=== PATIENT | female | born 1960 | race Caucasian/White ===

== ENCOUNTER → 2017-06-09 15:34 | Outpatient (CLI) | payer OTHER, SELFPAY ==
--- NOTE | 2017-06-09 15:51 | CT_ITS ---
STUDY: CTA CHEST REASON FOR EXAM: Female, 57 years old. Chest pain. RADIATION DOSAGE (If Supplied By Facility): CTDIvol = ( 13.81 ) mGy, DLP = ( 613.20 ) mGycm TECHNIQUE: The examination was performed with the intravenous administration of 75ml ml of Isovue 370 contrast material. Post-processing of the angiographic images was performed, with multiplanar reformation and 3D reconstruction. Individualized dose optimization techniques were used for this CT. COMPARISON: None. FINDINGS: Within the lower pole of the left lobe of the thyroid gland there is a 2.2 x 2.3 x 2.0 cm well-circumscribed low-attenuation rounded focus. There are additional too small to characterize low-attenuation foci within the thyroid gland. Within the left breast there is a 6.5 mm well-circumscribed nodular density present. There is enhancement of the main pulmonary artery and right and left pulmonary arteries. Normal enhancement of the bilateral peripheral pulmonary arteries. There is no demonstrated pulmonary embolism. Normal thoracic aorta and visualized great vessels. There is no demonstrated aortic dissection. Normal heart and pericardium. Normal mediastinum. Normal hilar regions. Normal visualized trachea and bronchi. The lungs are well expanded. Normal pulmonary parenchyma. Normal pleura. Normal chest wall structures. There are degenerative changes of thoracic spine. Normal visualized upper abdomen. CT/CTA Chest W/WO Contrast IMPRESSION: No demonstrated pulmonary embolism or arterial dissection. Indeterminate cystic focus within the left lobe of the thyroid gland associated with additional too small to characterize low-attenuation foci, recommend a thyroid ultrasound for further characterization. Indeterminate nodular density within the left breast that may reflect underlying lymph node, consider mammogram and/or ultrasound for further evaluation. Electronically Signed: Josefa Goel MD at 17:06 EDT Tel , Service support ,
[2017-06-09 16:11] LABS: CREATININE FINGERSTICK < 0.6 mg/dL (0.55-1.02); EGFR FINGERSTICK > 60.0000 mL/min (>60)
[2017-06-09 19:17] LABS: Anion Gap 6 (5-15); BUN 13 mg/dL (7-18); BUN/Creat Ratio 22.8 RATIO (10-20); Calcium,Total 10.2 mg/dL (8.5-10.1); Chloride 105 mmol/L (98-107); Creatinine, Serum 0.57 mg/dL (0.55-1.02); EST Glomerular Filtration Rate 115 mL/min (>60); Est Glom Filt Rate - Afr Amer 139 mL/min (>60); Glucose 127 mg/dL (74-106); Potassium 3.9 mmol/L (3.5-5.1); Sodium Level 139 mmol/L (136-145)
[2017-06-09 19:50] LABS: Vitamin D,25 Hydroxy 10.7 ng/mL (29.95-100.01)
== END ==
PROVIDERS: Family Provider Family Medicine; PCP Family Medicine; Visit Provider Family Medicine
DX: Z00.00 Encounter for general adult medical examination without abnormal findings (principal); R07.9 Chest pain, unspecified
CPT/HCPCS: 71275; 80048; 82306; Q9967; A4216

== ENCOUNTER → 2017-06-09 17:23 | Outpatient (CLI) | payer OTHER, SELFPAY | PROVIDERS: Family Provider Family Medicine; PCP Family Medicine; Visit Provider Family Medicine | DX: Z00.00 Encounter for general adult medical examination without abnormal findings (principal) ==

== ENCOUNTER → 2017-06-16 09:31 | Outpatient (CLI) | payer OTHER, SELFPAY ==
--- NOTE | 2017-06-16 09:34 | BI_ITS ---
MAMMOGRAPHY - BILATERAL DIAGNOSTIC REASON FOR EXAM: Female, 57 years old. History of a 6.3 mm nodule in the left breast seen on prior CT scan of the thorax. PERTINENT HISTORY: Mother with breast cancer. TECHNIQUE: Digital bilateral breast marii (3D mammographic acquisition) in the CC and MLO projections. 2-D mediolateral oblique (MLO) and craniocaudad (CC) views of both breasts were obtained. CAD: Full Field Digital Mammography with Computer Added Detection was performed. COMPARISON: Comparison is made with prior outside examination dated December 14, 2015. FINDINGS: Breast Composition: The breasts are heterogeneously dense, which may obscure small masses. Stable 1.5 cm x 1 cm well-defined nodule in the inferior medial portion of the left breast. Correlation with ultrasound is recommended. Stable calcification in the retroareolar region of the left breast. A tissue clip marker is seen at the biopsy site. No other significant abnormalities are identified. BI/DIAG MAMM W/CAD, BILAT IMPRESSION: Stable nodular density in the inferior medial aspect of the left breast as described. Correlation with ultrasound is recommended. ASSESSMENT CATEGORY: BIRADS Category 0: Incomplete. Need additional imaging evaluation. A letter regarding these results will be sent to the patient by the facility within 30 days. Approximately 10% of breast cancers are not detected by mammography. A normal mammogram should not delay biopsy of a clinically suspicious abnormality. Electronically Signed: Dennis Ram MD at 12:35 EDT Tel [phone], Service support ,
--- NOTE | 2017-06-16 10:44 | US_ITS ---
STUDY: ULTRASOUND BREAST - LEFT REASON FOR EXAM: Female, 57 years old. Left breast mass. TECHNIQUE: Axial and longitudinal images of the LEFT breast were performed with a high resolution ultrasound transducer. COMPARISON: Comparison is made with prior mammogram done earlier today and prior CT scan of thorax dated June 09, 2017. FINDINGS: LEFT Breast: There is a 1 cm x 1 cm x 0.6 cm hypoechoic slightly lobulated nodule at the 8:00 position in the breast at 3 cm from the nipple. This corresponds to the mammographic abnormality. A biopsy is recommended for further evaluation. US/Breast Limited Unilateral IMPRESSION: 1 cm x 1 cm x 0.6 cm slightly lobulated hypoechoic solid nodule at the 8:00 position in the breast at 3 cm from nipple. This corresponds to the mammographic findings. A biopsy is recommended. ASSESSMENT CATEGORY: BIRADS Category 4: Suspicious - Biopsy Should Be Considered. A letter regarding these results will be sent to the patient by the facility within 30 days. Electronically Signed: Dennis Ram MD at 13:24 EDT Tel [phone], Service support ,
--- NOTE | 2017-06-16 11:02 | US_ITS ---
STUDY: THYROID ULTRASOUND REASON FOR EXAM: Female, 57 years old. Nodule TECHNIQUE: Ultrasound evaluation of the thyroid was performed with real-time and static jennings-scale imaging. COMPARISON: None. FINDINGS: RIGHT LOBE: The right lobe of the thyroid gland measures 8.8 x 1.8 x 1.7 cm. There is a heterogeneous echotexture. There are multiple small cystic structures within the right thyroid measuring 1.0 x 0.8 x 0.5 cm. LEFT LOBE: The left lobe of the thyroid gland measures 5.7 x 1.9 x 1.4 cm. There is a heterogeneous echotexture. There are multiple nodules in the left thyroid some isodense and/or solid. There are multiple cystic structures with central calcification. The largest of which measures 2.1 x 1.0 cm which is partially solid and partially cystic with vascularity. The largest cyst on the left side measures 2.3 x 1.6 cm. ISTHMUS: The isthmus measures 4 mm . The regional lymph nodes are normal. US/Thyroid IMPRESSION: Endings are most consistent with a multinodular goiter. There are most likely benign-appearing colloid cysts on the right side. On the left side there are larger cysts and a focal more solid-appearing mass that measures 2.1 x 1.0 cm partially cystic and partially solid. Lesser remote study can prove long-term stability, Recommend follow-up in 6 months to ensure stability. Electronically Signed: Zulema Cárdenas MD at 15:33 EDT Tel , Service support ,
== END ==
LOC: OPBI 09:32
PROVIDERS: Family Provider Family Medicine; PCP Family Medicine; Visit Provider Family Medicine
DX: Z12.31 Encounter for screening mammogram for malignant neoplasm of breast (principal); N63.42 Unspecified lump in left breast, subareolar; E04.1 Nontoxic single thyroid nodule
CPT/HCPCS: 76536; 76642; 77062; 77066; G0279

== ENCOUNTER → 2017-06-17 12:48 | Outpatient (CLI) | payer OTHER, SELFPAY ==
--- NOTE | 2017-06-17 12:56 | BD_ITS ---
STUDY: DUAL ENERGY X-RAY ABSORPTIOMETRY / DXA REASON FOR EXAM: Female, 57 years old. The patient is postmenopausal. Loss of height. TECHNIQUE: Bone Mineral Density (BMD) measurements of lumbar spine and bilateral hips were obtained. COMPARISON: None. FINDINGS: Lumbar Spine (L1-L4): g/cm2 (1.042) / T-score (-1.3) / Z-score (-0.2) Findings are suggestive of osteopenia with a moderate fracture risk. Left Femur Total: g/cm2 (1.031) / T-score (0.2) / Z-score (1.1) Left Femoral Neck: g/cm2 (0.957) / T-score (-0.6) / Z-score (0.6) Right Femur Total: g/cm2 (1.007) / T-score (0.0) / Z-score (0.9) Right Femoral Neck: g/cm2 (0.960) / T-score (-0.6) / Z-score (0.6) BD/Dexa Bone Density Study IMPRESSION: The patient is considered osteopenic at the level of the lumbar spine as outlined below according to World Juan David Organization (WHO) criteria with a moderate fracture risk. Reference Information: The T-score is the number of standard deviations above or below the standard which is normal for young adults at their peak bone mineral density. The World Health Organization (WHO) interprets the T-scores as follows: Above -1 Normal bone density Between -1 and -2.5 Osteopenia Equal to / or below -2.5 Osteoporosis As a practical clinical guideline, osteopenia may be graded as follows: Mild -1 through -1.5 Moderate -1.6 through -2.0 Severe -2.1 through -2.4 The Z-score is the number of standard deviations above or below age-matched controls. A Z-score of less than -1.5 would be considered abnormal. References: 1. NIH Osteoporosis and Related Bone Diseases http://www.osteo.org 2. International Society for Clinical Densitometry http://www.iscd.org 3. National Osteoporosis Foundation http://www.nof.org Electronically Signed: Dennis Ram MD at 15:00 EDT Tel [phone], Service support ,
== END ==
PROVIDERS: Family Provider Family Medicine; PCP Family Medicine; Visit Provider Family Medicine
DX: Z78.0 Asymptomatic menopausal state (principal)
CPT/HCPCS: 77080

== ENCOUNTER → 2017-07-01 08:47 | Outpatient (CLI) | payer OTHER, SELFPAY ==
--- NOTE | 2017-06-30 14:00 | BRBX_PTH ---
PATIENT: FRANKO SARMIENTO LOC: [facility] U#:[id number] AGE/SX: 65/F ROOM: RE07/01/[address]: Dr. Cheo Serna MD : 1960 BED: DIS: SPEC #: [id number] RECD: 07/01/17 08:44 STATUS: DAVID CHAPIS #: [id number] LUCHO: 06/30/17 14:[address]: Cheo Serna DEPT: SURGICAL PATHOLOGY RECD BY: Dereck Schwartz Tissues: Left breast, NOS Procedures: Surgery Specimen Level IV HEADER OPERATION: Needle core biopsy left breast PRE-OP DIAGNOSIS: Abnormal mammogram R92.8 TISSUE SUBMITTED: Left breast tissue ISCHEMIC TIME: <30 seconds FIXATION TIME: 29 hours MICROSCOPIC DIAGNOSIS Left breast, core biopsy: Fibroadenoma. AM:ayla 07/02/17 COMMENT Reference is made to the patient?s left breast, core biopsy from 2014 ([id number]) in which a fibroadenoma was identified. MICROSCOPIC DESCRIPTION Slides are reviewed. GROSS DESCRIPTION Received in fixative is one container labeled with the patient's name and designated left breast tissue. The specimen consists of multiple elongated fragments of castanon-yellow fibroadipose tissue that in aggregate measure 1 x 0.3 x 0.1 cm. The entire specimen is submitted in one cassette. / SJ:rg 07/01/17 TC:5 [facility]: [id number]
--- NOTE | 2017-06-30 14:00 | FLU_PTH ---
PATIENT: FRANKO SARMIENTO LOC: [facility] U#:[id number] AGE/SX: 65/F ROOM: RE07/01/[address]: Dr. Cheo Serna MD : 1960 BED: DIS: SPEC #: [id number] RECD: 07/01/17 08:44 STATUS: DAVID CHAPIS #: [id number] LUCHO: 06/30/17 14:[address]: Cheo Serna DEPT: CYTOLOGY RECD BY: Dereck Schwartz Tissues: A - Thyroid gland, NOS B - Thyroid gland, NOS Procedures: Pap Stain (control) Special Stain Group II Surgery Specimen Level IV Cell Block Cytospin Fluid Cytology Other HEADER OPERATION: Ultrasound-guided fine needle aspiration left thyroid x2 PRE-OP DIAGNOSIS: Multinodular goiter E04.2 TISSUE SUBMITTED: A ? Left thyroid nodule fluid for cytology, B - Left thyroid nodule 12 slides DIAGNOSIS CYTOLOGY A. Fine needle aspiration, left thyroid nodule (cytospin and cell block): Negative for malignant cells. See comment. B. Fine needle aspiration, left thyroid nodule (smears): Adequate for evaluation. Negative, consistent with colloid nodule. AM:ayla 07/02/17 COMMENT A. The specimen is virtually acellular. CYTOLOGY STUDY Slides are reviewed. CYTOLOGY GROSS A - Received is 4 ml of red cloudy fluid labeled with the patient's name and and designated per the requisition as left thyroid. Submitted for cytology preparation including cell block. B - Received are 12 smears labeled with the patient's name and designated per the requisition as left thyroid nodule. Submitted for staining. / 07/01/17 TC:5 CPT: 93778, 15516, 25550
== END ==
PROVIDERS: Visit Provider Surgery
DX: E04.2 Nontoxic multinodular goiter (principal); R92.8 Other abnormal and inconclusive findings on diagnostic imaging of breast
CPT/HCPCS: 88108; 88161; 88305; 88313

== ENCOUNTER → 2017-09-24 11:45 | Outpatient (CLI) | payer OTHER, SELFPAY ==
[2017-09-24 14:51] LABS: Anion Gap 10 (5-15); BUN 14 mg/dL (7-18); BUN/Creat Ratio 21.7 RATIO (10-20); Calcium,Total 9.9 mg/dL (8.5-10.1); Chloride 108 mmol/L (98-107); Creatinine, Serum 0.64 mg/dL (0.55-1.02); EST Glomerular Filtration Rate 100 mL/min (>60); Est Glom Filt Rate - Afr Amer 121 mL/min (>60); Glucose 122 mg/dL (74-106); Potassium 4.5 mmol/L (3.5-5.1); Sodium Level 144 mmol/L (136-145); Thyroid Stim Hormone (TSH) 1.44 uIU/mL (0.358-3.74)
== END ==
PROVIDERS: Family Provider Family Medicine; PCP Family Medicine; Visit Provider Family Medicine
DX: E11.9 Type 2 diabetes mellitus without complications (principal); M54.6 Pain in thoracic spine
CPT/HCPCS: 36415; 71110; 80048; 83036; 84443

== ENCOUNTER → 2017-10-02 12:44 | Outpatient (CLI) | payer OTHER, SELFPAY | PROVIDERS: Family Provider Family Medicine; PCP Family Medicine; Visit Provider Family Medicine | DX: R07.9 Chest pain, unspecified (principal) | CPT/HCPCS: 71260; Q9967 ==

== ENCOUNTER → 2018-12-15 | Outpatient (CLI) | payer SELFPAY ==
[2018-12-18 17:01] LABS: HPV Reflexed? NOT INDICATED
== END | disposition home or self-care (01) ==
LOC: MFPLAB 15:57 → LABSPEC 16:00
PROVIDERS: Family Provider Family Medicine; PCP Family Medicine; Referring Provider Family Medicine; Visit Provider Nurse Practitioner Family
DX: Z01.419 Encounter for gynecological examination (general) (routine) without abnormal findings (principal)
CPT/HCPCS: 88175; G0145

== ENCOUNTER → 2018-12-24 | Outpatient (CLI) | payer OTHER, SELFPAY ==
--- NOTE | 2018-12-24 09:33 | BI_ITS ---
MAMMOGRAPHY - BILATERAL SCREENING REASON FOR EXAM: Female, 58 years old. Routine annual screening examination. PERTINENT HISTORY: Mother with breast cancer. Prior left breast biopsy. TECHNIQUE: Digital bilateral breast godfrey (3D mammographic acquisition) in the CC and MLO projections. 2-D mediolateral oblique (MLO) and craniocaudad (CC) views of both breasts were obtained. CAD: Full Field Digital Mammography with Computer Added Detection was performed. COMPARISON: Comparison is made with prior study dated June 16, 2017. FINDINGS: Breast Composition: The breasts are heterogeneously dense, which may obscure small masses. A tissue clip marker is seen within a 1 cm well-defined nodule in the inferior medial portion of the left breast. A tissue clip marker is seen within it. Stable appearance of the bilateral axillary lymph nodes. No other significant abnormalities are identified. Status post biopsy of the nodular density in the inferior medial aspect of the left breast. There has been no significant change since the prior study. BI/SCREEN MAMM (CAD) W/GODFREY BILAT IMPRESSION: Stable bilateral screening mammogram. Yearly follow-up mammogram recommended. (A) ASSESSMENT CATEGORY: BIRADS Category 2: Benign. A letter regarding these results will be sent to the patient by the facility within 30 days. Approximately 10% of breast cancers are not detected by mammography. A normal mammogram should not delay biopsy of a clinically suspicious abnormality. [id number] Electronically Signed: Dennis Ram, at 10:26 EST , Service support ,
== END | disposition home or self-care (01) ==
PROVIDERS: Family Provider Family Medicine; PCP Family Medicine; Referring Provider Family Medicine; Visit Provider Family Medicine
DX: Z12.31 Encounter for screening mammogram for malignant neoplasm of breast (principal)
CPT/HCPCS: 77063; 77067

== ENCOUNTER 2020-04-25 13:30 | Outpatient (RCR) | payer OTHER, SELFPAY ==
[2020-04-25] MEDS: COVID-19 VACC, MRNA(PFIZER)/PF 30 MCG/0.3 ML SYRINGE IM (18:16)
[2020-05-16] MEDS: COVID-19 VACC, MRNA(PFIZER)/PF 30 MCG/0.3 ML SYRINGE IM (18:10)
== END 2020-04-25 23:59 ==
LOC: IMMUN 13:30
PROVIDERS: PCP Family Medicine; Referring Provider Family Medicine; Visit Provider Family Medicine
DX: Z23 Encounter for immunization (principal)
CPT/HCPCS: 0001A; 0002A; 91300

== ENCOUNTER → 2021-01-17 | Outpatient (CLI) | payer OTHER, SELFPAY ==
[2021-01-17 16:23] LABS: Bacteria 0 SEEN /hpf (None Seen); Mucous, Urine 0 SEEN /hpf (<or=2+); Red Blood Cells-Urine 0 SEEN /hpf (0-5); Squamous Epithelial Cells - UA 0 SEEN /hpf (5-10); White Blood Cells 0 SEEN /hpf (0-5)
[2021-01-17 16:41] LABS: Color, Urine Yellow (Yellow); Glucose, Dipstick 250 mg/dl (Normal); Ketone-Dipstick Negative (Negative); Leukocyte Esterase-Dipstick 25 /ul (Negative); Nitrite-Dipstick Negative (Negative); Occult Blood-Urine Negative /ul (Negative); Protein-Dipstick Negative (Negative); Specific Gravity, Urine 1.015 (1.002-1.030); Urine Bilirubin Dipstick Negative (Negative); Urine Clarity Clear (Clear); Urine Urobilinogen Normal (Normal)
== END | disposition home or self-care (01) ==
LOC: LABSPEC 15:40
PROVIDERS: PCP Family Medicine; Visit Provider Physician Assistant
DX: R35.0 Frequency of micturition (principal)
CPT/HCPCS: 81001; 87086

== ENCOUNTER → 2021-01-18 08:14 | Outpatient (CLI) | payer OTHER, SELFPAY ==
[2021-01-18 11:02] LABS: Absolute Lymphocyte Count 1.51 X10^3/uL (0.83-4.51); Absolute Neutrophil Count 5.9 X10^3/uL (2.0-7.7); Basophil# 0.02 X10^3/uL; Basophil% 0.2 % (0-1); Eosinophil# 0.25 X10^3/uL; Hematocrit 46.8 % (37-47); Hemoglobin 15.1 g/dL (12.0-15.0); Lymphocyte # 1.51 X10^3/ul (0.83-4.51); Mean Corp Hgb Conc 32.3 g/dL (32-36); Mean Corpuscular Hgb 29.2 pg (27.0-32.0); Mean Corpuscular Volume 90.5 fL (81-99); Mean Platelet Vol. 9.1 fl (6.2-12.0); Monocyte% 8.3 % (0-10); NRBC Flagged by Analyzer 0 % (0-5); Neutrophil % 70.1 % (47-70); Platelet Count 253 K/mm3 (150-450); RBC Distribution Width CV 12.6 % (11.6-14.6); RBC Distribution Width SD 41.9 fl (35.1-43.9); Red Blood Count 5.17 M/mm3 (4.2-5.4); White Blood Count 8.4 K/mm3 (4.4-11.0)
[2021-01-18 11:20] LABS: Hemoglobin A1c 9.4 % (3.8-5.6)
[2021-01-18 11:24] LABS: Anion Gap 7 (5-15); BUN 13 mg/dL (7-18); BUN/Creat Ratio 20.8 RATIO (10-20); Calcium,Total 10.1 mg/dL (8.5-10.1); Chloride 105 mmol/L (98-107); Cholesterol 225 mg/dL (200); Creatinine, Serum 0.63 mg/dL (0.55-1.02); EST Glomerular Filtration Rate 102 mL/min (>60); Est Glom Filt Rate - Afr Amer 124 mL/min (>60); Glucose 269 mg/dL (74-106); High Density Lipoprotein 56 mg/dL; Potassium 4.1 mmol/L (3.5-5.1); Sodium Level 139 mmol/L (136-145); Triglycerides 225 mg/dL; Very Low Density Lipoprotein 45 mg/dL (5-40)
[2021-01-18 15:36] LABS: Microalbumin,Random Urine 39.9 mg/L (NO RANGE EST.); Microalbumin:Creatinine Ratio 26.2 mg/g CRE (<30 mg/g CRE)
== END ==
PROVIDERS: PCP Family Medicine; Referring Provider Family Medicine; Visit Provider Family Medicine
DX: E11.65 Type 2 diabetes mellitus with hyperglycemia (principal); R53.83 Other fatigue
CPT/HCPCS: 36415; 80048; 80061; 82043; 82570; 83036; 85025

== ENCOUNTER 2021-04-20 13:34 | Outpatient (CLI) | payer MEDICAID, SELFPAY ==
--- NOTE | 2021-04-20 13:38 | BI_ITS ---
MAMMOGRAPHY - BILATERAL SCREENING REASON FOR EXAM: Female, 61 years old. Routine annual screening examination. PERTINENT HISTORY: Mother with breast cancer. Prior left breast biopsy. TECHNIQUE: Digital bilateral breast godfrey (3D mammographic acquisition) in the CC and MLO projections. 2-D mediolateral oblique (MLO) and craniocaudad (CC) views of both breasts were obtained. CAD: Full Field Digital Mammography with Computer Added Detection was performed. COMPARISON: Comparison is made with prior study dated 12/24/2018 and 06/16/2017. FINDINGS: Breast Composition: The breasts are heterogeneously dense, which may obscure small masses. New focal cluster microcalcification is seen in the mid medial portion of the left breast. Biopsy recommended. A tissue clip marker is once again seen within a 1 cm well-defined nodule in the inferior medial portion of the left breast. Stable calcifying nodule in the retroareolar region of the left breast. No other significant abnormalities are identified. BI/SCRN MAMM (CAD)W/GODFREY BILAT IMPRESSION: New focal cluster microcalcification seen in the mid medial portion of the left breast. Biopsy is recommended. ASSESSMENT CATEGORY: BIRADS Category 4: Suspicious - Biopsy Should Be Considered. A letter regarding these results will be sent to the patient by the facility within 30 days. Approximately 10% of breast cancers are not detected by mammography. A normal mammogram should not delay biopsy of a clinically suspicious abnormality. [id number] Electronically Signed: Dennis Ram MD at 14:28 EST ,
== END 2021-04-20 23:59 | disposition home or self-care (01) ==
PROVIDERS: PCP Family Medicine; Referring Provider Internal Medicine; Visit Provider Internal Medicine
DX: Z12.31 Encounter for screening mammogram for malignant neoplasm of breast (principal); Z80.3 Family history of malignant neoplasm of breast
CPT/HCPCS: 77063; 77067

== ENCOUNTER 2021-05-04 08:31 | Outpatient (CLI) | payer MEDICAID, SELFPAY ==
--- NOTE | 2021-05-04 09:15 | BRBX_PTH ---
PATIENT: FRANKO SARMIENTO LOC: [facility] U#:[id number] AGE/SX: 61/F ROOM: RE05/04/[address]: Dr. Ashley Rodriguez MD : 1960 BED: DIS: 05/04/2021 SPEC #: [id number] RECD: 05/04/21 09:54 STATUS: DAVID REAntonio #: [id number] LUCHO: 05/04/21 09:[address]: Ashley Rodriguez DEPT: SURGICAL PATHOLOGY RECD BY: Eleanor Rodriguez ENTERED: 05/04/21 11:01 SP TYPE: BREAST BX OT DR: Dr. Belle Miguel MD Tissues: Left breast, NOS Procedures: Surgery Specimen Level IV HEADER OPERATION: Left stereotactic breast biopsy PRE-OP DIAGNOSIS: Left medial portion breast macrocalcifications TISSUE SUBMITTED: Left breast core tissue ISCHEMIC TIME: 2 minutes FIXATION TIME: 58 hours MICROSCOPIC DIAGNOSIS Left breast, medial portion breast microcalcifications, stereotactic core biopsy: Hyalinized fibroadenoma with calcifications. Focal minimal fibrocystic changes and mild intraductal hyperplasia without atypia. Negative for malignancy. See comment. LIA:ayla 05/07/2021 COMMENT Correlation with clinical, radiologic findings and appropriate follow up are necessary. MICROSCOPIC DESCRIPTION Slides are reviewed. GROSS DESCRIPTION Received in fixative is one container labeled with the patient's name and designated left breast. The specimen consists of multiple elongated fragments of castanon-yellow fibroadipose tissue that in aggregate measure 5 x 3 x 0.3 cm. The entire specimen is submitted in two cassettes. / LIA:ayla 05/04/2021 TC:1 CPT: 08759
--- NOTE | 2021-05-04 09:34 | OP.PCM_ITS ---
Report of Operation Date of Procedure: 05/04/21 Pre-Operative Diagnosis: Left breast microcalcifications Post-Operative Diagnosis: Same Surgery/Procedure Performed:: Stereotactic guided left breast biopsy Surgeon: Ashley Rodriguez Type of Anesthesia: General/Supplemental Specimen's removed: Left breast microcalcifications?medial breast Estimated Blood Loss (mL): Minimal Description of Procedure: Procedure: Left stereotactic core biopsy Indications: 61 year-old female with microcalcifications in the medial aspect of the left breast. Risk benefits were discussed the patient and she elected to proceed with stereotactic core biopsy with clip placement Description of procedure: Patient was brought into the mammography suite and palacio d prone on the stereotactic table. A timeout was completed verifying correct patient, procedure, site, specially, prior to beginning procedure. The left breast was prepped and draped in usual sterile fashion and using local anesthesia was obtained with 1% lidocaine. Patient's left breast was positioned and placed into compression. Initial film showed calcifications are in the center of the compression paddle. 15? views were then taken. The calcifications were localized. The left breast was prepped draped in usual sterile fashion. An 8-gauge mammotome was set up according to the digital coordinates. The tract of the mammotome was anesthetized with local anesthesia and an incision was made with the 11 blade scalpel at the entry site. The mammotome was advanced to the prefire state. Pre-prior films were checked and verified. The mammotome was fired. Post fire films were also checked and verified. Biopsies were taken from 7:00 to 12:00. The specimen was x-rayed and all the calcifications were within the specimen. Mammotome clip was placed at the 12 o'clock position. The mammotome was removed from the breast. An additional films were taken which showed all calcifications were removed and a clip was in place. Pressure was held for hemostasis. Once hemostasis was assured the wound was dressed with Steri-Strips and OpSite. The patient tolerated the procedure well and was discharged from the mammography suite good condition. Complications none
== END 2021-05-04 23:59 | disposition home or self-care (01) ==
PROVIDERS: PCP Internal Medicine; Referring Provider Surgery; Visit Provider Surgery
DX: R92.0 Mammographic microcalcification found on diagnostic imaging of breast (principal)
CPT/HCPCS: 19081; 88305; J7050; A4648

== ENCOUNTER → 2021-10-01 | Outpatient (CLI) | payer MEDICAID, SELFPAY ==
[2021-10-01 12:33] LABS: Absolute Lymphocyte Count 1.86 X10^3/uL (0.83-4.51); Absolute Neutrophil Count 2.8 X10^3/uL (2.0-7.7); Basophil# 0.01 X10^3/uL; Basophil% 0.2 % (0-1); Eosinophil# 0.26 X10^3/uL; Eosinophils% 4.8 % (0-5); Hematocrit 42.2 % (37-47); Lymphocyte # 1.86 X10^3/ul (0.83-4.51); Lymphocyte % 34.2 % (19-41); Mean Corp Hgb Conc 33.2 g/dL (32-36); Mean Corpuscular Hgb 30.3 pg (27.0-32.0); Mean Corpuscular Volume 91.3 fL (81-99); Mean Platelet Vol. 9.2 fl (6.2-12.0); Monocyte% 9.2 % (0-10); NRBC Flagged by Analyzer 0 % (0-5); Neutrophil % 51.4 % (47-70); Platelet Count 229 K/mm3 (150-450); RBC Distribution Width CV 13.2 % (11.6-14.6); RBC Distribution Width SD 44.1 fl (35.1-43.9); Red Blood Count 4.62 M/mm3 (4.2-5.4); White Blood Count 5.4 K/mm3 (4.4-11.0)
[2021-10-01 13:08] LABS: ALB/GLOB Ratio 1.2 RATIO (0.9-2.4); AST(SGOT) 13 U/L (15-37); Alanine Aminotransfer ALT/SGPT 24 U/L (13-56); Albumin, Serum 3.8 g/dL (3.2-5.0); Alkaline Phosphatase 91 U/L (45-117); Anion Gap 7 (5-15); BUN 13 mg/dL (7-18); BUN/Creat Ratio 21.3 RATIO (10-20); Calcium,Total 9.4 mg/dL (8.5-10.1); Chloride 108 mmol/L (98-107); Cholesterol 205 mg/dL (200); Creatinine, Serum 0.61 mg/dL (0.55-1.02); EST Glomerular Filtration Rate 105 mL/min (>60); Est Glom Filt Rate - Afr Amer 127 mL/min (>60); Globulin 3.2 g/dL (2.2-4.2); Glucose 113 mg/dL (74-106); High Density Lipoprotein 56 mg/dL; Potassium 4.2 mmol/L (3.5-5.1); Sodium Level 140 mmol/L (136-145); Thyroid Stim Hormone (TSH) 1.24 uIU/mL (0.358-3.74); Triglycerides 124 mg/dL; Very Low Density Lipoprotein 25 mg/dL (5-40)
[2021-10-01 13:42] LABS: Vitamin D,25 Hydroxy 19.4 ng/mL
== END | disposition home or self-care (01) ==
LOC: BIMLAB 08:24
PROVIDERS: PCP Internal Medicine; Referring Provider Internal Medicine; Visit Provider Internal Medicine
DX: E11.9 Type 2 diabetes mellitus without complications (principal); E55.9 Vitamin D deficiency, unspecified; Z13.220 Encounter for screening for lipoid disorders
CPT/HCPCS: 36415; 80053; 80061; 82306; 83036; 84443; 85025

== ENCOUNTER → 2021-10-03 | Outpatient (CLI) | payer MEDICAID, SELFPAY ==
[2021-10-03 10:31] LABS: Bacteria 0 SEEN /hpf (None Seen); Mucous, Urine 0 SEEN /hpf (<or=2+); Red Blood Cells-Urine 0 SEEN /hpf (0-5); Squamous Epithelial Cells - UA 0 SEEN /hpf (5-10); White Blood Cells 0 SEEN /hpf (0-5)
[2021-10-03 12:09] LABS: Color, Urine Yellow (Yellow); Glucose, Dipstick Normal (Normal); Ketone-Dipstick Negative (Negative); Leukocyte Esterase-Dipstick 100 /ul (Negative); Nitrite-Dipstick Negative (Negative); Occult Blood-Urine Negative /ul (Negative); Protein-Dipstick Negative (Negative); Urine Bilirubin Dipstick Negative (Negative); Urine Clarity Clear (Clear); Urine Urobilinogen Normal (Normal)
== END | disposition home or self-care (01) ==
LOC: BIMLAB 10:29
PROVIDERS: PCP Internal Medicine; Referring Provider Physician Assistant; Visit Provider Physician Assistant
DX: R30.0 Dysuria (principal)
CPT/HCPCS: 81001; 87086

== ENCOUNTER → 2021-10-05 | Outpatient (CLI) | payer MEDICAID, SELFPAY ==
--- NOTE | 2021-10-05 10:25 | RAD_ITS ---
STUDY: X-RAY - THORACIC SPINE REASON FOR EXAM: Female, 61 years old. Mid back pain TECHNIQUE: 5 view(s) of the thoracic spine were obtained. COMPARISON: None. FINDINGS: Normal kyphosis of the thoracic spine. There is no substantial scoliosis. Normal thoracic vertebrae and endplates. Normal disc space heights. The soft tissue structures are unremarkable. RAD/Thoracic Spine Min 4 Views IMPRESSION: Normal x-ray examination of the thoracic spine. Electronically Signed: Silvino An MD at 12:58 EDT ,
== END | disposition home or self-care (01) ==
LOC: RAD 10:24
PROVIDERS: PCP Internal Medicine; Referring Provider Physician Assistant; Visit Provider Physician Assistant
DX: M54.6 Pain in thoracic spine (principal); R30.0 Dysuria; G89.29 Other chronic pain
CPT/HCPCS: 72074

== ENCOUNTER 2021-11-14 11:00 | Outpatient (RCR) | payer MEDICAID, SELFPAY ==
--- NOTE | 2022-01-10 07:15 | HP.PTDCSUM ---
It has been my pleasure to treat FRANKO SARMIENTO referred by ELIZABETH Mata, with the diagnosis of for a total of 7 visit(s). Discharge Date: Please see the following information for a summary of their discharge status. Subjective: Patient reports that there are days that she feels better and then she has other times that she has the pain. She has less pain and decreased symptoms with some ADL's. She is busy so she always has soreness. She would like to take a break and see if they are really helping- if they are she will come Thoracic Pain Intensity (Out of 10): 4 % Improvement: 50 Objective/Function: Posture: fair throughout. Gait: no devaition noted. ROM: WFL in all planes. Strength: Scap: fair, Shoulder: 4/5 Elbow: 5/5, wrist: 5/5 Goal 1:: Patient will be I with HEP and progression Goal Progress: Goal Met Plan: Hold 4 weeks- will either continue with POC or return to MD for further evaluation If there are questions or concerns regarding this patient's physical therapy, please feel free to call me at [phone]. Thank you for the referral of this patient. Sincerely, Lisa Dougherty, PETR Balance/Gait/Functional tests - Balance/Special Test Scores Oswestry Low Back Score: 20 Quick DASH Score: 22.7250
== END 2021-11-14 19:00 | disposition home or self-care (01) ==
LOC: PT 11:00
PROVIDERS: PCP Internal Medicine; Referring Provider Physician Assistant; Visit Provider Physician Assistant
DX: M54.6 Pain in thoracic spine (principal)
CPT/HCPCS: 97014; 97110; 97113; 97162; 97164; G0283

== ENCOUNTER → 2022-02-20 | Outpatient (CLI) | payer MEDICAID, SELFPAY ==
--- NOTE | 2022-02-20 17:30 | MRI_ITS ---
MRI of thoracic spine INDICATION: Pain in the mid left side of the back. TECHNIQUE: MRI of the thoracic spine was performed in the sagittal and axial projections utilizing T1, T2 and STIR imaging sequences. FINDINGS: Bony structures demonstrate homogeneous signal intensity except for hemangiomata within the T5, T6 and L1 vertebral bodies. No evidence for acute fracture or subluxation. Intervertebral disc space heights are well-maintained although there is multilevel disc degeneration without significant disc protrusion spinal stenosis or cord compression. Spinal cord is normal in size and homogeneous signal intensity terminating at approximately L1 MRI/Spine Thoracic (Routine) IMPRESSION: No evidence for acute fracture or other significant bony pathology. Multilevel disc degeneration without disc protrusion spinal stenosis or cord compression Electronically Signed: Palmer Cortez MD at 18:46 EST ,
== END | disposition home or self-care (01) ==
LOC: MRI 17:03
PROVIDERS: PCP Internal Medicine; Referring Provider Internal Medicine; Visit Provider Internal Medicine
DX: M54.6 Pain in thoracic spine (principal)
CPT/HCPCS: 72146

== ENCOUNTER → 2022-07-03 | Outpatient (CLI) | payer MEDICAID, SELFPAY ==
--- NOTE | 2022-07-03 12:22 | US_ITS ---
INDICATION: left adnexal pain EXAMINATION: US Pelvis Non OB w/ Transvag and Vascular Doppler Limited TECHNIQUE: Transabdominal and transvaginal (for optimal evaluation of the adnexa) pelvic ultrasound was performed. Grayscale, spectral waveform, and color flow Doppler evaluation of the adnexa. COMPARISON: None. FINDINGS: Retroverted and retroflexed uterus measures 5.7 x 2 x 4.2 cm, transvaginally. Endometrial stripe measures 4.2 mm diameter. No discrete uterine lesion demonstrated. Unremarkable cervix. No adnexal mass or significant free pelvic fluid detected. Bilateral ovaries demonstrate normal color Doppler flow and spectral Doppler waveforms. Transvaginally, right ovary measures 2.5 x 1.3 x 1.8 cm and left ovary 2.6 x 1 x 2 cm. Anechoic left ovarian cyst measures 1.1 cm diameter. Unremarkable urinary bladder with volume of 654 mL. US/Pelvic (Non ) IMPRESSION: 1. Pelvic ultrasound with no acute findings. 2. Small simple appearing 1.1 cm left ovarian cyst versus dominant follicle. No evidence of ovarian torsion. Electronically Signed: Dwight Hernandez MD at 23:53 EDT ,
--- NOTE | 2022-07-03 12:22 | US_ITS ---
INDICATION: left adnexal pain EXAMINATION: US Pelvis Non OB w/ Transvag and Vascular Doppler Limited TECHNIQUE: Transabdominal and transvaginal (for optimal evaluation of the adnexa) pelvic ultrasound was performed. Grayscale, spectral waveform, and color flow Doppler evaluation of the adnexa. COMPARISON: None. FINDINGS: Retroverted and retroflexed uterus measures 5.7 x 2 x 4.2 cm, transvaginally. Endometrial stripe measures 4.2 mm diameter. No discrete uterine lesion demonstrated. Unremarkable cervix. No adnexal mass or significant free pelvic fluid detected. Bilateral ovaries demonstrate normal color Doppler flow and spectral Doppler waveforms. Transvaginally, right ovary measures 2.5 x 1.3 x 1.8 cm and left ovary 2.6 x 1 x 2 cm. Anechoic left ovarian cyst measures 1.1 cm diameter. Unremarkable urinary bladder with volume of 654 mL. US/Transvaginal Non- IMPRESSION: 1. Pelvic ultrasound with no acute findings. 2. Small simple appearing 1.1 cm left ovarian cyst versus dominant follicle. No evidence of ovarian torsion. Electronically Signed: Dwight Hernandez MD at 23:53 EDT ,
== END | disposition home or self-care (01) ==
LOC: US 12:21
PROVIDERS: PCP Internal Medicine; Referring Provider Nurse Practitioner Women's Health; Visit Provider Nurse Practitioner Women's Health
DX: R10.2 Pelvic and perineal pain (principal)
CPT/HCPCS: 76830; 76856; 93976

== ENCOUNTER → 2022-08-14 | Outpatient (CLI) | payer MEDICAID, SELFPAY ==
--- NOTE | 2022-08-14 12:54 | US_ITS ---
INDICATION: pelvic pain EXAMINATION: Ultrasound US Pelvis Non OB Complete With Transvaginal Imaging TECHNIQUE: Transabdominal and transvaginal pelvic ultrasound was performed. Grayscale, spectral waveform, and color flow Doppler evaluation of the adnexa. COMPARISON: Pelvic ultrasound 07/03/2022 LMP: 2000. FINDINGS: UTERUS: 6.1 x 3.8 x 2.5 cm. Retroflexed. Hypoechoic lesion likely a fibroid with a tiny calcification, posterior fundus on the left, measures 1.2 x 1.1 x 1.1 cm adjacent to the endometrium. ENDOMETRIUM: Endometrium is distended with complex fluid. Not significantly thickened. 0.3 cm. OVARIES: Right ovary: 2.0 x 0.7 x 1.1 cm. Left ovary: 2.3 x 1.0 x 1.7 cm. Follicle 1.0 x 0.8 x 0.9 cm. The ovaries appear unremarkable. Vascular flow demonstrated. No findings to suggest ovarian torsion. FREE FLUID: None. US/Pelvic w/ Transvaginal IMPRESSION: Uterine fibroid. Endometrium distended with complex fluid without definite endometrial thickening. Electronically Signed: Brandi Molina MD at 0:17 EDT ,
== END | disposition home or self-care (01) ==
PROVIDERS: PCP Internal Medicine; Referring Provider Nurse Practitioner Women's Health; Visit Provider Nurse Practitioner Women's Health
DX: R10.2 Pelvic and perineal pain (principal)
CPT/HCPCS: 76830; 76856; 93976

== ENCOUNTER → 2022-08-28 | Outpatient (CLI) | payer MEDICAID, SELFPAY ==
--- NOTE | 2022-08-28 | EMB_PTH ---
PATIENT: FRANKO SARMIENTO LOC: [facility] U#:[id number] AGE/SX: 62/F ROOM: RE08/28/[address]: ALLISON Patton : 1960 BED: DIS: 08/28/2022 SPEC #: [id number] RECD: 08/28/22 16:21 STATUS: DAVID NATION #: [id number] LUCHO: 08/28/22 00:[address]: Arlet Peres NP DEPT: SURGICAL PATHOLOGY RECD BY: Eleanor Rodriguez ENTERED: 08/29/22 10:10 SP TYPE: ENDOM BX/C KAMINI DR: Dr. Belle Miguel MD Tissues: Endometrium, NOS Procedures: Surgery Specimen Level IV HEADER OPERATION: Endometrial biopsy PRE-OP DIAGNOSIS: Thickened uterine lining TISSUE SUBMITTED: Endometrial tissue MICROSCOPIC DIAGNOSIS Endometrial biopsy: Superficial fragments of benign endometrial tissue. Scant fragments of benign ecto- and endocervical epithelium. SJ:ayla 08/30/2022 MICROSCOPIC DESCRIPTION Slides are reviewed. GROSS DESCRIPTION Received is one container labeled with the patient's name and not further designated. The specimen consists of a scant amount of soft tissue. The specimen is totally submitted for cell block preparation. / LIA:ayla 08/29/2022 TC:4 CPT: 56407
== END | disposition home or self-care (01) ==
LOC: LABSPEC 16:28
PROVIDERS: PCP Internal Medicine; Referring Provider Nurse Practitioner Women's Health; Visit Provider Nurse Practitioner Women's Health
DX: R93.89 Abnormal findings on diagnostic imaging of other specified body structures (principal)
CPT/HCPCS: 88305

== ENCOUNTER → 2022-10-30 | Outpatient (CLI) | payer MEDICAID, SELFPAY ==
--- NOTE | 2022-10-30 12:44 | US_ITS ---
EXAM: US PELVIS TRANSABDOMINAL AND TRANSVAGINAL, COMPLETE AND US DUPLEX ARTERIAL/VENOUS OF THE PELVIS, COMPLETE CLINICAL INDICATION: pelvic pain -- PREVIOUS FLUID IN ENDO TECHNIQUE: Transabdominal and transvaginal pelvic ultrasound with grayscale imaging. Transvaginal imaging was used for better evaluation of the endometrium and adnexa. Duplex ultrasound scan of the arterial and venous flow of the pelvis with color Doppler flow and spectral waveform analysis. COMPARISON: 08/14/2022 FINDINGS: UTERUS/CERVIX: The uterus is retroverted. Uterus 5.7, 3.4, 2.2, 0.5 there is a 1.1 cm intramural uterine fibroid. Minimal fluid is present within the endometrium. Minimal fluid is present within the endometrium which is nonspecific. RIGHT OVARY: No significant abnormality. There is normal arterial inflow and venous outflow present in the right ovary. The right ovary measures 2.0 x 1.8 x 1.4 cm. LEFT OVARY: Simple cyst/dominant follicle of the left ovary measuring 1 cm for which no follow-up is indicated. There is normal arterial inflow and venous outflow present in the left ovary. The left ovary measures 1.4 x 1.7 x 0.8 cm. FREE FLUID: None. BLADDER: Normal as visualized. Wall is normal thickness for degree of distention. US/Pelvic (Non ) IMPRESSION: 1. Minimal nonspecific fluid within the endometrium which is not thickened. Given persistence, consider PHARMACY BUYER consultation. 2. Fibroid uterus. 3. 1 cm simple cyst/dominant follicle of the left ovary for which no follow-up is indicated. Electronically Signed: Bimal Pascual DO at 21:00 EDT ,
== END | disposition home or self-care (01) ==
LOC: US 12:40
PROVIDERS: PCP Internal Medicine; Referring Provider Nurse Practitioner Women's Health; Visit Provider Nurse Practitioner Women's Health
DX: R10.2 Pelvic and perineal pain (principal); N85.8 Other specified noninflammatory disorders of uterus
CPT/HCPCS: 76830; 76856; 93976

== ENCOUNTER → 2022-11-21 | Outpatient (CLI) | payer MEDICAID, SELFPAY ==
[2022-11-21 13:22] LABS: Absolute Lymphocyte Count 2.43 X10^3/uL (0.83-4.51); Basophil# 0.03 X10^3/uL; Basophil% 0.4 % (0-1); Eosinophil# 0.34 X10^3/uL; Eosinophils% 4.6 % (0-5); Lymphocyte # 2.43 X10^3/ul (0.83-4.51); Lymphocyte % 32.8 % (19-41); Mean Corp Hgb Conc 32.6 g/dL (32-36); Mean Corpuscular Hgb 29.6 pg (27.0-32.0); Mean Corpuscular Volume 90.9 fL (81-99); Mean Platelet Vol. 8.8 fl (6.2-12.0); Monocyte# 0.56 X10^3/uL; Monocyte% 7.6 % (0-10); NRBC Flagged by Analyzer 0 % (0-5); Neutrophil # 4.02 X10^3/uL (2.7-7.7); Neutrophil % 54.3 % (47-70); Platelet Count 247 K/mm3 (150-450); RBC Distribution Width CV 12.7 % (11.6-14.6); Red Blood Count 4.73 M/mm3 (4.2-5.4); White Blood Count 7.4 K/mm3 (4.4-11.0)
[2022-11-21 13:50] LABS: AST(SGOT) 10 U/L (15-37); Alanine Aminotransfer ALT/SGPT 25 U/L (13-56); Albumin, Serum 3.7 g/dL (3.2-5.0); Alkaline Phosphatase 84 U/L (45-117); Anion Gap 3 (5-15); BUN 15 mg/dL (7-18); BUN/Creat Ratio 24.2 RATIO (10-20); Calcium,Total 10.4 mg/dL (8.5-10.1); Chloride 108 mmol/L (98-107); Creatinine, Serum 0.62 mg/dL (0.55-1.02); EST Glomerular Filtration Rate 103 mL/min (>60); Est Glom Filt Rate - Afr Amer 124 mL/min (>60); Globulin 3.6 g/dL (2.2-4.2); Glucose 107 mg/dL (74-106); Hemoglobin A1c 5.7 % (3.8-5.6); Potassium 4.1 mmol/L (3.5-5.1); Protein, Total 7.3 g/dL (6.4-8.2); Sodium Level 140 mmol/L (136-145)
== END | disposition home or self-care (01) ==
PROVIDERS: PCP Internal Medicine; Referring Provider Obstetrics & Gynecology; Visit Provider Obstetrics & Gynecology
DX: R30.0 Dysuria (principal); Z13.0 Encounter for screening for diseases of the blood and blood-forming organs and certain disorders involving the immune mechanism; Z13.1 Encounter for screening for diabetes mellitus
CPT/HCPCS: 36415; 80053; 83036; 85025; 87086

== ENCOUNTER 2023-01-14 12:42 | Day surgery (SDC) | payer MEDICARE, SELFPAY ==
--- NOTE | 2023-01-08 09:02 | EKG12_ITS ---
Test Reason : PREOP Blood Pressure : / mmHG Vent. Rate : 068 BPM Atrial Rate : 068 BPM P-R Int : 158 ms QRS Dur : 088 ms QT Int : 380 ms P-R-T Axes : 043 031 038 degrees QTc Int : 404 ms Normal sinus rhythm Normal ECG Confirmed by JEWELS EARLY MD ([id number]), scientific publications editor GINI HOUGH ([id number]) on 01/09/2023 9:22:46 AM Referred By: Candice Ravi Confirmed By:JEWELS EARLY MD
[2023-01-14] VITALS (10 sets, daily range): BP systolic 103–127; BP diastolic 66–74; PULSE 62–89; RESP 14–18; TEMP 36.2–36.9; O2SAT 92–99; BMI 25.2
--- NOTE | 2023-01-14 10:47 | HP.PCM_ITS ---
History and Physical Date of Admission: 01/14/23 Vital Signs 08/28/2312:06 11/21/2310:14 11/21/2310:17 Height 5 ft 6 in 5 ft 6 in 5 ft 6 in Weight: 155 lb 6 oz BMI 25.0 BP 110/70 Temp 97.5 F L Intake Visit Reasons: Fluid in endometrium Faucets Assembler Required: No Allergies Penicillins Allergy (Verified 11/21/22 11:15) OtherSulfa (Sulfonamide Antibiotics) Allergy (Verified 11/21/22 11:15) Other Medications lancets 21 gauge #100 ea 03/30/21 [Rx Confirmed 11/21/22] alcohol swabs (BD Alcohol Swabs) 1 pad topical .Daily. #100 ea 04/02/21 [Rx Confirmed 11/21/22] blood sugar diagnostic (Blood Glucose Test strips) #100 ea 04/02/21 [Rx Confirmed 11/21/22] blood-glucose meter #1 ea 04/02/21 [Rx Confirmed 11/21/22] cholecalciferol (vitamin D3) 50 mcg (2,000 unit) capsule 50 mcg PO DAILY 09/11 06/01 [History Confirmed 11/21/22] metformin 500 mg 24 hr tablet,extended release 500 mg PO DAILY #90 tabs 01/02/22 [Rx Confirmed 11/21/22] paroxetine HCl 10 mg tablet 10 mg PO DAILY #90 tabs 01/02/22 [Rx Confirmed 11/21/22] glimepiride 2 mg tablet 2 mg PO QAM #90 tabs 09/23/22 [Rx Confirmed 11/21/22] Is last menstrual period known: No Patient : No : No PFSH Medical History Abnormal ultrasound of breast Acid reflux Asthma Bee sting Carpal tunnel syndrome of right wrist Depression Diabetes Thyroid nodule Surgical History History of laparoscopic cholecystectomy Family History Mother Breast cancer ArthritisFather Cancer Brain Social History Smoking Status: Never smoker alcohol intake: never substance use type: does not use caffeine: Yes what type of physical activity do you participate in: none seatbelt use: always do you feel safe at home: Yes additional social history: - Jose HPI Fluid in endometrium Details: FRANKO SARMIENTO is a 62 year old who presents for perisstent thickened endometrium, she denies any discharge or bleeding, she feels some lower pelvic pain and discomfort. she has had multiple pelvic ultrasounds that show persistent thickened endometrium and she had a normal EMB but lining is still thick. Female Reproductive History Menopausal Symptoms: No night sweats History 5 Elective abortions Hx Para 2 Spontaneous abortions 3 Hx # Term Pregnancies Ectopic pregnancies Hx # Pregnancies Multiple births # of living children Past Pregnancies Del. Date Name GA/Weeks Outcome Route Bth Weight Infant Gen Labor Lgth Anesthesia Del Locatn Provider FOB Unknown Madi Unknown Bautista HANKINS Const Constitutional: Denies fatigue, night sweats, weight gain or weight loss ENT ENT: Reports system reviewed and no additional complaints, except as documented Cardio Card: Denies chest pain Resp Resp: Denies cough or dyspnea GI GI: Reports as per HPI; Denies abdominal pain, constipation, nausea or vomiting : Denies nipple discharge, urinary frequency, urinary incontinence, urinary hesitancy, urinary urgency, vaginal discharge, vaginal dryness, vaginal odor or vaginal pruritus Musc Musc: Denies arthralgias, back pain or muscle weakness Skin Skin/Breast: Denies alopecia, change in hair, dry skin, breast mass, breast pain, breast skin changes or nipple discharge Neuro Neuro: Reports system reviewed and no additional complaints, except as documented Psych Psych: Reports system reviewed and no additional complaints, except as documented Endo Endo: Denies cold intolerance, excessive sweating, heat intolerance or polydipsia Obie/Lymph Hematologic/Lymphatic: Denies easy bleeding, Denies easy bruising and Denies lymphadenopathy Exam Const General: cooperative, healthy appearing, comfortable and no acute distress Orientation: alert HENMT Head: normal to inspection and normocephalic Ears: hearing grossly normal bilaterally and external ears normal Nose: external nose normal and nares normal Face and sinus: normal facial exam Neck Neck: normal visual inspection and no lymphadenopathy Thyroid: thyroid normal Chest Chest palpation & inspection: normal inspection of the chest Resp Effort & Inspection: normal respiratory effort Auscultation: clear to auscultation bilaterally Cardio Rate: regular rate Rhythm: regular rhythm Heart Sounds: S1 normal and S2 normal GI Inspection: normal to inspection and non-distended Palpation: soft and no hepatosplenomegaly Musc Other: gross motor intact no deficits, full bilateral strength Skin General: no rashes or lesions noted Neuro General: patient alert, patient awake, moves all extremities and no focal motor deficits Motor: muscle tone normal throughout Extrem General: normal to inspection and no pedal edema Psych Appearance: grossly normal Mental Status: mental status grossly normal Affect: normal affect Speech and Movement: speech and movement normal Results POC Urinalysis Dip (Clinic) Office Urine Color YELLOW Last Edit by Cadence Retana on 11/21/22 11:26 Office Urine Clarity Clear Last Edit by Cadence Retana on 11/21/22 11:26 Office Urine Glucose Negative Last Edit by Cadence Retana on 11/21/22 11:26 Office Urine Ketones Trace (5) Last Edit by Cadence Retana on 11/21/22 11:26 Off Ur Spec [place] 1.010 Last Edit by Cadence Retana on 11/21/22 11:26 Office Urine pH 5 Last Edit by Cadence Retana on 11/21/22 11:26 Office Urine Bilirubin Negative Last Edit by Cadence Retana on 11/21/22 11:26 Office Urine Urobilinogen Negative Last Edit by Cadence Retana on 11/21/22 11:2 6 Office Urine Blood Negative Last Edit by Cadnece Retana on 11/21/22 11:26 Office Urine Blood Hemolyzed Negative Last Edit by Cadence Retana on 11/21/22 11:26 Office Urine Protein Negative Last Edit by Cadence Retana on 11/21/22 11:26 Office Urine Nitrate Negative Last Edit by Cadence Retana on 11/21/22 11:26 Off Ur Leukocytes Negatve Last Edit by Cadence Retana on 11/21/22 11:26 Coding Level of Care Code Off vis,est,level 4 Diagnoses Abnormal collection of fluid in uterine cavity N85.8 Pelvic pain R10.2 Assessment and Plan Assessment and Plan (1) Abnormal collection of fluid in uterine cavity: Status: Acute Comment: persistent, recommend d and c hysteroscopy possible symphion (2) Pelvic pain: Status: Acute Comment: recommend d and c hysteroscopy possible symphion Orders: Orders Culture, Urine Today R30.0 - Dysuria POC Urinalysis Dip (Clinic) Today R30.0 - Dysuria Plan After discussing the patient's diagnosis and treatment plan options, patient wishes to proceed with surgical management. I have discussed with the patient the risks, benefits, and alternatives of the procedure which include but are not limited to risks of anesthesia, bleeding, infection, possible damage to bowel, bladder, or surrounding vasculature which could lead to additional surgery to evaluate any complications. Patient agrees to procedure and wishes to proceed. ACOG/uptodate references given for additional information regarding procedure. UPDATE- I have seen the patient and performed any clinically relevant updates to the history and physical exam. Candice Ravi MD
[2023-01-14] MEDS: Lactated Ringers 1,000 ML 15 ML IV ×2 (13:20→15:09)
[2023-01-14 13:47] LABS: Bedside Glucose 64 mg/dL (74-106)
[2023-01-14] MEDS: Dextrose 5%-Lactated Ringers 1,000 ML 15 ML IV (13:47)
--- NOTE | 2023-01-14 14:35 | EMB_PTH ---
PATIENT: FRANKO SARMIENTO LOC: [facility] [place] U#:[id number] AGE/SX: 63/F ROOM: RE01/14/[address]: Dr. Candice Ravi MD : 1960 BED: DIS: 01/14/2023 SPEC #: [id number] RECD: 01/15/23 08:00 STATUS: DAVID NATION #: [id number] LUCHO: 01/14/23 14:[address]: Candice Ravi DEPT: SURGICAL PATHOLOGY RECD BY: Janet Arauz ENTERED: 01/15/23 08:01 SP TYPE: ENDOM BX/C KAMINI DR: Dr. Belle Miguel MD Tissues: Endometrium, NOS Procedures: Surgery Specimen Level IV HEADER OPERATION: Hysteroscopy, D & C Symphion PRE-OP DIAGNOSIS: Thickened endometrium TISSUE SUBMITTED: Endometrial polyps and curettings MICROSCOPIC DIAGNOSIS Endometrial polyps and curettings: Rare polypoid fragments of simple hyperplasia without atypia. Fragments of benign myometrium. Focal changes suggestive of microscopic leiomyoma. Calcifications of vessel liang. AM:ayla 01/16/2023 COMMENT Case has been reviewed in consultation with Dr. Gonzalez who concurs with the above diagnosis. IDC:SJ MICROSCOPIC DESCRIPTION Slides are reviewed. GROSS DESCRIPTION Received in fixative is one container labeled with the patient's name and designated Endometrial polyps and curettings. The specimen consists of multiple irregular fragments of light castanon soft tissue that in aggregate measure 5.0 x 3.0 x 2.2 cm. The specimen is totally submitted in two cassettes. / AM:ayla 01/15/2023 TC:5 CPT: 25945
[2023-01-14] MEDS: Lidocaine 1% (20 ml mdv) 20 ML Vial (15:37)
[2023-01-14] MEDS: Silver Nitrate (BKC) 1 EACH (15:58)
[2023-01-14] MEDS: FERRIC SUBSULFATE 8 GM SOLN (16:00)
--- NOTE | 2023-01-14 17:10 | PCM.OPRPT ---
Problems Associated Problem List Diagnoses (1) Pelvic pain: (2) Abnormal collection of fluid in uterine cavity: Report of Operation Date of Procedure: 01/14/23 Pre-Operative Diagnosis: see problem list Post-Operative Diagnosis: same Surgery/Procedure Performed:: D&C hysteroscopy polypectomy using symphion Description of Surgical Findings:: endometrial polyp Surgeon: Candice Ravi reaming machine operator for plastic: None Type of Anesthesia: Local MAC Special Medications: none Specimen's removed: EMC, polyp Drains: none Estimated Blood Loss (mL): 50 Fluids Replaced: crystalloid Description of Procedure: Patient was prepped and draped in a normal sterile fashion under MAC anesthesia. A weighted speculum was placed in the vagina and the anterior lip of the cervix was grasped with a single-tooth tenaculum. A paracervical block was placed with 1% lidocaine. Cervix was progressively dilated to allow passage of a 5 mm hysteroscope. The lining was fully visualized and noted to havetwo endometrial polyps . Uterine sounded to 8 cm. Using the symphion device, the polyps were progressively removed without complications. Direct visual curettage was performed using the device , and all specimens were sent to pathology. All instruments were removed from the vagina and excellent hemostasis was noted. Patient was awoken and taken to recovery in stable condition. Grafts/Implants Used: none Complications none Admit VTE Documentation VTE Present on Admission: No VTE Mechan Device Prophylaxis: SCD's Multi Select Codes Urinary/Genital Urinary/Genital CPT Codes: 70142 Hysteroscopy,EMC, Polypectomy
--- NOTE | 2023-01-14 17:11 | DCINST_ITS ---
Discharge Instructions Diet Discharge Diet: No restrictions Activity Discharge Activity: Return to Normal Activity, May Shower and May Take a Tub Bath (after 1 week) May resume sexual activity in: 1-2 weeks Weight Bearing Status: Weight bearing as tolerated Lifting Restrictions: none Dressing / Incision Call your doctor if you observe: Fever of 101 or Higher, Using more than 1 pad per hour, Shortness of breath and Uncontrolled pain Follow Up Care Please Follow Up With: Candice Ravi MD When: Call [phone] to schedule appointment. Test Results: Test results from this visit will be discussed in further detail at your follow- up appointment, if applicable. Discharge Plan Admission Attending Provider: Candice Ravi Primary Care Provider: Belle Miguel Discharge Orders/Prescriptions Prescriptions: No Action cholecalciferol (vitamin D3) 50 mcg (2,000 unit) capsule 50 mcg PO DAILY vitamin B complex Capsule 1 cap PO DAILY (DME) lancets 21 gauge misc See Rx Instructions .ROUTE .MEDSUPPLY Qty: 100 1RF Rx Instructions: Test daily as directed (DME) Blood Glucose Test Strip See Rx Instructions .ROUTE .MEDSUPPLY Qty: 100 1RF Rx Instructions: Test daily as directed (DME) blood-glucose meter Misc See Rx Instructions .ROUTE .MEDSUPPLY Qty: 1 0RF Rx Instructions: As directed metformin 500 mg tablet,ER rickey.retention 24 hr 500 mg PO DAILY Qty: 90 3RF glimepiride 2 mg tablet 2 mg PO QAM Qty: 90 3RF paroxetine HCl 10 mg tablet 10 mg PO DAILY Qty: 90 3RF Referrals / Follow Up: Belle Miguel MD [Primary Care Provider] - Disposition Disposition (needs filled in before D/C Order can be placed): Home, Self Care
== END 2023-01-14 18:06 | disposition home or self-care (01) ==
LOC: SDC 12:46 → AC 12:47
PROVIDERS: PCP Internal Medicine; Referring Provider Obstetrics & Gynecology; Visit Provider Obstetrics & Gynecology
PROC: 0UB98ZZ Excision of Uterus, Via Natural or Artificial Opening Endoscopic (ICD-10-PCS; CPT 58558; principal; 2023-01-14 14:20)
DX: N85.01 Benign endometrial hyperplasia (principal); E11.9 Type 2 diabetes mellitus without complications; Z79.84 Long term (current) use of oral hypoglycemic drugs; J45.909 Unspecified asthma, uncomplicated; D25.9 Leiomyoma of uterus, unspecified; K21.9 Gastro-esophageal reflux disease without esophagitis
CPT/HCPCS: 58558; 82962; 88305; 93005; J7120; J2405

== ENCOUNTER → 2023-04-25 | Outpatient (CLI) | payer MEDICARE, SELFPAY ==
[2023-04-25 10:44] LABS: Microalbumin,Random Urine 17.5 mg/L (NO RANGE EST.); Microalbumin:Creatinine Ratio 15.5 mg/g CRE (<30 mg/g CRE)
[2023-04-25 10:55] LABS: Absolute Lymphocyte Count 2.39 X10^3/uL (0.83-4.51); Absolute Neutrophil Count 3.4 X10^3/uL (2.0-7.7); Basophil# 0.01 X10^3/uL; Basophil% 0.2 % (0-1); Hematocrit 42.1 % (37-47); Lymphocyte # 2.39 X10^3/ul (0.83-4.51); Lymphocyte % 36.3 % (19-41); Mean Corp Hgb Conc 33.3 g/dL (32-36); Mean Corpuscular Hgb 29.4 pg (27.0-32.0); Mean Corpuscular Volume 88.4 fL (81-99); Mean Platelet Vol. 9.1 fl (6.2-12.0); Monocyte# 0.53 X10^3/uL; Monocyte% 8.1 % (0-10); NRBC Flagged by Analyzer 0 % (0-5); Neutrophil # 3.43 X10^3/uL (2.7-7.7); Neutrophil % 52.1 % (47-70); Platelet Count 253 K/mm3 (150-450); RBC Distribution Width CV 13.2 % (11.6-14.6); RBC Distribution Width SD 42.8 fl (35.1-43.9); Red Blood Count 4.76 M/mm3 (4.2-5.4); White Blood Count 6.6 K/mm3 (4.4-11.0)
[2023-04-25 11:24] LABS: Hemoglobin A1c 6.4 % (3.8-5.6)
[2023-04-25 11:26] LABS: Vitamin B12 409 pg/mL (211-911)
[2023-04-25 11:40] LABS: ALB/GLOB Ratio 1.3 RATIO (0.9-2.4); AST(SGOT) 11 U/L (15-37); Alanine Aminotransfer ALT/SGPT 31 U/L (13-56); Albumin, Serum 3.9 g/dL (3.2-5.0); Alkaline Phosphatase 81 U/L (45-117); Anion Gap 5 (5-15); BUN 11 mg/dL (7-18); BUN/Creat Ratio 15.8 RATIO (10-20); Calcium,Total 10.1 mg/dL (8.5-10.1); Chloride 112 mmol/L (98-107); Cholesterol 184 mg/dL (200); EST Glomerular Filtration Rate 90 mL/min (>60); Est Glom Filt Rate - Afr Amer 109 mL/min (>60); Globulin 3.1 g/dL (2.2-4.2); Glucose 155 mg/dL (74-106); High Density Lipoprotein 45 mg/dL; Potassium 3.8 mmol/L (3.5-5.1); Sodium Level 141 mmol/L (136-145); Triglycerides 100 mg/dL; Very Low Density Lipoprotein 20 mg/dL (5-40)
== END | disposition home or self-care (01) ==
LOC: MTLAB 08:03
PROVIDERS: PCP Family Medicine; Referring Provider Family Medicine; Visit Provider Family Medicine
DX: M85.80 Other specified disorders of bone density and structure, unspecified site (principal); E11.9 Type 2 diabetes mellitus without complications; Z78.0 Asymptomatic menopausal state
CPT/HCPCS: 36415; 80053; 80061; 82043; 82306; 82570; 82607; 82746; 83036; 85025

== ENCOUNTER → 2023-06-23 | Outpatient (CLI) | payer MEDICARE, SELFPAY ==
[2023-06-26 11:09] LABS: HPV APTIMA, High Risk Negative (Negative)
== END | disposition home or self-care (01) ==
PROVIDERS: PCP Family Medicine; Referring Provider Nurse Practitioner Women's Health; Visit Provider Nurse Practitioner Women's Health
DX: Z12.4 Encounter for screening for malignant neoplasm of cervix (principal); R30.0 Dysuria
CPT/HCPCS: 87086; 87624; 88175; G0145

== ENCOUNTER → 2023-07-02 | Outpatient (CLI) | payer MEDICARE, SELFPAY ==
--- NOTE | 2023-07-02 13:17 | US_ITS ---
STUDY: ULTRASOUND OF THE FEMALE PELVIS - COMPLETE REASON FOR EXAM: Female, 63 years old. Abnormal bleeding LMP: Unknown. TECHNIQUE: Transabdominal and Transvaginal TECHNICAL QUALITY: Adequate. COMPARISON: None. FINDINGS: The uterus is retroverted and is in a midline position. The uterus measures 4.5 x 4.1 x 2.3 cm. Normal uterine cervix. The endometrium measures 3 mm in thickness, and is hyperechoic. There is no demonstrated endometrial mass. There is no demonstrated myometrial mass. I.U.D. - The patient does not have an I.U.D. Neither ovary visualized.. There is no fluid in the cul-de-sac. The pre void volume of the bladder was 188 ml. Polycystic ovary disease: No. US/Pelvic w/ Transvaginal IMPRESSION: Sonographically normal uterus, no abnormal endometrial thickening, polyp or fibroid. Neither ovary visualized, no suspicious cystic mass or free fluid in the pelvis Electronically Signed: Silvino An MD at 14:49 EDT ,
== END | disposition home or self-care (01) ==
PROVIDERS: PCP Family Medicine; Referring Provider Obstetrics & Gynecology; Visit Provider Obstetrics & Gynecology
DX: N93.9 Abnormal uterine and vaginal bleeding, unspecified (principal); N88.9 Noninflammatory disorder of cervix uteri, unspecified
CPT/HCPCS: 76830; 76856

== ENCOUNTER → 2023-07-09 | Outpatient (CLI) | payer MEDICARE, SELFPAY ==
--- NOTE | 2023-07-09 11:36 | BI_ITS ---
MAMMOGRAPHY - BILATERAL SCREENING REASON FOR EXAM: Female, 63 years old. Routine annual screening examination. PERTINENT HISTORY: Mother with breast cancer. Remote left breast biopsies. TECHNIQUE: Digital bilateral breast godfrey (3D mammographic acquisition) in the CC and MLO projections. 2-D mediolateral oblique (MLO) and craniocaudad (CC) views of both breasts were obtained. CAD: Full Field Digital Mammography with Computer Added Detection was performed. COMPARISON: Comparison is made with prior study dated April 20, 2021 and December 24, 2018. FINDINGS: Breast Composition: There are scattered areas of fibroglandular density. A tissue clip marker is seen within a 9 mm nodule in the inferior medial aspect of the left breast. A tissue clip marker is also seen in the slightly upper central portion of the left breast at the site of prior microcalcifications. Stable macrocalcifications in the left retroareolar region. No other significant abnormalities are identified. There has been no significant change since the prior study. BI/SCRN MAMM (CAD)W/GODFREY BILAT IMPRESSION: Stable bilateral screening mammogram. Yearly follow-up mammogram recommended. (A) ASSESSMENT CATEGORY: BIRADS Category 2: Benign. A letter regarding these results will be sent to the patient by the facility within 30 days. Approximately 10% of breast cancers are not detected by mammography. A normal mammogram should not delay biopsy of a clinically suspicious abnormality. [id number] Electronically Signed: Dennis Ram MD at 13:24 EDT ,
== END | disposition home or self-care (01) ==
PROVIDERS: PCP Family Medicine; Referring Provider Obstetrics & Gynecology; Visit Provider Obstetrics & Gynecology
DX: Z12.31 Encounter for screening mammogram for malignant neoplasm of breast (principal); Z80.3 Family history of malignant neoplasm of breast
CPT/HCPCS: 77063; 77067

== ENCOUNTER → 2023-09-03 | Outpatient (CLI) | payer MEDICARE, SELFPAY | END | disposition home or self-care (01) | PROVIDERS: PCP Family Medicine; Referring Provider Obstetrics & Gynecology; Visit Provider Obstetrics & Gynecology | DX: R10.2 Pelvic and perineal pain (principal) | CPT/HCPCS: 87086 ==

== ENCOUNTER → 2023-10-06 | Outpatient (CLI) | payer MEDICARE, OTHER, SELFPAY ==
--- NOTE | 2023-10-06 13:27 | RAD_ITS ---
STUDY: X-RAY CHEST REASON FOR EXAM: Female, 63 years old. Cough. TECHNIQUE: Frontal and lateral views of the chest. COMPARISON: Chest CT dated October 02, 2017. FINDINGS: Mild hyperinflation. There is no demonstrated pleural abnormality. Normal size heart. Normal mediastinum and yuliana. Normal visualized pulmonary arteries. Aortic tortuosity. Thoracic osteopenia with mild thoracic spondylosis. Normal visualized ribs, clavicles, and shoulders. No abnormality of the visualized soft tissue structures of the upper abdomen. RAD/Chest PA and Lateral IMPRESSION: Mild hyperinflation with no acute or active cardiopulmonary disease. Electronically Signed: Sherwin Armendariz MD at 13:45 EDT ,
== END | disposition home or self-care (01) ==
LOC: MTRAD 13:27
PROVIDERS: PCP Family Medicine; Referring Provider Family Medicine; Visit Provider Family Medicine
DX: R05.9 Cough, unspecified (principal)
CPT/HCPCS: 71046

== ENCOUNTER → 2023-10-08 | Outpatient (CLI) | payer MEDICARE, OTHER, SELFPAY ==
--- NOTE | 2023-10-08 10:43 | BD_ITS ---
STUDY: DUAL ENERGY X-RAY ABSORPTIOMETRY / DXA REASON FOR EXAM: Female, 63 years old. Z71.89 TECHNIQUE: Bone Mineral Density (BMD) measurements of lumbar spine and bilateral hips were obtained. COMPARISON: Comparison is made with prior study June 17, 2017. FINDINGS: Lumbar Spine (L1-L4): g/cm2 (0.825) / T-score (-2.0) / Z-score (-0.2) Findings are suggestive of osteopenia with a moderate fracture risk. Left Femur Total: g/cm2 (0.841) / T-score (-0.8) / Z-score (0.4) Left Femoral Neck: g/cm2 (0.717) / T-score (-1.2) / Z-score (0.4) Right Femur Total: g/cm2 (0.855) / T-score (-0.7) / Z-score (0.6) Right Femoral Neck: g/cm2 (0.735) / T-score (-1.0) / Z-score (0.5) The T-Scores on the most recent prior examination were: Lumbar Spine (L1-L4): There has been worsening of bone density since the previous examination. Left Femur Total: which represents a worsening of 12.8%. Right Femur Total: which represents a worsening of 9.1%. BD/Dexa Bone Density Study IMPRESSION: The patient is considered osteopenic as outlined below according to World Juan David Organization (WHO) criteria with a moderate fracture risk. There has been worsening of bone density since the previous examination. Reference Information: The T-score is the number of standard deviations above or below the standard which is normal for young adults at their peak bone mineral density. The World Health Organization (WHO) interprets the T-scores as follows: Above -1 Normal bone density Between -1 and -2.5 Osteopenia Equal to / or below -2.5 Osteoporosis As a practical clinical guideline, osteopenia may be graded as follows: Mild -1 through -1.5 Moderate -1.6 through -2.0 Severe -2.1 through -2.4 The Z-score is the number of standard deviations above or below age-matched controls. A Z-score of less than -1.5 would be considered abnormal. References: 1. NIH Osteoporosis and Related Bone Diseases www osteo.org 2. International Society for Clinical Densitometry www iscd.org 3. National Osteoporosis Foundation www nof.org Electronically Signed: Dennis Ram MD at 10:57 EDT ,
== END | disposition home or self-care (01) ==
PROVIDERS: PCP Family Medicine; Referring Provider Family Medicine; Visit Provider Family Medicine
DX: Z71.89 Other specified counseling (principal); M85.88 Other specified disorders of bone density and structure, other site
CPT/HCPCS: 77080

== ENCOUNTER → 2023-12-17 | Outpatient (CLI) | payer MEDICARE, OTHER, SELFPAY | END | disposition home or self-care (01) | LOC: BWCLAB 13:56 → LABSPEC 13:56 | PROVIDERS: PCP Family Medicine; Referring Provider Obstetrics & Gynecology; Visit Provider Obstetrics & Gynecology | DX: N85.01 Benign endometrial hyperplasia (principal) | CPT/HCPCS: 88305 ==

== ENCOUNTER → 2024-01-02 | Outpatient (CLI) | payer MEDICARE, OTHER, SELFPAY ==
--- NOTE | 2024-01-02 14:00 | EMB_PTH ---
PATIENT: FRANKO SARMIENTO LOC: [facility] U#:[id number] AGE/SX: 63/F ROOM: RE01/02/[address]: Dr. Brit Blount DO : 1960 BED: DIS: 01/02/2024 SPEC #: [id number] RECD: 01/02/24 15:55 STATUS: DAVID NATION #: [id number] LUCHO: 01/02/24 14:[address]: Brit Blount DEPT: SURGICAL PATHOLOGY RECD BY: Eleanor Rodriguez ENTERED: 01/05/24 11:02 SP TYPE: ENDOM BX/C KAMINI DR: Joel Gaston MD Tissues: Endometrium, NOS Procedures: Surgery Specimen Level IV HEADER OPERATION: Endometrial biopsy PRE-OP DIAGNOSIS: Simple endometrial hyperplasia without atypia TISSUE SUBMITTED: Endometrial lining MICROSCOPIC DIAGNOSIS Endometrium, biopsy: Rare strips of benign glandular and squamous mucosa. See comment. AM.mr 01/06/2024 COMMENT The specimen primarily consists of mucoid material. Clinical correlation is suggested. MICROSCOPIC DESCRIPTION Slides are reviewed. GROSS DESCRIPTION Received is one container labeled with the patient's name and not further designated. The specimen consists of multiple irregular fragments of mucoid material that in aggregate measure 2.0 x 1.5 x 0.1 cm. The specimen is totally submitted in one cassette. AM. 01/05/2024 TC:5 CPT:91551
== END | disposition home or self-care (01) ==
LOC: LABSPEC 15:16
PROVIDERS: PCP Family Medicine; Referring Provider Obstetrics & Gynecology; Visit Provider Obstetrics & Gynecology
DX: N85.01 Benign endometrial hyperplasia (principal)
CPT/HCPCS: 88305

== ENCOUNTER → 2024-02-06 | Outpatient (CLI) | payer MEDICARE, OTHER, SELFPAY ==
--- NOTE | 2024-02-06 12:16 | US_ITS ---
STUDY: ULTRASOUND OF THE FEMALE PELVIS - COMPLETE REASON FOR EXAM: Female, 64 years old. endometrial hyperplasia TECHNIQUE: Transvaginal and transabdominal imaging. COMPARISON: 07/02/2023 FINDINGS: The uterus is retroflexed and is in a midline position. The uterus measures 6.3 x 4 cm. Normal uterine cervix. The endometrium measures 3.6 mm in thickness, and is hyperechoic. There is no demonstrated endometrial mass. There is fundal calcifications which can represent fibroids. I.U.D. - The patient does not have an I.U.D. There is nonvisualization of the right ovary due to overlying bowel gas. There is nonvisualization of the left ovary due to overlying bowel gas. There is no fluid in the cul-de-sac. Urinary bladder volume is (in cc) 387. US/Pelvic w/ Transvaginal IMPRESSION: No significant endometrial thickening. Uterine fundal calcifications suggesting fibroids. Electronically Signed: Teddy Lopes MD at 21:24 EST Reading Location ID and State: [facility] / [place] , Service support ,
== END | disposition home or self-care (01) ==
LOC: OPUS 12:16
PROVIDERS: PCP Family Medicine; Referring Provider Obstetrics & Gynecology; Visit Provider Obstetrics & Gynecology
DX: N85.01 Benign endometrial hyperplasia (principal)
CPT/HCPCS: 76830; 76856

== ENCOUNTER → 2024-02-27 | Outpatient (CLI) | payer MEDICARE, SELFPAY ==
--- NOTE | 2024-02-27 10:45 | RAD_ITS ---
STUDY: X-RAY - THORACIC SPINE REASON FOR EXAM: Female, 64 years old. Chronic back pain TECHNIQUE: 3 view(s) of the thoracic spine were obtained. COMPARISON: None. FINDINGS: Normal kyphosis of the thoracic spine. There is no substantial scoliosis. Normal thoracic vertebrae and endplates. Mild disc space narrowing throughout the thoracic spine The soft tissue structures are unremarkable. RAD/Thoracic Spine 2 Views IMPRESSION: Mild degenerative changes, no acute findings Electronically Signed: Silvino An MD at 15:21 EST ,
== END | disposition home or self-care (01) ==
LOC: MTRAD 10:45
PROVIDERS: PCP Family Medicine; Referring Provider Family Medicine; Visit Provider Family Medicine
DX: M54.50 Low back pain, unspecified (principal); G89.29 Other chronic pain
CPT/HCPCS: 72070

== ENCOUNTER 2024-04-12 07:50 | Day surgery (SDC) | payer MEDICARE, SELFPAY ==
[2024-04-12] VITALS (7 sets, daily range): BP systolic 100–137; BP diastolic 66–80; PULSE 61–82; RESP 14–16; TEMP 36.1–37.2; O2SAT 97–99; BMI 24.9
--- NOTE | 2024-04-12 08:09 | PRE.ANES_ITS ---
ASA Classification* ASA Classification ASA Classification: 2 Assessment & Plan Anesthesia* Anesthesia Assessment Anesthesia Assessment: Discussed sedation and/or anesthesia options, risks, benefits, and alternatives with patient/parents/legal guardian/POA. Questions invited. The patient/parents/legal guardian/POA seems to understand and agrees to proceed with anesthesia plan. Reviewed the physical assessment, medical history, allergy history and patient home medications list prior to surgery/procedure/anesthetic and documented any changes. Performed airway and anesthesia risk assessments. Anesthesia Type Anesthesia Type: MAC Anesthesia Focused Assessment* Airway Assessment Mouth opens: >3 cm Mallampati Score: II Focused Labs Anesthesia Preop lab: CBC WBC 6.6 K/mm3 (4.4-11.0) 04/25/23 08:06 04/25/23 RBC 4.76 M/mm3 (4.2-5.4) 04/25/23 08:06 04/25/23 Hgb 14.0 g/dL (12.0-15.0) 04/25/23 08:06 04/25/23 Hct 42.1 % (37-47) 04/25/23 08:06 04/25/23 Plt Count 253 K/mm3 (150-450) 04/25/23 08:06 04/25/23 CHEMISTRY Potassium 3.8 mmol/L (3.5-5.1) 04/25/23 08:06 04/25/23 Sodium 141 mmol/L (136-145) 04/25/23 08:06 04/25/23 BUN 11 mg/dL (7-18) 04/25/23 08:06 04/25/23 Creatinine 0.70 mg/dL (0.55-1.02) 04/25/23 08:06 04/25/23 Glucose 155 mg/dL (74-106) H 04/25/23 08:06 04/25/23 POC Glucose 64 mg/dL (74-106) L 01/14/23 13:08 01/14/23 TSH 1.24 uIU/mL (0.358-3.74) 10/01/21 08:24 COAG Pre-Assessment Diagnosis/Proposed Procedure Planned Operative Procedure(s): CSCOPE Anesthesia History 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 When Was Last Pacemaker Check QUESTION #4 FULL TEXT: You/Your Family Experience fever (hyperthermia) with Anesthesia Last Oral Intake Last Oral intake: Last Oral Intake NPO since Meds taken in AM with sips of water? Meds patient instructed to take am of surgery PONV PONV - middleware solutions architect: PONV - middleware solutions architect Female Yes 04/07/24 14:43 HX of Motion Sickness No 04/07/24 14:43 HX of N/V After Surgery No 04/07/24 14:43 Non-Smoker Yes 04/07/24 14:43 Duration of Surgery greater No 04/07/24 14:43 than 60 minutes Number of Risk Factors 2 04/07/24 14:43 PONV Score Moderate Risk 04/07/24 14:43 Height & Weight Height & Weight: Anesthesia: Height & Weight Height 5 ft 7 in 03/19/24 09:36 Respiratory Assessment Respiratory Assessment - middleware solutions architect: Respiratory Tract Infection Hx - middleware solutions architect Hx Respiratory Tract Infection Yes: BRONCHITIS 02/25/24 04/07/24 14:43 STOP Sleep Apnea STOP Sleep Apnea - middleware solutions architect: STOP Sleep Apnea - middleware solutions architect Hx Hypertension No 04/07/24 14:43 Hx Sleep Apnea No 04/07/24 14:43 CPAP BIPAP Do you snore loudly (louder No 04/07/24 14:43 than talking or can be heard Do you often feel tired/ No 04/07/24 14:43 fatigued/ sleepy during daytime? Has anyone observed you stop No 04/07/24 14:43 breathing during sleep? STOP Results Negative 04/07/24 14:43 QUESTION #5 FULL TEXT : Do you snore loudly (louder than talking or can be heard through closed doors)? 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 Specify any problems Hx of Preganancy in last 3 N/A 04/07/24 14:43 Months Nurse Filling Out Transfusion NBUCHER 04/07/24 14:43 & Questions: Date: 04/07/24 04/07/24 14:43 Time: 14:44 04/07/24 14:43 Patient unable to answer at this time (ie. confused, unrespo /Reproduction History /Reproductive History - middleware solutions architect: /Reproductive Hx- middleware solutions architect Hx Now No 04/07/24 14:43 Gestational Age (in weeks): EDC: Hx Hx Para Hx Section SAB No 04/07/24 14:43 PFSH Medical History Hx of colonic polyps Simple endometrial hyperplasia without atypia Wears dentures Wears glasses Back pain Dietary restriction History of IBS Gastric reflux Chronic cough History of stress test Bee sting Carpal tunnel syndrome of right wrist Depression Thyroid nodule Abnormal ultrasound of breast Acid reflux Asthma Diabetes Home Medications ?Medication ?Instructions ?Recorded ?Last Taken ?Type lancets 21 gauge #100 ea 03/30/21 Unknown Rx blood sugar diagnostic (Blood #100 ea 04/02/21 Unknown Rx Glucose Test strips) blood-glucose meter #1 ea 04/02/21 Unknown Rx cholecalciferol (vitamin D3) 50 50 mcg PO DAILY Unknown History mcg (2,000 unit) capsule glimepiride 2 mg tablet 2 mg PO QAM #90 tabs 3 Unknown Rx metformin 500 mg tablet 500 mg PO DAILY #90 tabs 06/03 Unknown Rx calcium carbonate 500 mg PO QDAY 02/27/24 Unkn own History cyclobenzaprine 5 mg tablet 5 mg PO TID PRN muscle spa sm #30 03/19/24 Unknown Rx tabs Allergy/AdvReac Type Severity Reaction Status Date / Time nitrofurantoin (From Allergy Urticaria Verified 04/07/24 14:42 Macrobid) Penicillins Allergy PT UNSURE Verified 04/07/24 14:42 OF REACTION Sulfa (Sulfonamide Allergy HIGH BP Verified 04/07/24 14:42 Antibiotics) Family History Mother Breast cancer Arthritis Father Cancer Brain Surgical History History of hysteroscopy History of colonoscopy with polypectomy S/P D&C (status post dilation and curettage) Hx of appendectomy History of laparoscopic cholecystectomy Social History household members: spouse current occupational status: retired Smoking Status: Never smoker alcohol intake: never substance use type: does not use caffeine: Yes what type of physical activity do you participate in: none seatbelt use: always do you feel safe at home: Yes additional social history: - Jose Review of Systems (Anesthesia) ROS Narrative System reviewed and no additional complaints, except as documented.
--- NOTE | 2024-04-12 08:33 | HP.PCM_ITS ---
[facility] - General General Date of Service: 04/12/24 HPI Narrative FRANKO SARMIENTO, is a 64 F who presents for screening colonoscopy. Patient denies any family history of colon cancer. Patient last colonoscopy was 5 years ago and Jose Elias had polyps at that time. Patient has bowel movements daily denies any blood. Patient denies any chronic abdominal pain/nausea/vomiting/reflux. [facility] Medical History Hx of colonic polyps Simple endometrial hyperplasia without atypia Wears dentures Wears glasses Back pain Dietary restriction History of IBS Gastric reflux Chronic cough History of stress test Bee sting Carpal tunnel syndrome of right wrist Depression Thyroid nodule Abnormal ultrasound of breast Acid reflux Asthma Diabetes Home Medications ?Medication ?Instructions ?Recorded ?Last Taken ?Type lancets 21 gauge #100 ea 03/30/21 Unknown Rx blood sugar diagnostic (Blood #100 ea 04/02/21 Unknown Rx Glucose Test strips) blood-glucose meter #1 ea 04/02/21 Unknown Rx cholecalciferol (vitamin D3) 50 50 mcg PO DAILY Unknown History mcg (2,000 unit) capsule glimepiride 2 mg tablet 2 mg PO QAM #90 tabs 3 Unknown Rx metformin 500 mg tablet 500 mg PO DAILY #90 tabs 06/03 Unknown Rx calcium carbonate 500 mg PO QDAY 02/27/24 Unkn own History cyclobenzaprine 5 mg tablet 5 mg PO TID PRN muscle spa sm #30 03/19/24 Unknown Rx tabs Allergy/AdvReac Type Severity Reaction Status Date / Time nitrofurantoin (From Allergy Urticaria Verified 04/07/24 14:42 Macrobid) Penicillins Allergy PT UNSURE Verified 04/07/24 14:42 OF REACTION Sulfa (Sulfonamide Allergy HIGH BP Verified 04/07/24 14:42 Antibiotics) Family History Mother Breast cancer Arthritis Father Cancer Brain Surgical History History of hysteroscopy History of colonoscopy with polypectomy S/P D&C (status post dilation and curettage) Hx of appendectomy History of laparoscopic cholecystectomy Social History household members: spouse current occupational status: retired Smoking Status: Never smoker alcohol intake: never substance use type: does not use caffeine: Yes what type of physical activity do you participate in: none seatbelt use: always do you feel safe at home: Yes additional social history: - Jose Past Medical/Surgical History Planned Operation Planned Operative Procedure(s): CSCOPE Previous Hospitalizations/Surgeries HX Hospitalizations: No Any Problems With Anesthesia: No You/Your Family Experience Fever (Hyperthermia) With Anes: No Cholinesterase deficiency: No Cardiovascular Hx Heart Attack: No Hx Hypertension: No Respiratory Hx Chronic Obstructive Pulmonary Disease (COPD): No Hx Asthma: No Hx Emphysema: No Hx Sleep Apnea: No Hx Respiratory Tract Infection/Cold (presently): Yes (BRONCHITIS 02/25/24) Do You Snore Loudly (louder than talking or can be heard): No Do You Often Feel Tired/ Fatigued/ Sleepy Dring Daytime?: No Has Anyone Observed You Stop Breathing During Sleep?: No Result (for STOP score): Negative Smoking Status: Never smoker Gastrointestinal Special diet followed at home: No Neurological Hx Seizures: No Does patient have nerve stimulator: No Reproduction : No Genitourinary Hx Renal Disease: No Endocrine Hx Diabetes: No (Newly diagnosed) Miscellaneous Recent Exposure to Contagious Disease: No Allergies nitrofurantoin (From Macrobid) Allergy (Verified 04/07/24 14:42) Urticaria Penicillins Allergy (Verified 04/07/24 14:42) PT UNSURE OF REACTION Sulfa (Sulfonamide Antibiotics) Allergy (Verified 04/07/24 14:42) HIGH BP Discharge Is Pt Admitted From a Fpc, or a Snf: No After D/C, Where Do you Plan to Go: Return Home Physical Exam Const alert, oriented x3 and no apparent distress HEENT normocephalic and head/scalp atraumatic Resp normal respiratory effort Cardio regular rate GI soft to palpation and non-tender; Negative for non-distended Palpation: Negative for guarding Extremity no clubbing, cyanosis or edema Skin no rashes or lesions noted Neuro CN's II-XII intact bilaterally Psych mental status grossly normal Assessment & Plan Assessment/Plan (1) Encounter for screening for malignant neoplasm of colon: Surgery Risks - Colonoscopy I discussed with the patient the risks of the procedure: Yes Risks Include but are not Limited To: Risks include but are not limited to: Bleeding, perforation requiring further surgery, inability to complete colonoscopy requiring barium enema.
[2024-04-12 09:06] LABS: Bedside Glucose 132 mg/dL (74-106)
--- NOTE | 2024-04-12 09:15 | COLBX_PTH ---
PATIENT: FRANKO SARMIENTO LOC: EN U#:[id number] AGE/SX: 64/F ROOM: RE04/12/[address]: Dr. Ashley Rodriguez MD : 1960 BED: DIS: 04/12/2024 SPEC #: [id number] RECD: 04/12/24 11:21 STATUS: [place] #: [id number] LUCHO: 04/12/24 09:[address]: Ashley Rodriguez DEPT: SURGICAL PATHOLOGY RECD BY: Amanda Smith ENTERED: 04/12/24 11:50 SP TYPE: COLON BX OTHR DR: Joel Gaston MD Tissues: A - Cecum, NOS B - Sigmoid colon biopsy C - Rectum, NOS Procedures: Surgery Specimen Level IV HEADER OPERATION: Colonoscopy with biopsy PRE-OP DIAGNOSIS: Encounter for screening for malignant neoplasm of colon TISSUE SUBMITTED: A- Cecal polyp biopsy, B- Sigmoid colon polyp biopsy, C- Rectal polyp biopsy MICROSCOPIC DIAGNOSIS A. Colon, cecum, polyp, biopsy: * Sessile serrated lesion. B. Colon, sigmoid, polyp, biopsy: * Hyperplastic polyp. C. Rectum, polyp, biopsy: * Hyperplastic polyp. MICROSCOPIC DESCRIPTION Slides are reviewed. GROSS DESCRIPTION A. Received in fixative is one container labeled with the patient's name and designated Cecal polyp biopsy. The specimen consists of multiple irregular fragments of light castanon soft tissue that in aggregate measure 1.5 x 0.2 x 0.2 cm. The specimen is totally submitted in one cassette. B. Received in fixative is one container labeled with the patient's name and designated Sigmoid colon polyp biopsy. The specimen consists of multiple irregular fragments of light castanon soft tissue that in aggregate measure 1.8 x 0.3 x 0.2 cm. The specimen is totally submitted in one cassette. C. Received in fixative is one container labeled with the patient's name and designated Rectal polyp biopsy. The specimen consists of multiple irregular fragments of light castanon soft tissue that in aggregate measure 1 x 0.2 x 0.2 cm. The specimen is totally submitted in one cassette. 04/12/2024 TC: CPT:40068i4
--- NOTE | 2024-04-12 09:49 | OP.CCLET_ITS ---
04/12/2024 Joel Gaston Md Re : Colonoscopy procedure for Hubert Jara Dear Alek This procedure was performed on Friday, April 12, 2024. My impressions and recommendations are as follows: Impressions : - Five 3 to 5 mm polyps in the rectum, in the sigmoid colon and in the cecum, removed with a cold biopsy forceps. Resected and retrieved. - The examination was otherwise normal on direct and retroflexion views. Recommendations : - Discharge patient to home. - Resume previous diet. - Continue present medications. - Await pathology results. - Repeat colonoscopy in 3 - 5 years for surveillance based on pathology results. My findings are described in the full procedure note, which is enclosed. If I can be of further assistance, please feel free to contact me at Doctor phone number(s): , Work: . Sincerely, MD Ashley Alvares MD 04/12/2024 9:48:50 AM This report has been signed electronically.
--- NOTE | 2024-04-12 09:49 | OP.COLON_ITS ---
Patient Name: Hubert Jara Procedure Date: 04/12/2024 9:03 AM Date of : 1960 Age: 64 Procedure: Colonoscopy Indications: High risk colon cancer surveillance: Personal history of colonic polyps Providers: Ashley Rodriguez MD Referring MD: Joel Gaston Md Medicines: Monitored Anesthesia Care Patient Profile: This is a 64 year old female. Last Colonoscopy: 5 years ago. Complications: No immediate complications. Procedure: Pre-Anesthesia Assessment: - Prior to the procedure, a History and Physical was performed, and patient medications and allergies were reviewed. The patient's tolerance of previous anesthesia was also reviewed. The risks and benefits of the procedure and the sedation options and risks were discussed with the patient. All questions were answered, and informed consent was obtained. Prior Anticoagulants: The patient has taken no anticoagulant or antiplatelet agents. ASA Grade Assessment: Per anesthesia. After reviewing the risks and benefits, the patient was deemed in satisfactory condition to undergo the procedure. After I obtained informed consent, the scope was passed under direct vision. Throughout the procedure, the patient's blood pressure, pulse, and oxygen saturations were monitored continuously. The colonoscope was introduced through the anus and advanced to the cecum, identified by the appendiceal orifice, ileocecal valve and palpation. The colonoscopy was performed without difficulty. The patient tolerated the procedure well. The quality of the bowel preparation was good. Scope In: 9:12:38 AM Scope Withdrawal Time 0 hours 23 minutes 10 seconds Scope Out: 9:42:25 AM Total Procedure Duration Time 0 hours 29 minutes 47 seconds Findings: The perianal and digital rectal examinations were normal. Five sessile polyps were found in the rectum, sigmoid colon and cecum. The polyps were 3 to 5 mm in size. These polyps were removed with a cold biopsy forceps. Resection and retrieval were complete. The exam was otherwise without abnormality on direct and retroflexion views. Impression: - Five 3 to 5 mm polyps in the rectum, in the sigmoid colon and in the cecum, removed with a cold biopsy forceps. Resected and retrieved. - The examination was otherwise normal on direct and retroflexion views. Recommendation: - Discharge patient to home. - Resume previous diet. - Continue present medications. - Await pathology results. - Repeat colonoscopy in 3 - 5 years for surveillance based on pathology results. Procedure Code(s): --- Professional --- 40818, PT, Colonoscopy, flexible; with biopsy, single or multiple Diagnosis Code(s): --- Professional --- Z86.010, Personal history of colonic polyps D12.8, Benign neoplasm of rectum D12.5, Benign neoplasm of sigmoid colon D12.0, Benign neoplasm of cecum CPT copyright 2021 [employer]. All rights reserved. The codes documented in this report are preliminary and upon senior search marketing analyst review may be revised to meet current compliance requirements. MD Ashley Alvares MD 04/12/2024 9:48:50 AM This report has been signed electronically. Number of Addenda: 0 Note Initiated On: 04/12/2024 9:03 AM
--- NOTE | 2024-04-12 09:51 | PCM.POST.ANE ---
Anesthesia: Postop Eval I Current Vital Signs Temperature: 97 F Pulse Rate: 66 Blood Pressure: 100/78 Respiratory Rate: 16 Pulse Ox: 98 Oxygen Delivery Method: Room Air Assessment Airway patent: Yes Spontaneous unlabored respirations: Yes Mental status: Awake and Calm nausea: No Vomiting: No Anesthesia Complication: No Fluid Hydration Crystalloid volume administer (ml): 60 Total IV fluid infused: 60 Progress Note Anesthesia document: Postop Eval 1 completed: Yes
--- NOTE | 2024-04-12 10:38 | PCM.POSTANE2 ---
Anesthesia Postop Eval I Sum Postop Eval Completion status Anesthesia document: Postop Eval 1 completed: Yes Anesthesia Postop Eval I Summary Anesthesia Postop Eval I Summary: Anesthesia Postop Eval I: Assessment Summary Airway patent Yes 04/12/24 09:52 [email or web address] Spontaneous unlabored Yes 04/12/24 09:52 [email or web address] respirations Mental status Awake,Calm 04/12/24 09:52 [email or web address] nausea No 04/12/24 09:52 [email or web address] Vomiting No 04/12/24 09:52 [email or web address] Anesthesia Postop Eval I: Fluid Summary Crystalloid volume administer 60 04/12/24 09:52 [email or web address] (ml) Colloids volume administered ( ml) Blood Product volume administered (ml) Total IV fluid infused 60 04/12/24 09:52 [email or web address] Anesthesia Postop Eval I: Summary Notes Anesthesia Complication No 04/12/24 09:52 [email or web address] Anesthesia Complication Comment: Post-operative progress note Anesthesia: Postop Eval II Evaluation Mental status: Awake Pain Level: 0 nausea: No Vomiting: No
== END 2024-04-12 10:32 | disposition home or self-care (01) ==
PROVIDERS: PCP Family Medicine; Referring Provider Family Medicine; Visit Provider Surgery
PROC: 0DJD8ZZ Inspection of Lower Intestinal Tract, Via Natural or Artificial Opening Endoscopic (ICD-10-PCS; CPT 45378; principal; 2024-04-12 09:10)
DX: Z12.11 Encounter for screening for malignant neoplasm of colon (principal); E11.9 Type 2 diabetes mellitus without complications; D12.0 Benign neoplasm of cecum; K21.9 Gastro-esophageal reflux disease without esophagitis; K62.1 Rectal polyp; K63.5 Polyp of colon; Z86.0100 Personal history of colon polyps, unspecified; Z87.19 Personal history of other diseases of the digestive system
CPT/HCPCS: 45380; 82962; 88305; A4216; J2405

== ENCOUNTER → 2024-05-22 | Outpatient (CLI) | payer MEDICARE, SELFPAY ==
--- NOTE | 2024-05-22 09:15 | MRI_ITS ---
PROCEDURE: MRI SPINE THORACIC (ROUTINE) 05/22/2024 REASON FOR EXAM: THORACIC RADICULOPATHY TECHNIQUE: Noncontrast thoracic spine MRI. Coronal and Sagittal reconstruction series were provided. COMPARISON: None FINDINGS: Vertebral body heights are preserved. Negative for fracture or suspicious marrow replacement. Multilevel vertebral body hemangiomas. Alignment is preserved. Spinal cord is of normal caliber, contour and signal intensity. No focal disc abnormality, spinal stenosis or foraminal narrowing. No paraspinal mass. MRI/Spine Thoracic (Routine) IMPRESSION: 1. No focal disc abnormality, spinal stenosis or significant foraminal narrowin g. 2. Multilevel vertebral body hemangiomas. Reading Location: [facility]
== END | disposition home or self-care (01) ==
PROVIDERS: PCP Family Medicine; Referring Provider Student in an Organized Health Care Education/Training Program; Visit Provider Student in an Organized Health Care Education/Training Program
DX: M54.14 Radiculopathy, thoracic region (principal)
CPT/HCPCS: 72146

== ENCOUNTER → 2024-07-29 | Outpatient (CLI) | payer MEDICARE, SELFPAY ==
--- NOTE | 2024-07-29 08:01 | US_ITS ---
PROCEDURE: PELVIC W/ TRANSVAGINAL REASON FOR EXAM: PELVIC PAIN Patient is postmenopausal. TECHNIQUE: PELVIC W/ TRANSVAGINAL COMPARISON: Prior study dated February 06, 2024. FINDINGS: Measurements: Uterus: 6.2 cm x 4.4 cm x 3.1 cm with a volume of 43.07 mL Endometrial Thickness: 5 mm. This is thickened for the post menopausal state. Heterogeneous appearance with focal calcifications. Right Ovary: Not visualized Left Ovary: Not visualized TRANSABDOMINAL: Uterus: Heterogeneous myometrium suggestive of fibroid change although no focal fibroid is seen. Endometrium: Endometrium measures 5 mm. This is thickened for patient's postmenopausal state. Clinical correlation recommended. Right ovary: Not visualized. Left ovary: Not visualized. Other: No large pelvic mass identified. Transvaginal sonography was performed to better visualize the endometrium. TRANSVAGINAL: Uterus: Retroverted. Endometrium: Thickened endometrium as described. Right ovary: Not visualized. Left ovary: Not visualized. Other adnexal findings: None. Cul-de-sac: No free intraperitoneal fluid identified. Tenderness: No tenderness US/Pelvic w/ Transvaginal IMPRESSION: Endometrial thickening. Further clinical correlation recommended. Fibroid changes of the uterus. Reading Location: [place] [id number]
--- NOTE | 2024-07-29 08:01 | BI_ITS ---
EXAM: DIAG MAMM W/CAD, BILAT 07/29/2024 CLINICAL HISTORY: F, Age 64 y/o, left breast pain. TECHNIQUE: Bilateral Diagnostic digital breast tomosynthesis with 2D and 3D images. Computer aided detection. COMPARISON: Prior exam(s) dated July 09, 2023. FINDINGS: TISSUE DENSITY: The breast tissue is composed of scattered areas of fibroglandular density. Bilateral Breast Mammographic Findings: No significant masses, calcifications or other abnormalities are identified. Once again, a tissue clip marker is seen within a 9 mm well-defined nodule in the inferior medial aspect of the left breast. A tissue clip marker is also seen in the slightly upper medial aspect of the left breast from prior biopsies. Stable examination. With the patient's history of left breast pain, targeted sonographic correlation recommended. BI/DIAG MAMM W/CAD, BILAT IMPRESSION: Stable examination. OVERALL FINAL ASSESSMENT BI-RADS 0: INCOMPLETE - NEED ADDITIONAL IMAGING EVALUATION. RECOMMENDATION: Ultrasound Recommended A letter with findings and recommendations will be mailed to the patient. Reading Location: [place] [address]
--- NOTE | 2024-07-29 08:01 | US_ITS ---
PROCEDURE: BREAST LIMITED UNILATERAL 07/29/2024 REASON FOR EXAM: BREAST PAIN Breast pain at the level of the prior biopsy site. TECHNIQUE: BREAST LIMITED UNILATERAL COMPARISON: Prior mammogram done earlier in the day.. FINDINGS: Left breast ultrasound was targeted to the lateral aspect of the left breast.. The breast tissue appears sonographically normal. No cyst, solid mass, or suspicious shadowing. US/Breast Limited Unilateral IMPRESSION: Impression: No sonographic abnormality is seen. Birads: BI-RADS 1: NEGATIVE. RECOMMEND ANNUAL MAMMOGRAPHIC SCREENING. Reading Location: [place] [address]
--- OUTSIDE RECORDS SUMMARY | 2024-07-29 08:07 | XMS RPT_ITS | CCD ---
Author Organization [facility] Care Team Providers Care Filters Assembler Name Role Phone Dr. Armando Gómez Primary Care Provider Dr. Armando Gómez Referring Provider Dr. Belle Miguel Attending Provider [phone] Cordelia Wu Attending Provider Unavailable Dr. Ashley Rodriguez Attending Provider Dr. Belle Miguel Primary Care Provider Dr. Belle Miguel Referring Provider [phone] Dr. Ashley Rodriguez Referring Provider Dr. Ashley Rodriguez Other Provider Dr. Belle Miguel Primary Care Provider Dr. Belle Miguel Referring Provider [phone] ELIZABETH Alexis Attending Provider Dr. Armando Gómez Referring Provider Dr. Brit Blount Attending Provider [phone] ELIZABETH Rouse Attending Provider UnavailHi Nixon Attending Provider Unavailable Dr. Armando Gómez Referring Provider Dr. Belle Miguel Primary Care Provider Dr. Brit Blount Attending Provider [phone] ELIZABETH Rouse Attending Provider UnavailHi Nixon Attending Provider Unavailable Dr. Belle Miguel Attending Provider [phone] Dr. Belle Miguel Primary Care Provider Dr. Belle Miguel Primary Care Provider Dr. Belle Miguel Referring Provider [phone] Ja STILL OPERATOR WHISKEY, STILL OPERATOR WHISKEY-C Arlet Attending Provider [phone] Dr. Belle Miguel Primary Care Provider Dr. Belle Miguel Referring Provider Dr. Belle Miguel Primary Care Provider Dr. Belle Miguel Referring Provider Ja STILL OPERATOR WHISKEY, STILL OPERATOR WHISKEY-C Arlet Attending Provider [phone] Dr. Candice Ravi Attending Provider [phone] Dr. Belle Miguel Primary Care Provider Dr. Belle Miguel Referring Provider [phone] Candice Ravi Attending Provider [phone] Dr. Pramod Small Attending Provider [phone] Candice Ravi Referring Provider [phone] Dr. Candice Ravi Other Provider [phone] Belle Miguel Primary Care Provider Dr. Pramod Small Attending Provider [phone] Dr. Candice Ravi Referring Provider [phone] Dr. Candice Ravi Attending Provider [phone] Dr. Candice Ravi Other Provider [phone] Dr. Belle Miguel Referring Provider ELIZABETH Wylie Attending Provider Joel Gaston MD Primary Care Provider Dr. Brit Blount DO Attending Provider Dr. Brit Blount DO Referring Provider Joel Gaston MD Referring Provider Riley Alexis Attending Provider Joel Gaston MD Attending Provider Joelle Madden Attending Provider Unavailable Cris Galvez Attending Provider Michael CALHOUN, Dr. Ramirez Attending Provider [phone] Michael CALHOUN, Dr. Ramirez Other Provider [phone] Cris Galvez Referring Provider Alek CALHOUN, Chalon Primary Care Provider [phone] Alek CALHOUN, Joel Referring Provider Mumtaz STILL OPERATOR WHISKEY-C, Lydia Attending Provider Alek, Chalon Referring Unavailable Alek, Chalon Primary Care Unavailable Cris Angela Attending Unavailable Alek, Chalon Primary Care Unavailable Alek, Chalon Referring Unavailable Riley Alexis Attending Unavailable Alek, Chalon Primary Care Unavailable Joelle Madden Attending Unavailable RobotAshley mahmood Attending Unavailable Alek, Chalon Primary Care Unavailable Alek, Chalon Referring Unavailable Alek, Chalon Primary Care Unavailable Marcanthony, Candice Referring Unavailable Marcanthony, Candice Attending Unavailable Alek, Chalon Referring Unavailable Alek, Chalon Primary Care Unavailable Alek, Chalon Attending Unavailable Alek, Chalon Referring Unavailable Aelk, Chalon Primary Care Unavailable Alek, Chalon Attending Unavailable Himanshu Cason Attending Unavailable Alek, Chalon Primary Care Unavailable Alek, Chalon Primary Care Unavailable Vande Velde, Brit Referring Unavailabl e Vande Velde, Brit Attending Unavailabl e Alek, Chalon Primary Care Unavailable Marcanthony, Candice Attending Unavailable Marcanthony, Candice Referring Unavailable Alek, Chalon Referring Unavailable Alek, Chalon Primary Care Unavailable Marcanthony, Candice Attending Unavailable Alek, Chalon Referring Unavailable Alek, Chalon Primary Care Unavailable Vande Velde, Brit Attending Unavailabl e Alek, Chalon Referring Unavailable Marcanthony, Candice Attending Unavailable Alek, Chalon Primary Care Unavailable Joelle Madden Attending Unavailable Alek, Chalon Primary Care Unavailable Ashley Rodriguez Attending Unavailable Ashley Rodriguez Consulting Unavailable Alek, Chalon Referring Unavailable Alek, Chalon Primary Care Unavailable Alek, Chalon Referring Unavailable Alek, Chalon Primary Care Unavailable Cris Angela Attending Unavailable Alek, Chalon Primary Care Unavailable Vande Brit Dorsey Referring Unavailabl e Vande Velankur, Brit Attending Unavailabl e Alek, Chalon Primary Care Unavailable Julio CésarBrianyn Referring Unavailable Julio CésarCris Attending Unavailable Barkman, Lydia Referring Unavailable Barkman, Lydia Attending Unavailable Alek, Chalon Primary Care Unavailable Barkman, Lydia Referring Unavailable Barkman, Lydia Attending Unavailable Alek, Chalon Primary Care Unavailable Alek, Chalon Primary Care Unavailable Alek, Chalon Referring Unavailable Alek, Chalon Attending Unavailable Alek, Chalon Referring Unavailable Barkman, Lydia Attending Unavailable Alek, Chalon Primary Care Unavailable Allergies Allergy Classification Reported Allergen(s) Allergy Type Date of Onset Reaction(s) Facility (15 sources) Penicillins; Translations: [Penicillins] Allergy to substance 2 Other, PT UNSURE OF REACTION [facility] (15 sources) Sulfonamides (Antibiotic); Translations: [Sulfa (Sulfonamide Antibiotics)] Allergy to substance 2 Other, HIGH BP [facility] (2 sources) Nitrofurantoin Drug Allergy 5 Urticaria [facility] (1 source) Nitrofurantoin Drug Allergy 5 [facility] Repository Medications Current Medications Medication Drug Class(es) Dates Sig (Normalized) Sig (Original) Blood-Glucose Meter (20 sources) Start: 04-02-2021 Blood-Glucose Meter Active 0 .ROUTE .MEDSUPPLY April 02, 2021 8:07am As directed Start: 04-02-2021 Blood-Glucose Meter Active 0 .ROUTE .MEDSUPPLY April 02, 2021 9:07am As directed Start: 03-30-2021 End: 04-02-2021 Blood-Glucose Meter Disconti nued 0 .ROUTE .MEDSUPPLY 1 March 30, 2021 1:05pm April 02, 2021 8:08am As directed Start: 03-30-2021 End: 04-02-2021 Blood-Glucose Meter Disconti nued 0 .ROUTE .MEDSUPPLY March 30, 2021 2:05pm April 02, 2021 9:08am As directed Start: 03-28-2021 End: 03-30-2021 Blood-Glucose Meter Disconti nued 0 .ROUTE .MEDSUPPLY 1 March 28, 2021 11:52am March 30, 2021 2:06pm As directed Start: 03-28-2021 End: 03-30-2021 Blood-Glucose Meter Disconti nued 0 .ROUTE .MEDSUPPLY 1 March 28, 2021 12:00am March 30, 2021 1:06pm As directed Start: 03-28-2021 End: 03-30-2021 Blood-Glucose Meter Disconti nued 0 .ROUTE .MEDSUPPLY 1 March 28, 2021 1:00am March 30, 2021 2:06pm As directed Blood-Glucose Meter misc (6 sources) Start: 04-02-2021 Blood-Glucose Meter misc Active 0 .ROUTE .MEDSUPPLY 1 April 02, 2021 9:07am As directed Start: 03-30-2021 End: 04-02-2021 Blood-Glucose Meter misc Dis continued 0 .ROUTE .MEDSUPPLY 1 March 30, 2021 2:05pm April 02, 2021 9:08am As directed Start: 03-28-2021 End: 03-30-2021 Blood-Glucose Meter misc Dis continued 0 .ROUTE .MEDSUPPLY 1 March 28, 2021 1:00am March 30, 2021 2:06pm As directed calcium carbonate 1250 mg oral tablet (2 sources) Start: 02-27-2024 take 1 tablet by mouth once daily Calcium Carbonate 500 mg calcium (1,250 mg) tablet Active 500 mg PO daily February 27, 2024 1:00am cholecalciferol 0.05 mg oral capsule (13 sources) Vitamin D Start: 10-03-2021 take 1 capsule by mouth once daily Cholecalciferol (Vitamin D3) 50 mcg (2,000 unit) capsule Active 50 ug PO DAILY October 03, 2021 12:00am cyclobenzaprine hydrochloride 5 mg oral tablet (2 sources) Muscle Relaxant Start: 03-19-2024 take 1 tablet by mouth three times daily as needed for muscle spasms Cyclobenzaprine 5 mg tablet Active 5 mg PO THREE TIMES A DAY as needed for muscle spasm 30 March 19, 2024 1:00am glimepiride 2 mg oral tablet (20 sources) Sulfonylurea Start: 04-19-2021 End: 09-23-2022 take 1 tablet by mouth once daily in the morning Glimepiride 2 mg tablet Active 2 mg PO EVERY MORNING September 23, 2022 12:27pm Start: 04-19-2021 End: 04-19-2021 take 2 tablets by mouth once daily in the morning Glimepiride 1 mg tablet Discontinued 2 mg PO EVERY MORNING April 19, 2021 8:32am April 19, 2021 9:05am Start: 04-19-2021 End: 04-19-2021 take 2 mg by mouth once daily in the morning Glimepiride Discontinued 2 MG PO EVERY MORNING April 19, 2021 8:32am April 19, 2021 9:05am Start: 06-24-2017 End: 04-19-2021 take 1 tablet by mouth once daily in the morning Glimepiride 1 mg tablet Discontinued 1 mg PO EVERY MORNING June 24, 2017 12:00am April 19, 2021 8:32am metFORMIN hydrochloride 500 mg oral tablet (20 sources) Biguanide Start: 02-13-2023 End: 02-13-2023 take 1 tablet by mouth once daily Metformin 500 mg tablet Active 500 mg PO DAILY February 13, 2023 5:40pm Start: 03-28-2021 End: 02-13-2023 take 1 tablet by mouth once daily Metformin 500 mg tablet,ER rickey.retention 24 hr Discontinued 500 mg PO DAILY February 12, 2023 1:10pm February 13, 2023 11:38am Start: 05-19-2014 End: 06-24-2017 take 1 tablet by mouth twice daily at mealtime Metformin 500 MG tablet Discontinued 500 mg PO TWICE DAILY WITH MEALS May 19, 2014 12:00am June 24, 2017 1:42pm Vitamin B Complex (2 sources) Start: 01-01-2023 take 1 capsule by mo ut once daily Vitamin B Complex Active 1 CAP PO DAILY January 01, 2023 1:00am Start: 01-01-2023 take 1 capsule by mo uth once daily Vitamin B Complex Active 1 CAP PO DAILY January 01, 2023 12:00am Completed/Discontinued Medications Medication Drug Class(es) Dates Sig (Normalized) Sig (Original) [id number] 200 actuat albuterol 0.09 mg/actuat metered dose inhaler (14 sources) beta2-Adrenergic Agonist Start: 06-24-2017 End: 03-28-2021 Albuterol Sulfate (Proair Hfa) 90 mcg/actuation HFA aerosol inhaler Discontinued 2 NMA INHALATION Q4H as needed June 24, 2017 12:00am March 28, 2021 10:08am Start: 06-24-2017 End: 03-28-2021 take 1 puff(s) by inhalation every four hours Albuterol Sulfate (Proair Hfa) 90 mcg/actuation HFA aerosol inhaler Discontinued 2 PUFF INHALATION Q4H June 24, 2017 12:00am March 28, 2021 10:08am benzonatate 200 mg oral capsule (5 sources) Non-narcotic Antitussive Start: 02-18-2024 End: 03-19-2024 take 1 capsule by mouth three times daily as needed for cough Benzonatate 200 mg capsule Discontinued 200 mg PO THREE TIMES A DAY as needed for cough February 18, 2024 1:00am March 19, 2024 10:41am Start: 01-31-2023 End: 02-27-2024 take 2 capsules by mouth three times daily as needed for cough Benzonatate 100 mg capsule Discontinued 200 mg PO THREE TIMES A DAY as needed for cough January 31, 2023 1:00am February 27, 2024 3:18pm Start: 01-31-2023 take 200 mg by mouth three times daily Benzonatate Active 200 MG PO THREE TIMES A DAY January 31, 2023 1:00am cephalexin 500 mg oral capsule (17 sources) Cephalosporin Antibacterial Start: 01-31-2023 End: 02-10-2023 take 1 capsule by mouth every twelve hours Cephalexin 500 mg capsule Discontinued 500 mg PO Q12H 29 11January 31, 2023 1:00am February 09, 2023 1:00am February 10, 2023 1:04am Start: 06-06-2020 End: 06-16-2020 take 1 capsule by mouth every twelve hours Cephalexin 500 mg capsule Discontinued 500 mg PO Q12H 29 11June 06, 2020 12:00am June 15, 2020 12:00am June 16, 2020 12:01am ciprofloxacin 500 mg oral tablet (20 sources) Quinolone Antimicrobial Start: 01-17-2021 End: 03-28-2021 take 1 tablet by mouth twice daily Ciprofloxacin Hcl 500 mg tablet Discontinued 500 mg PO TWICE A DAY January 18, 2021 1:00am March 28, 2021 10:07am Start: 05-19-2014 End: 06-24-2017 take 1 tablet by mouth twice daily Ciprofloxacin Hcl 250 MG tablet Discontinued 250 mg PO TWICE A DAY May 19, 2014 12:00am June 24, 2017 1:42pm doxycycline monohydrate 100 mg oral capsule (2 sources) Tetracycline-class Drug Start: 02-18-2024 End: 03-19-2024 take 1 capsule by mouth twice daily Doxycycline Monohydrate 100 mg capsule Discontinued 100 mg PO TWICE A DAY February 18, 2024 1:00am March 19, 2024 10:41am escitalopram 20 mg oral tablet (2 sources) Serotonin Reuptake Inhibitor Start: 09-02-2023 End: 02-27-2024 take 1 tablet by mouth once daily Escitalopram Oxalate 20 mg tablet Discontinued 20 mg PO DAILY September 02, 2023 12:00am February 27, 2024 3:15pm isopropyl alcohol 0.7 ml/ml medicated pad (20 sources) Start: 03-28-2021 End: 04-02-2021 Alcohol Swabs (Bd Alcohol Swabs) pads, medicated Discontinued 1 NMA TOPICAL .Daily. 100 March 30, 2021 2:05pm April 02, 2021 9:08am Start: 03-28-2021 End: 04-02-2021 Alcohol Swabs (Bd Alcohol Sw abs) pads, medicated Discontinued 1 PAD TOPICAL .Daily. 100 March 30, 2021 2:05pm April 02, 2021 9:08am megestrol acetate 40 mg oral tablet (10 sources) Progestin Start: 01-27-2023 End: 02-27-2024 take 1 tablet by mouth once daily Megestrol 40 mg tablet Discontinued 40 mg PO DAILY July 28, 2023 5:09pm February 27, 2024 3:19pm miSOPROStol 0.2 mg oral tablet (2 sources) Prostaglandin E1 Analog Start: 09-03-2023 End: 12-17-2023 Misoprostol (Cytotec) 200 mcg tablet Discontinued 200 ug PO .complex 2 September 03, 2023 12:00December 17, 2023 11:49am take the night before and two hours prior to the procedure nitrofurantoin, macrocrystals 25 mg / nitrofurantoin, monohydrate 75 mg oral capsule (8 sources) Nitrofuran Antibacterial Start: 03-27-2022 End: 04-03-2022 take 1 capsule by mouth twice daily at mealtime Nitrofurantoin Monohyd/M-Cryst (Macrobid) 100 mg capsule Discontinued 100 mg PO TWICE A DAY 14 March 27, 2022 1:00am April 02, 2022 1:00am April 03, 2022 1:08am must administer with a meal/food omeprazole 10 mg delayed release oral capsule (20 sources) Proton Pump Inhibitor Start: 06-24-2017 End: 03-28-2021 take 2 capsules by mouth once daily Omeprazole 10 mg capsule,delayed release(DR/EC) Discontinued 20 mg PO DAILY June 24, 2017 1:41pm March 28, 2021 10:08am Start: 06-24-2017 End: 03-28-2021 take 20 mg by mouth once daily Omeprazole Discontinued 20 MG PO DAILY June 24, 2017 1:41pm March 28, 2021 10:08am Start: 05-19-2014 End: 06-24-2017 take 1 capsule by mouth once daily Omeprazole 10 MG capsule Discontinued 10 mg PO DAILY May 19, 2014 12:00am June 24, 2017 1:45pm PARoxetine hydrochloride 10 mg oral tablet (20 sources) Serotonin Reuptake Inhibitor Start: 05-19-2014 End: 02-27-2024 take 1 tablet by mouth once daily Paroxetine Hcl 10 mg tablet Discontinued 10 mg PO DAILY January 01, 2023 1:38pm February 27, 2024 3:19pm predniSONE 10 mg oral tablet (15 sources) Start: 02-18-2024 End: 03-19-2024 take 2 tablets by mouth twice daily Prednisone 10 mg tablet Discontinued 20 mg PO TWICE A DAY February 18, 2024 1:00am March 19, 2024 10:41am Start: 08-30-2021 End: 09-26-2021 take 4 tablets by mouth once daily, then take 3 tablets by mouth once daily, then take 2 tablets by mouth once daily, then take 1 tablet by mouth once daily Prednisone 10 mg tablet Discontinued 10 mg PO DAILY August 30, 2021 12:00am September 26, 2021 12:01pm 4 tablets daily x3 days, then 3 tablets daily x3 days, then 2 tablets daily x3 days, then 1 tablets daily x3 days promethazine hydrochloride 25 mg oral tablet (14 sources) Phenothiazine Start: 05-19-2014 End: 06-24-2017 take 1 tablet by mouth every six hours as needed for nausea Promethazine 25 MG tablet Discontinued 25 mg PO EVERY 6 HOURS NEEDED as needed for Nausea May 19, 2014 12:00am June 24, 2017 1:42pm Vitamin B Complex capsule (2 sources) Start: 01-01-2023 End: 09-02-2023 Vitamin B Complex capsule Discontinued 1 NMA PO DAILY January 01, 2023 1:00am September 02, 2023 8:33am Problems Active Problems Problem Classification Problem Date Documented Date Episodic/Chronic Abdominal pain (20 sources) Pain in pelvis; Translations: [Pelvic and perineal pain] Onset: 09-25-2023 06-11-2022 Episodic Comment on above: UA blood only, cx fr iable. Culture pending recommend d and c hy steroscopy possible symphion Diabetes mellitus without complication (20 sources) Diabetes mellitus; Translations: [Type 2 diabetes mellitus without complications] Chronic Diabetes mellitus without complication (1 source) Glycosuria; Translations: [Glycosuria] Episodic Immunizations and screening for infectious disease (5 sources) Patient encounter status; Translations: [Encounter for screening for COVID-19] 09-02-2023 Episodic Nonmalignant breast conditions (1 source) Mastodynia; Translations: [Mastodynia] Onset: 07-19-2024 Episodic Nutritional deficiencies (20 sources) Vitamin D deficiency; Translations: [Vitamin D deficiency, unspecified] Chronic Other female genital disorders (3 sources) 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; Translations: [Benign endometrial hyperplasia] 01-27-2023 Chronic Comment on above: s/p megace treatment and nl emb [facility] Other female genital disorders (2 sources) Benign endometrial hyperplasia; Translations: [Simple endometrial hyperplasia without atypia] Onset: 03-04-2024 01-27-2023 Chronic Other female genital disorders (6 sources) Hydrometra; Translations: [Other specified noninflammatory disorders of uterus] 07-25-2023 Episodic Comment on above: persistent, recommen d d and c hysteroscopy possible symphion Other female genital disorders (6 sources) Other specified noninflammatory disorders of uterus; Translations: [Other specified disorders of uterus, not elsewhere classified] 08-28-2022 Episodic Other female genital disorders (2 sources) Disorder of uterine cervix; Translations: [Other specified noninflammatory disorders of cervix uteri] 09-03-2023 Episodic Comment on above: s/p 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 Very blue, ecchymotic in appearance. Thin tissue, easily bleeds. Cervical stenosisUS nl, pap negativeGyn/Onc referral Other screening for suspected conditions (not mental disorders or infectious disease) (5 sources) Mammography abnormal; Translations: [Other abnormal and inconclusive findings on diagnostic imaging of breast] Onset: 04-18-2024 Episodic Other upper respiratory infections (2 sources) Acute upper respiratory infection; Translations: [Acute upper respiratory infection, unspecified] 01-31-2023 Episodic Otitis media and related conditions (2 sources) Acute right otitis media; Translations: [Otitis media, unspecified, right ear] 01-31-2023 Episodic Poisoning by nonmedicinal substances (16 sources) Bee sting; Translations: [Toxic effect of venom of bees, accidental (unintentional), initial encounter] Episodic Spondylosis; intervertebral disc disorders; other back problems (20 sources) Pain in thoracic spine; Translations: [Pain in thoracic spine] Onset: 06-16-2024 Episodic Superficial injury; contusion (1 source) Foreign body of foot; Translations: [Superficial foreign body, right foot, initial encounter] Episodic Unclassified (2 sources) M54.6 - Pain in thoracic spine Unclassified (1 source) Low back pain, unspecified; Translations: [Low back pain, unspecified] Onset: 03-18-2024 Unclassified (1 source) Cough, unspecified; Translations: [Cough, unspecified] Onset: 03-02-2024 Urinary tract infections (1 source) Urinary tract infectious disease; Translations: [Urinary tract infection, site not specified] Episodic Past or Other Problems Problem Classification Problem Date Documented Da te Episodic/Chronic Administrative/social admission (1 source) Other specified counseling; Translations: [Other specified counseling] Onset: 10-20-2023 Episodic Genitourinary symptoms and ill-defined conditions (5 sources) Dysuria; Translations: [Dysuria] Onset: 12-17-2023 Episodic Results Test Name Value Interpretation Reference Range 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 07-07-2024 Miner Operator Office Visit Report [facility] [address], [address] [place] [address] OFFICE VISIT Date of Service: 07/07/24 MR#: [id number] Acct: [id number] Name: FRANKO SARMIENTO Rep #: [id number] : 1960 Provider: ALLISON Owens Age/Sex: 64/F Location: [facility] [place] Status: Signed Intake Vital Signs 12/17/23 10:41 06/07/24 09:27 07/07/24 13:19 Height 5 ft 7 in 5 ft 7 in 5 ft 7 in Weight: 160 lb 6 oz BMI 25.1 BP 114/69 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 Required: No Is patient in pain?: No Allergies nitrofurantoin (From Macrobid) Allergy (Verified 07/07/24 13:21) Urticaria Penicillins Allergy (Verified 07/07/24 13:21) PT UNSURE OF REACTION Sulfa (Sulfonamide Antibiotics) Allergy (Verified 07/07/24 13:21) HIGH BP Medications ???Medication ???Instructions ???Recorded ???Confirmed ???Type lancets 21 gauge #100 ea 03/30/21 07/07/24 Rx blood sugar diagnostic (Blood #100 ea 04/02/21 07/07/24 Rx Glucose Test strips) blood-glucose meter #1 ea 04/02/21 07/07/24 Rx cholecalciferol (vitamin D3) 50 50 mcg PO DAILY 10/03/21 07/07/24 History mcg (2,000 unit) capsule glimepiride 2 mg tablet 2 mg PO QAM #90 tabs 09/23/2206/11 Rx metformin 500 mg tablet 500 mg PO DAILY #90 tabs 02/13/23 07/07/24 Rx calcium carbonate 500 mg PO QDAY 02/27/24 07/07/24 H istory cyclobenzaprine 5 mg tablet 5 mg PO TID PRN muscle spasm #30 0 03/19/24 07/07/24 Rx tabs Is last menstrual period known: No Patient : No : No PFSH Medical History Hx of colonic polyps Simple endometrial hyperplasia without atypia Wears dentures Wears glasses Back pain Dietary restriction History of IBS Gastric reflux Chronic cough History of stress test Bee sting Carpal tunnel syndrome of right wrist Depression Thyroid nodule Abnormal ultrasound of breast Acid reflux Asthma Diabetes Surgical History History of hysteroscopy History of colonoscopy with polypectomy S/P D C (status post dilation and curettage) Hx of appendectomy History of laparoscopic cholecystectomy Family History Mother Breast cancer Arthritis Father Cancer Brain Social History household members: spouse current occupational status: retired Smoking Status: Never smoker alcohol intake: never substance use type: does not use caffeine: Yes what type of physical activity do you participate in: none seatbelt use: always do you feel safe at home: Yes additional social history: - Jose History 5 Elective abortions Hx Para 2 Spontaneous abortions 3 Hx # Term Pregnancies Ectopic pregnancies Hx # Pregnancies Multiple births # of living children Past Pregnancies Del. Date Name GA/Weeks Outcome Route Bth Weight Infant Gen Labor Lgth Anesthesia Del Locatn Provider FOB Unknown Madi Baum HPI Encounter for routine gynecological examination Details: FRANKO SARMIENTO is a 64 year old who presents for annual exam; she reports lower pelvic pain x 1 week. She reports she has had nausea with this; no vomiting. Reports occasional diarrhea. She denies fever, chills. Last PAP: 2023; normal. HPV neg. History of abnormal PAP: no. Last mammogram: 2023; normal. History of abnormal mammogram: no. Colon cancer screenin--[facility]--follow up 3 years; normal. Other preventative health care screenings: Joel Gaston; PCP. ROS Const Constitutional: Denies chills, fatigue, fever(s), headache(s) or weight loss Eyes Eyes: Denies change in vision ENT ENT: Denies dizziness Resp Resp: Denies cough GI GI: Reports abdominal pain (dull ache); Denies constipation or nausea : Reports pelvic pain (dull ache); Denies difficulty voiding, dysuria, hematuria, nipple discharge, prolapse symptoms, urinary incontinence, vaginal discharge, vaginal dryness, vaginal odor or vaginal pruritus Skin Skin/Breast: Reports breast pain (left side); Denies alopecia, rash, breast mass, breast skin changes or nipple discharge Neuro Neuro: Denies dizziness Psych Psych: Denies anxiety or depression Endo Endo: Denies cold intolerance, excessive sweating or heat intolerance Exam Const General: cooperative, healthy appearing, comfortable, no acute distress, well groomed and well hydrated Nutritional Appearance: well nourished Orientation: alert, awake and oriented x3 HENMT Head: normal to inspection and normocephalic Ears: hearing grossly normal bilaterally and external ears normal Nose: external nose normal Face and sinus: normal facial exam (more content not included)... Normal [facility] Orthopedic Visit Reporton Orthopedic Visit Report [facility] [address] [place] [address] OFFICE VISIT Date of Service: 06/07/24 MR#: [id number] Acct: [id number] Name: FRANKO SARMIENTO Rep #: [id number] : 1960 Provider: ELIZABETH Hilario Age/Sex: 64/F Location: [facility] [place] Status: Signed Intake Vital Signs 04/12/24 08:23 06/04/24 10:11 06/07/24 09:27 Height 5 ft 7 in 5 ft 7 in 5 ft 7 in Weight: 158 lb BMI 24.7 Intake Visit Reasons: THORACIC SPINE Chief Complaint: thoracic spine pain Accompanied by: Self Is patient in pain?: Yes Pain scale (1-10): 5 Allergies nitrofurantoin (From Macrobid) Allergy (Verified 06/07/24 09:30) Urticaria Penicillins Allergy (Verified 06/07/24 09:30) PT UNSURE OF REACTION Sulfa (Sulfonamide Antibiotics) Allergy (Verified 06/07/24 09:30) HIGH BP Medications ???Medication ???Instructions ???Recorded ???Confirmed ???Type lancets 21 gauge #100 ea 03/30/21 06/07/24 Rx blood sugar diagnostic (Blood #100 ea 04/02/21 06/07/24 Rx Glucose Test strips) blood-glucose meter #1 ea 04/02/21 06/07/24 Rx cholecalciferol (vitamin D3) 50 50 mcg PO DAILY 10/03/21 06/07/24 History mcg (2,000 unit) capsule glimepiride 2 mg tablet 2 mg PO QAM #90 tabs 09/23/2205/12 Rx metformin 500 mg tablet 500 mg PO DAILY #90 tabs 02/13/23 06/07/24 Rx calcium carbonate 500 mg PO QDAY 02/27/24 06/07/24 H istory cyclobenzaprine 5 mg tablet 5 mg PO TID PRN muscle spasm #30 0 03/19/24 06/07/24 Rx tabs Have you fallen in the past year?: Yes PFSH Medical History Hx of colonic polyps Simple endometrial hyperplasia without atypia Wears dentures Wears glasses Back pain Dietary restriction History of IBS Gastric reflux Chronic cough History of stress test Bee sting Carpal tunnel syndrome of right wrist Depression Thyroid nodule Abnormal ultrasound of breast Acid reflux Asthma Diabetes Surgical History History of hysteroscopy History of colonoscopy with polypectomy S/P D C (status post dilation and curettage) Hx of appendectomy History of laparoscopic cholecystectomy Family History Mother Breast cancer Arthritis Father Cancer Brain Social History household members: spouse current occupational status: retired Smoking Status: Never smoker alcohol intake: never substance use type: does not use caffeine: Yes what type of physical activity do you participate in: none seatbelt use: always do you feel safe at home: Yes additional social history: - Jose [facility] THORACIC SPINE Details: This documentation accurately reflects the service provided and the decisions made by me, ELIZABETH Hilario 06/07/2436. Part of today???s visit was documented by Verena Sawyer MA, acting as scribe. FRANKO SARMIENTO is a 64 year old F here today for thoracic spine MRI review. Patient would like to go over the MRI review to see what the next step is. Patient says she continues to have this left sided thoracic pain that extends into her ribs. This pain is located beneath her scapula and is not tender to palpation. HPI from 03/19/24: FRANKO SARMIENTO is a 64 year old F here today for thoracic spine pain. Pt. advises she has been experiencing thoracic spine pain for 4- 5 years. The pain is constant and dull to the left of her mid bra line. She states it is intermittently sharp. she states it increases with activity, walking, bending and with taking a deep breath intermittently. She states it radiates into her left rib cage. This pain is subscapular and does not extend up into her scapula and also does not extend up into her neck or into her lower back. Says that when she is not moving she does not have pain. She says she is slightly frustrated due to the chronicity of this pain and the fact that she has not had any answers as to why she is having the pain. She states she remembers the day it began she had pulled a weed deep root as she was gardening. She has tried ice, heat, Tylenol, advil and a muscle relaxer. She has done PT in the past which was not helpful ,it worsened. She denies previous back injury or surgery. The patient denies any balance or dexterity issues. Ortho Exam General General: Yes no acute distress Neurologic: Yes alert and Yes oriented x3 Spine SPINE TESTING CERVICAL THORACIC LUMBAR Musculoskeletal Strength 0=absent - 5=normal Details: Neurological exam of the upper and lower extremities shows 5X5 power. Normal sensation across all dermatomes. No hyperreflexia. No midline or paraspinal tenderness. Co (more content not included)... Normal [facility] Magnetic resonance imaging r eportOrdered By: Michael Alan on 05-22-2024 Study report [facility] Imaging Services [address] [place] [address] Spine Thoracic (Routine) MR#: [id number] Acct: [id number] Name: FRANKO SARMIENTO Rep #: [id number] : 1960 F 64 From: Jose Raul Alan DO PCP: Dr. Joel Gaston MD Status: REG CL I Study:Spine Thoracic (Routine) Date of Exam: 05/22/24 Exam# [id number] Ordering Dr: Danyel Angela PROCEDURE: MRI SPINE THORACIC (ROUTINE) 05/22/2024 REASON FOR EXAM: THORACIC RADICULOPATHY TECHNIQUE: Noncontrast thoracic spine MRI. Coronal and Sagittal reconstruction series were provided. COMPARISON: None FINDINGS: Vertebral body heights are preserved. Negative for fracture or suspicious marrow replacement. Multilevel vertebral body hemangiomas. Alignment is preserved. Spinal cord is of normal caliber, contourand signal intensity. No focal disc abnormality, spinal stenosis or foraminal narrowing. No paraspinal mass. MRI/Spine Thoracic (Routine) IMPRESSION: 1. No focal disc abnormality, spinal stenosis or significant foraminal narrowing. 2. Multilevel vertebral body hemangiomas. [facility] CC: ELIZABETH Hilario; Dr. Joel Gaston MD ~ Under Water Assistant: Signed [facility] Spine Thoracic (Routine)on 0 05-22-2024 Spine Thoracic (Routine) [facility] Imaging Services [address] [place], [place] [address] Spine Thoracic (Routine) MR#: [id number] Acct: [id number] Name: FRANKO SARMIENTO Rep #: [id number] : 1960 F 64 From: Michael Gonzales PCP: Dr. Joel Gaston MD Status: REG CLI Study: Spine Thoracic (Routine) Date of Exam: Exam# [id number] Ordering Dr: Cris Angela PROCEDURE: MRI SPINE THORACIC (ROUTINE) 05/22/2024 REASON FOR EXAM: THORACIC RADICULOPATHY TECHNIQUE: Noncontrast thoracic spine MRI. Coronal and Sagittal reconstruction series were provided. COMPARISON: None FINDINGS: Vertebral body heights are preserved. Negative for fracture or suspicious marrow replacement. Multilevel vertebral body hemangiomas. Alignment is preserved. Spinal cord is of normal caliber, contour and signal intensity. No focal disc abnormality, spinal stenosis or foraminal narrowing. No paraspinal mass. MRI/Spine Thoracic (Routine) IMPRESSION: 1. No focal disc abnormality, spinal stenosis or significant foraminal narrowing. 2. Multilevel vertebral body hemangiomas. Reading Location: [facility] CC: ELIZABETH Hilario; Dr. Joel Gaston MD Under Water Assistant: Signed Normal [facility] Bedside Glucoseon 04-12-2024 FINGERSTICK GLU 132 mg/dL High 74-106 [facility] Comment on above: Result Comment: [place] TENORIO OF PATIENT CARE PER NURSING PROTOCOL Performed By: #### L 501.080 ####[facility] [id number] [facility] [place], [address] Colonoscopy Reporton 025 Colonoscopy Report [facility] Medical Records Department [address] [place] [address] Colonoscopy Report MR#: [id number] Acct: [id number] Name: FRANKO SARMIENTO Rep #: [id number] : 1960 64 From: Ashley Rodriguez MD PCP: Dr. Joel Gaston MD Status:[facility] Patient Name: Franko Sarmiento Procedure Date: 04/12/2024 9:03 AM Date of : 1960 Age: 64 Procedure: Colonoscopy Indications: High risk colon cancer surveillance: Personal history of colonic polyps Providers: Ashley Rodriguez MD Referring MD: Joel Gaston Md Medicines: Monitored Anesthesia Care Patient Profile: This is a 64 year old female. Last Colonoscopy: 5 years ago. Complications: No immediate complications. Procedure: Pre-Anesthesia Assessment: - Prior to the procedure, a History and Physical was performed, and patient medications and allergies were reviewed. The patient's tolerance of previous anesthesia was also reviewed. The risks and benefits of the procedure and the sedation options and risks were discussed with the patient. All questions were answered, and informed consent was obtained. Prior Anticoagulants: The patient has taken no anticoagulant or antiplatelet agents. ASA Grade Assessment: Per anesthesia. After reviewing the risks and benefits, the patient was deemed in satisfactory condition to undergo the procedure. After I obtained informed consent, the scope was passed under direct vision. Throughout the procedure, the patient's blood pressure, pulse, and oxygen saturations were monitored continuously. The colonoscope was introduced through the anus and advanced to the cecum, identified by the appendiceal orifice, ileocecal valve and palpation. The colonoscopy was performed without difficulty. The patient tolerated the procedure well. The quality of the bowel preparation was good. Scope In: 9:12:38 AM Scope Withdrawal Time 0 hours 23 minutes 10 seconds Scope Out: 9:42:25 AM Total Procedure Duration Time 0 hours 29 minutes 47 seconds Findings: The perianal and digital rectal examinations were normal. Five sessile polyps were found in the rectum, sigmoid colon and cecum. The polyps were 3 to 5 mm in size. These polyps were removed with a cold biopsy forceps. Resection and retrieval were complete. The exam was otherwise without abnormality on direct and retroflexion views. Impression: - Five 3 to 5 mm polyps in the rectum, in the sigmoid colon and in the cecum, removed with a cold biopsy forceps. Resected and retrieved. - The examination was otherwise normal on direct and retroflexion views. Recommendation: - Discharge patient to home. - Resume previous diet. - Continue present medications. - Await pathology results. - Repeat colonoscopy in 3 - 5 years for surveillance based on pathology results. Procedure Code(s): --- Professional --- 11433, PT, Colonoscopy, flexible; with biopsy, single or multiple Diagnosis Code(s): --- Professional --- Z86.010, Personal history of colonic polyps D12.8, Benign neoplasm of rectum D12.5, Benign neoplasm of sigmoid colon D12.0, Benign neoplasm of cecum CPT copyright 2021 [employer]. All rights reserved. The codes documented in this report are preliminary and upon acting teacher review may be revised to meet current compliance requirements. MD Ashley Alvares MD 04/12/2024 9:48:50 AM This report has been signed electronically. Number of Addenda: 0 Note Initiated On: 04/12/2024 9:03 AM 04/12/24 0948 Date Ashley Rodriguez MD Cosigner Signature: Date (if indicated) CC: Dr. Joel Gaston MD; Dr. Ashley Rodriguez MD Date Dictated: 04/12/24902 Date Transcribed: Under Water Assistant: TR Signed [facility]dered By: Ashley Rodriguez on 04-12-2024 Bedside Glucose (Misc Panel) 132 mg/dL High 74-106 [facility] Comment on above: MANAGEMENT OF PATIEN T CARE PER NURSING PROTOCOL Glucose [Mass/Vol] 132 mg/dL High 74-106 [facility] Comment on above: MANAGEMENT OF PATIEN T CARE PER NURSING PROTOCOL MR/POSTOP.ANEmiya 04-12-2024 MR/POSTOP.[facility] Medical Records Department [address] [place] [address] Anesthesia Postop Eval I 04/12/24950 MR#: [id number] Acct: [id number] Name: FRANKO SARMIENTO Rep #: [id number] : 1960 64 From: Sherwin Jefferson PCP: Dr. Joel Gaston MD Status:REG [facility] [place] Y Race: C Location: EN Anesthesia: Postop Eval I Current Vital Signs Temperature: 97 F Pulse Rate: 66 Blood Pressure: 100/78 Respiratory Rate: 16 Pulse Ox: 98 Oxygen Delivery Method: Room Air Assessment Airway patent: Yes Spontaneous unlabored respirations: Yes Mental status: Awake and Calm nausea: No Vomiting: No Anesthesia Complication: No Fluid Hydration Crystalloid volume administer (ml): 60 Total IV fluid infused: 60 Progress Note Anesthesia document: Postop Eval 1 completed: Yes 04/12/24951 Date Sherwin Mccormick Signature: Date CC: Signed [facility] MR/KZKQPCVZ2pt 04-12-2024 MR/POSTOPAN2 [facility] Medical Records Department [address] [place] [address] Anesthesia Postop Eval II 04/12/24 1038 MR#: [id number] Acct: [id number] Name: FRANKO SARMIENTO Rep #: [id number] : 1960 64 From: Yaya Reardon MD PCP: Dr. Joel Gaston MD Status:REG SDC Y Race: C Location: EN Anesthesia Postop Eval I Sum Postop Eval Completion status Anesthesia document: Postop Eval 1 completed: Yes Anesthesia Postop Eval I Summary Anesthesia Postop Eval I Summary: Anesthesia Postop Eval I: Assessment Summary Airway patent Yes 04/12/24 09:52 [email or web address] Spontaneous unlabored Yes 04/12/24 09:52 [email or web address] respirations Mental status Awake,Calm 04/12/24 09:52 [email or web address] nausea No 04/12/24 09:52 [email or web address] Vomiting No 04/12/24 09:52 [email or web address] Anesthesia Postop Eval I: Fluid Summary Crystalloid volume administer 60 04/12/24 09:52 [email or web address] (ml) Colloids volume administered ( ml) Blood Product volume administered (ml) Total IV fluid infused 60 04/12/24 09:52 [email or web address] Anesthesia Postop Eval I: Summary Notes Anesthesia Complication No 04/12/24 09:52 [email or web address] Anesthesia Complication Comment: Post-operative progress note Anesthesia: Postop Eval II Evaluation Mental status: Awake Pain Level: 0 nausea: No Vomiting: No 04/12/24 1039 Date Yaya Christinaignbill Signature: Date CC: Signed Normal [facility] Surgery Specimen Level Dieter 04-12-2024 Surgery Specimen Level IV ---- Patient Age/Sex Location Account Attending Physician ---- FRANKO SARMIENTO 64/F EN [id number] Dr. Ashley Rodriguez MD ---- Specimen: [id number] Received: 04/12/24 Status: DAVID Razadanya Num: [id number] Spec Type: COLON BX Subm Dr: Dr. Ashley Rodriguez MD HEADER OPERATION: Colonoscopy with biopsy PRE-OP DIAGNOSIS: Encounter for screening for malignant neoplasm of colon TISSUE SUBMITTED: A- Cecal polyp biopsy, B- Sigmoid colon polyp biopsy, C- Rectal polyp biopsy ---- MICROSCOPIC DIAGNOSIS A. Colon, cecum, polyp, biopsy: * Sessile serrated lesion. B. Colon, sigmoid, polyp, biopsy: * Hyperplastic polyp. C. Rectum, polyp, biopsy: * Hyperplastic polyp. MICROSCOPIC DESCRIPTION Slides are reviewed. GROSS DESCRIPTION A. Received in fixative is one container labeled with the patient's name and designated Cecal polyp biopsy. The specimen consists of multiple irregular fragments of light castanon soft tissue that in aggregate measure 1.5 x 0.2 x 0.2 cm. The specimen is totally submitted in one cassette. B. Received in fixative is one container labeled with the patient's name and designated Sigmoid colon polyp biopsy. The specimen consists of multiple irregular fragments of light castanon soft tissue that in aggregate measure 1.8 x 0.3 x 0.2 cm. The specimen is totally submitted in one cassette. C. Received in fixative is one container labeled with the patient's name and designated Rectal polyp biopsy. The specimen consists of multiple irregular fragments of light castanon soft tissue that in aggregate measure 1 x 0.2 x 0.2 cm. The specimen is totally submitted in one cassette. 04/12/2024 TC: CPT:88841y8 ---- Patient Age/Sex Location Account Attending Physician ---- FRANKO SARMIENTO/F EN [id number] Dr. Ashley Rodriguez MD ---- Signed (signature on file) Dr. Giovanna Umanzor MD 04/13/24 1525 ---- Normal [facility] Comment on above: Performed By: #### P SUIV #### [facility] Laboratory [facility] Jennifer José. [place], [place], [id number] Orthopedic Visit Reporton Orthopedic Visit Report [facility] [address] [place] [address] OFFICE VISIT Date of Service: 03/19/24 MR#: [id number] Acct: [id number] Name: FRANKO SARMIENTO Rep #: [id number] : 1960 Provider: ELIZABETH Hilario Age/Sex: 64/F Location: [facility] [place] Status: Signed Intake Vital Signs 02/27/24 14:24 03/19/24 09:36 Height 5 ft 7 in 5 ft 7 in Weight: 159 lb 159 lb BMI 24.9 24.9 Intake Visit Reasons: THORACIC SPINE Chief Complaint: thoracic spine pain Is patient in pain?: Yes (thoracic ) Pain scale (1-10): 4 Allergies nitrofurantoin (From Macrobid) Allergy (Verified 03/19/24 09:40) Urticaria Penicillins Allergy (Verified 03/19/24 09:40) PT UNSURE OF REACTION Sulfa (Sulfonamide Antibiotics) Allergy (Verified 03/19/24 09:40) HIGH BP Medications ???Medication ???Instructions ???Recorded ???Confirmed ???Type lancets 21 gauge #100 ea 03/30/21 03/19/24 Rx blood sugar diagnostic (Blood #100 ea 04/02/21 03/19/24 Rx Glucose Test strips) blood-glucose meter #1 ea 04/02/21 03/19/24 Rx cholecalciferol (vitamin D3) 50 50 mcg PO DAILY 10/03/21 03/19/24 History mcg (2,000 unit) capsule glimepiride 2 mg tablet 2 mg PO QAM #90 tabs 09/23/2209/03 Rx metformin 500 mg tablet 500 mg PO DAILY #90 tabs 02/13/23 03/19/24 Rx calcium carbonate 500 mg PO QDAY 02/27/24 03/19/24 H istory cyclobenzaprine 5 mg tablet 5 mg PO TID PRN muscle spasm #30 0 03/19/24 03/19/24 Rx tabs Have you fallen in the past year?: No PFSH Medical History Hx of colonic polyps Simple endometrial hyperplasia without atypia Wears dentures Wears glasses Back pain Dietary restriction History of IBS Gastric reflux Chronic cough History of stress test Bee sting Carpal tunnel syndrome of right wrist Depression Thyroid nodule Abnormal ultrasound of breast Acid reflux Asthma Diabetes Surgical History History of colonoscopy with polypectomy S/P D C (status post dilation and curettage) Hx of appendectomy History of laparoscopic cholecystectomy Family History Mother Breast cancer Arthritis Father Cancer Brain Social History household members: spouse current occupational status: retired Smoking Status: Never smoker alcohol intake: never substance use type: does not use caffeine: Yes what type of physical activity do you participate in: none seatbelt use: always do you feel safe at home: Yes additional social history: - Jose [facility] THORACIC SPINE Chief Complaint: thoracic spine pain Details: This documentation accurately reflects the service provided and the decisions made by me, ELIZABETH Hilario 03/19/24 0936. Part of today???s visit was documented by [ ], acting as scribe. FRANKO SARMIENTO is a 64 year old F here today for thoracic spine pain. Pt. advises she has been experiencing thoracic spine pain for 4- 5 years. The pain is constant and dull to the left of her mid bra line. She states it is intermittently sharp. she states it increases with activity, walking, bending and with taking a deep breath intermittently. She states it radiates into her left rib cage. This pain is subscapular and does not extend up into her scapula and also does not extend up into her neck or into her lower back. Says that when she is not moving she does not have pain. She says she is slightly frustrated due to the chronicity of this pain and the fact that she has not had any answers as to why she is having the pain. She states she remembers the day it began she had pulled a weed deep root as she was gardening. She has tried ice, heat, Tylenol, advil and a muscle relaxer. She has done PT in the past which was not helpful ,it worsened. She denies previous back injury or surgery. The patient denies any balance or dexterity issues. Ortho Exam General General: Yes no acute distress Neurologic: Yes alert and Yes oriented x3 Spine SPINE TESTING CERVICAL THORACIC LUMBAR Musculoskeletal Strength 0=absent - 5=normal Details: Neurological exam of the upper and lower extremities shows 5X5 power. Normal sensation across all dermatomes. No hyperreflexia. No midline or paraspinal tenderness. Coding Level of Care Code Off vis,new,level 4 Diagnoses Chronic left-sided thoracic back pain M54.6; G89.29 Chronicity: chronic Back pain laterality: left Thoracic radiculopathy M54.14 Assessment and Plan Assessment and Plan (1) Thoracic back pain: Status: Acute Qualifiers: Chronicity: chronic Back pain laterality: left Qualified Code(s): M54.6 - Pain in thoracic spine; G89.29 - Other chronic pain ( (more content not included)... Normal [facility] Thoracic Spine 2 Viewson Thoracic Spine 2 Views [facility] Imaging Services [address] [place] [address] Thoracic Spine 2 Views MR#: [id number] Acct: [id number] Name: FRANKO SARMIENTO Rep #: [id number] : 1960 F 64 From: Sukh An MD PCP: Dr. Joel Gaston MD Status: REG CLI Study: Thoracic Spine 2 Views Date of Exam: 02/27/24 Exam# [id number] Ordering Dr: Joel Gaston MD [id number] STUDY: X-RAY - THORACIC SPINE REASON FOR EXAM: Female, 64 years old. Chronic back pain TECHNIQUE: 3 view(s) of the thoracic spine were obtained. COMPARISON: None. FINDINGS: Normal kyphosis of the thoracic spine. There is no substantial scoliosis. Normal thoracic vertebrae and endplates. Mild disc space narrowing throughout the thoracic spine The soft tissue structures are unremarkable. RAD/Thoracic Spine 2 Views IMPRESSION: Mild degenerative changes, no acute findings Electronically Signed: Silvino An MD at 15:21 EST , CC: Dr. Joel Gaston MD Under Water Assistant: Signed Normal [facility] No Panel Informationon 02-17 POC Nasal Swab RSV Negative [facility] POC SARS CoV-2 Antigen Negative [facility] Urgent Care Visit Reporton 0 02-18-2024 Urgent Care Visit Report [facility] [address], [address] [place] [address] OFFICE VISIT Date of Service: 02/18/24 MR#: [id number] Acct: [id number] Name: FRANKO SARMIENTO Rep #: [id number] : 1960 Provider: ELIZABETH Ornelas Age/Sex: 64/F Location: [facility] [place] Status: Signed Intake Vital Signs 01/02/24 13:43 02/18/24 11:02 02/18/24 11:17 Height 5 ft 7 in 5 ft 7 in BP 122/66 H Blood Pressure Location Lt brachial Position Sitting Respiration 16 Pulse 81 Pulse Source NIBP Temp 98.2 F Temp Source Oral Pulse Oximetry (%) 96 Oxygen Delivery Method room air Intake Visit Reasons: COUGH, FATIGUE Chief Complaint: cough, fatigue, congest, drainage, EDWARDS, rib pain Nickel Plater Required: No Is patient in pain?: No Allergies Penicillins Allergy (Verified 02/18/24 11:18) PT UNSURE OF REACTION Sulfa (Sulfonamide Antibiotics) Allergy (Verified 02/18/24 11:18) HIGH BP Is last menstrual period known: No Post menopausal: Yes Patient : No Have you fallen in the past year?: No Nurse's Note: cough, fatigue, congest, drainage, EDWARDS, rib pain x 6 days. denies fever PFSH Medical History Hx of colonic polyps Simple endometrial hyperplasia without atypia Wears dentures Wears glasses Back pain Dietary restriction History of IBS Gastric reflux Chronic cough History of stress test Bee sting Carpal tunnel syndrome of right wrist Depression Thyroid nodule Abnormal ultrasound of breast Acid reflux Asthma Diabetes Surgical History History of colonoscopy with polypectomy S/P D C (status post dilation and curettage) Hx of appendectomy History of laparoscopic cholecystectomy Family History Mother Breast cancer Arthritis Father Cancer Brain Social History household members: spouse current occupational status: retired Smoking Status: Never smoker alcohol intake: never substance use type: does not use caffeine: Yes what type of physical activity do you participate in: none seatbelt use: always do you feel safe at home: Yes additional social history: - Jose Female Reproductive History Menstrual Ab spontaneous: 3 HPI HPI Chief Complaint: cough, fatigue, congest, drainage, EDWARDS, rib pain Details: FRANKO SARMIENTO, is a 64 F who presents to the office today for cough, fatigue, congest, purulent postnasal drip, EDWARDS, rib pain x 6 days. Denies fever, chills, sweats, or cp/ sob/ gayle. Nonsmoker. No complaints of chest pressure with shortness of breath or dyspnea on exertion. Several close contacts w/ similar c/o, including her mother. Mucinex, tylenol, ibuprofen no help. No other associated symptoms and no other alleviating/aggravatin g factors. ROS Const Constitutional: No other (as above) Exam Const General: cooperative, healthy appearing and no acute distress Nutritional Appearance: average body habitus Orientation: alert, awake and oriented x3 HENMT Head: normal to inspection Ears: hearing grossly normal bilaterally, external ears normal, TM's normal bilaterally and EAC's normal Nose: external nose normal, nares normal, septum normal and no nasal discharge Face and sinus: normal facial exam, sinuses nontender (Though left maxillary fullness to palpation) and face symmetric Mouth: oral mucosae normal, lip normal, tongue normal and oropharynx normal Throat: posterior oropharynx normal, tonsils normal, uvula midline and postnasal drainage (Purulent) Eyes General: appearance normal, both eyes and all related structures Neck Neck: normal visual inspection, full ROM, no meningeal signs, supple and lymphadenopathy (Bilateral anterior cervical lymph node swelling/tender to palpation) Neck mass: No Thyroid: thyroid normal Chest Chest palpation inspection: normal inspection of the chest Resp Effort Inspection: normal respiratory effort and able to speak in complete sentences Auscultation: Bilateral: Rhonchi throughout partially clearing with moist nonproductive cough Cardio Palpation: normal PMI Rate: regular rate Rhythm: regular rhythm Heart Sounds: S1 normal, S2 normal, no gallops, no murmurs and no rubs Pulses: radial pulses present GI Inspection: normal to inspection Skin General: no rashes or lesions noted Neuro General: patient alert, patient awake and patient oriented x3 Cognition: normal cognition Speech: speech normal Psych Appearance: grossly normal Mental Status: mental status grossly normal Mood: congruent mood Affect: normal affect Speech and Movement: speech and movement normal Attitude: cooperative Diagnoses Acute maxillary (more content not included)... Normal [facility] Pelvic w/ Transvaginalon Pelvic w/ Transvaginal [facility] Imaging Services [address] [place], [place] [address] Pelvic w/ Transvaginal MR#: [id number] Acct: [id number] Name: FRANKO SARMIENTO Rep #: [id number] : 1960 F 64 From: Teddy Renteria PCP: Dr. Joel Gaston MD Status: REG CLI Study: Pelvic w/ Transvaginal Date of Exam: 02/06/24 Exam# [id number] Ordering Dr: Brit Blount DO [id number] STUDY: ULTRASOUND OF THE FEMALE PELVIS - COMPLETE REASON FOR EXAM: Female, 64 years old. endometrial hyperplasia TECHNIQUE: Transvaginal and transabdominal imaging. COMPARISON: 07/02/2023 FINDINGS: The uterus is retroflexed and is in a midline position. The uterus measures 6.3 x 4 cm. Normal uterine cervix. The endometrium measures 3.6 mm in thickness, and is hyperechoic. There is no demonstrated endometrial mass. There is fundal calcifications which can represent fibroids. I.U.D. - The patient does not have an I.U.D. There is nonvisualization of the right ovary due to overlying bowel gas. There is nonvisualization of the left ovary due to overlying bowel gas. There is no fluid in the cul-de-sac. Urinary bladder volume is (in cc) 387. US/Pelvic w/ Transvaginal IMPRESSION: No significant endometrial thickening. Uterine fundal calcifications suggesting fibroids. Electronically Signed: Teddy Lopes MD at 21:24 EST , CC: Dr. Joel Gaston MD; Dr. 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 Brit Fitzpatrick DO Age/Sex: 63/F Location: [facility] [place] Status: Signed Intake Vital Signs 12/17/23 10:41 01/02/24 13:43 01/02/24 13:43 Height 5 ft 7 in 5 ft 7 in 5 ft 7 in Weight: 158 lb 159 lb BMI 24.7 24.9 BP 103/68 128/81 H Intake Visit Reasons: EMB Nickel Plater Required: No Is patient in pain?: No Allergies Penicillins Allergy (Verified 01/02/24 13:42) PT UNSURE OF REACTION Sulfa (Sulfonamide Antibiotics) Allergy (Verified 01/02/24 13:42) HIGH BP Medications ???Medication ???Instructions ???Recorded ???Confirmed ???Type lancets 21 gauge #100 ea 03/30/21 01/02/24 Rx blood sugar diagnostic (Blood #100 ea 04/02/21 01/02/24 Rx Glucose Test strips) blood-glucose meter #1 ea 04/02/21 01/02/24 Rx cholecalciferol (vitamin D3) 50 50 mcg PO DAILY 10/03/21 01/02/24 History mcg (2,000 unit) capsule glimepiride 2 mg tablet 2 mg PO QAM #90 tabs 09/23/22 01/02/24 Rx paroxetine HCl 10 mg tablet 10 mg PO DAILY #90 tabs 01/01/23 01/02/24 Rx benzonatate 100 mg capsule 200 mg (2 x 100 mg) PO TID PRN 01/31/23 01/02/24 Rx cough #30 caps metformin 500 mg tablet 500 mg PO DAILY #90 tabs 02/13/23 01/02/24 Rx megestrol 40 mg tablet 40 mg PO DAILY #90 tabs 07/28/23 01/02/24 Rx escitalopram oxalate 20 mg tablet 20 mg PO DAILY 09/02/23 01/02/24 History Post menopausal: No Patient : No : No PFSH PFSH Medical History Hx of colonic polyps Simple endometrial hyperplasia without atypia Wears dentures Wears glasses Back pain Dietary restriction History of IBS Gastric reflux Chronic cough History of stress test Bee sting Carpal tunnel syndrome of right wrist Depression Thyroid nodule Abnormal ultrasound of breast Acid reflux Asthma Diabetes Surgical History History of colonoscopy with polypectomy S/P D C (status post dilation and curettage) Hx of appendectomy History of laparoscopic cholecystectomy Family History Mother Breast cancer Arthritis Father Cancer Brain Social History household members: spouse current occupational status: retired Smoking Status: Never smoker alcohol intake: never substance use type: does not use caffeine: Yes what type of physical activity do you participate in: none seatbelt use: always do you feel safe at home: Yes additional social history: - Jose History 5 Elective abortions Hx Para 2 Spontaneous abortions 3 Hx # Term Pregnancies Ectopic pregnancies Hx # Pregnancies Multiple births # of living children Past Pregnancies Del. Date Name GA/Weeks Outcome Route Bth Weight Infant Gen Labor Lgth [facility]esthesia Del [facility] Provider FOB Unknown Madi Baum [facility] EMB Details: FRANKO SARMIENTO is a 63 year old who presents for a repeat endometrial biopsy due to an inadequate biopsy performed 2 weeks ago. The pathology returned with adipose tissue. The patient has not experienced any pain or discomfort since the day of the procedure. She has a history of simple hyperplasia without atypia and had this diagnosed by Dexter Tripp ROS Unobtainable: All systems reviewed are unremarkable except as noted in H Resp Resp: Reports system reviewed and no additional complaints, except as documented; Denies cough GI GI: Reports as per HPI Psych Psych: Reports system reviewed and no additional complaints, except as documented Exam Const General: cooperative, healthy appearing, comfortable and no acute distress Resp Effort Inspection: normal respiratory effort General: bimanual renal exam normal bilaterally External Female Exam: normal appearance of the urethra Urethra: normal appearance of the urethra Speculum Exam - Vagina: normal appearance of the vagina Speculum Exam - Cervix: normal appearance of the cervix Bimanual Exam- Adnexa, other: normal adnexae and normal Pelvic Support: normal Skin General: no rashes or lesions noted Psych Appearance: grossly normal Speech and Movement: speech and movement normal Office Procedures Endometrial Biopsy Endometrial Biopsy Test: Yes Not Applicable Consent Signed: Yes Time out checklist: patient tenaculum used: Yes dilator used: No Details: Cervix prepped with betadine and pipelle inserted into uterus without complication to 4 cm. Specimen obtained and sen (more content not included)... Normal [facility] Surgery Specimen Level Dieter 2024 Surgery Specimen Level IV ---- Patient Age/Sex Location Account Attending Physician ---- FRANKO SARMIENTO 63/F LABSPEC [id number] Dexter Payne ---- Specimen: [id number] Received: 01/02/24 Status: DAVID Nunez Num: [id number] Spec Type: ENDOM BX/C Subm Dr: Dr. Brit Blount DO [facility] OPERATION: Endometrial biopsy PRE-OP DIAGNOSIS: Simple endometrial hyperplasia without atypia TISSUE SUBMITTED: Endometrial lining ---- MICROSCOPIC DIAGNOSIS Endometrium, biopsy: Rare strips of benign glandular and squamous mucosa. See comment. AM.mr 01/06/2024 COMMENT The specimen primarily consists of mucoid material. Clinical correlation is suggested. MICROSCOPIC DESCRIPTION Slides are reviewed. GROSS DESCRIPTION Received is one container labeled with the patient's name and not further designated. The specimen consists of multiple irregular fragments of mucoid material that in aggregate measure 2.0 x 1.5 x 0.1 cm. The specimen is totally submitted in one cassette. AM. 01/05/2024 TC:5 CPT:70109 ---- Patient Age/Sex Location Account Attending Physician ---- FRANKO SARMIENTO/Yanick CEBALLOS [id number] Dexter Payne ---- Signed (signature on file) Dr. Lei Hummel, DO 01/06/24 1404 ---- Normal [facility] Comment on above: Performed By: #### P SUIV ####[facility] [id number] [place], [address] Miner Operator Office Visit Reporton 12-17-2023 Miner Operator Office Visit Report [facility] [address], [address] [place] [address] OFFICE VISIT Date of Service: 12/17/23 MR#: [id number] Acct: [id number] Name: FRANKO SARMIENTO Rep #: [id number] : 1960 Provider: Dr. Candice bob MD Age/Sex: 63/F Location: [facility] [place] Status: Signed Intake Vital Signs 09/03/23 13:23 12/17/23 10:41 Height 5 ft 7 in 5 ft 7 in Weight: 158 lb BMI 24.7 BP 103/68 Intake Visit Reasons: EMB Nickel Plater Required: No Is patient in pain?: Yes (pain with urination) Allergies Penicillins Allergy (Verified 09/03/23 13:23) PT UNSURE OF REACTION Sulfa (Sulfonamide Antibiotics) Allergy (Verified 09/03/23 13:23) HIGH BP Medications ???Medication ???Instructions ???Recorded ???Confirmed ???Type lancets 21 gauge #100 ea 03/30/21 12/17/23 Rx blood sugar diagnostic (Blood #100 ea 04/02/21 12/17/23 Rx Glucose Test strips) blood-glucose meter #1 ea 04/02/21 12/17/23 Rx cholecalciferol (vitamin D3) 50 50 mcg PO DAILY 10/03/21 12/17/23 History mcg (2,000 unit) capsule glimepiride 2 mg tablet 2 mg PO QAM #90 tabs 09/23/22 12/17/23 Rx paroxetine HCl 10 mg tablet 10 mg PO DAILY #90 tabs 01/01/23 12/17/23 Rx benzonatate 100 mg capsule 200 mg (2 x 100 mg) PO TID PRN 01/31/23 12/17/23 Rx cough #30 caps metformin 500 mg tablet 500 mg PO DAILY #90 tabs 02/13/23 12/17/23 Rx megestrol 40 mg tablet 40 mg PO DAILY #90 tabs 07/28/23 12/17/23 Rx escitalopram oxalate 20 mg tablet 20 mg PO DAILY 09/02/23 12/17/23 History Is last menstrual period known: No Post menopausal: No Patient : No : No PFSH PFSH Medical History Hx of colonic polyps Simple endometrial hyperplasia without atypia Wears dentures Wears glasses Back pain Dietary restriction History of IBS Gastric reflux Chronic cough History of stress test Bee sting Carpal tunnel syndrome of right wrist Depression Thyroid nodule Abnormal ultrasound of breast Acid reflux Asthma Diabetes Surgical History History of colonoscopy with polypectomy S/P D C (status post dilation and curettage) Hx of appendectomy History of laparoscopic cholecystectomy Family History Mother Breast cancer Arthritis Father Cancer Brain Social History household members: spouse current occupational status: retired Smoking Status: Never smoker alcohol intake: never substance use type: does not use caffeine: Yes what type of physical activity do you participate in: none seatbelt use: always do you feel safe at home: Yes additional social history: - Jose History 5 Elective abortions Hx Para 2 Spontaneous abortions 3 Hx # Term Pregnancies Ectopic pregnancies Hx # Pregnancies Multiple births # of living children Past Pregnancies Del. Date Name GA/Weeks Outcome Route Bth Weight Infant Gen Labor Lgth Anesthesia Del Locatn Provider FOB Unknown Madi Unknown Bautista HPI EMB Details: FRANKO SARMIENTO is a 63 year old who presents for follow up of hyperplasia. she dneies any bleeding or abnormal discharge, denies any bowel complaints, some bladder irritation- ua is negative. recent yeast infection treatment. ROS Const Constitutional: Denies fatigue, fever(s), headache(s), increased appetite, poor appetite, weight gain or weight loss Cardio Card: Denies chest pain Resp Resp: Denies cough or dyspnea GI GI: Reports as per HPI; Denies abdominal pain, constipation, nausea or vomiting : Reports as per HPI; Denies difficulty voiding, dysuria, nipple discharge, urinary frequency, urinary incontinence, urinary hesitancy, urinary urgency, vaginal discharge, vaginal dryness, vaginal odor or vaginal pruritus Skin Skin/Breast: Denies change in hair, breast mass, breast pain, breast skin changes or nipple discharge Exam Const General: cooperative, healthy appearing, comfortable, no acute distress and well developed Nutritional Appearance: average body habitus Orientation: alert HENMT Head: normal to inspection and normocephalic Neck Neck: normal visual inspection and trachea midline Thyroid: thyroid normal Resp Effort Inspection: normal respiratory effort GI Inspection: normal to inspection and non-distended Palpation: soft and no hepatosplenomegaly General: bladder normal to palpation External Female Exam: normal external appearance and normal appearance of the urethra Urethra: normal appearance of the urethra, normal palpation and no discharge Speculum Exam - Vagina: normal appearance of the vagina and norm (more content not included)... Normal [facility] Surgery Specimen Level Dieter 12-17-2023 Surgery Specimen Level IV ---- Patient Age/Sex Location Account Attending Physician ---- FRANKO SARMIENTO 63/F LABSPEC [id number] Dr. Candice Ravi MD ---- Specimen: [id number] Received: 12/17/23 Status: DAVID Nunez Num: [id number] Spec Type: ENDOM BX/C Subm Dr: Dr. Candice Ravi MD HEADER OPERATION: Endometrial biopsy PRE-OP DIAGNOSIS: Simple endometrial hyperplasia without atypia TISSUE SUBMITTED: Endometrial tissue ---- MICROSCOPIC DIAGNOSIS Endometrial biopsy: Fragments of benign ectocervical epithelium. Numerous degenerated and desquamated squamous epithelial cells. A fragment of adipose tissue. See comment. SJ.mr 12/19/2023 COMMENT Endometrial tissue is not identified in the specimen. Please make reference to previous specimen [id number] endometrial polyps and curettings with diagnosis of rare polypoid fragment of simple hyperplasia without atypia, fragments of benign myometrium and focal changes suggestive of microscopic leiomyoma. Findings are reported to Dr. Candice Ravi's nurse on 12-19-2023. Clinical correlation and appropriate follow up are necessary. MICROSCOPIC DESCRIPTION Slides are reviewed. GROSS DESCRIPTION Received is one container labeled with the patient's name and not further designated. The specimen consists of multiple irregular fragments of hemorrhagic and mucoid tissue that in aggregate measure 2.0 x 0.5 x 0.1 cm. The specimen is totally submitted in one cassette. 12/18/2023 TC: Can not code CPT:78575 ---- Patient Age/Sex Location Account Attending Physician ---- FRANKO SARMIENTO 63/F LABSPEC [id number] Dr. Candice Ravi MD ---- Signed (signature on file) Dr. Carlos Alberto Gonzalez MD 12/19/23 1248 ---- Normal [facility] Comment on above: Performed By: #### P NARGIS #### [facility] Laboratory [address] [place], [address] Dexa Bone Density Studyon Dexa Bone Density Study [facility] Imaging Services [address] [address] Dexa Bone Density Study MR#: [id number] Acct: [id number] Name: FRANKO SARMIENTO Rep #: [id number] : 1960 F 63 From: Dennis bose MD PCP: Dr. Joel Gaston MD Status: [facility] Study: Dexa Bone Density Study Date of Exam: 10/08/23 Exam# [id number] Ordering Dr: Joel Gaston MD [id number] STUDY: DUAL ENERGY X-RAY ABSORPTIOMETRY / DXA REASON FOR EXAM: Female, 63 years old. Z71.89 TECHNIQUE: Bone Mineral Density (BMD) measurements of lumbar spine and bilateral hips were obtained. COMPARISON: Comparison is made with prior study June 17, 2017. FINDINGS: Lumbar Spine (L1-L4): g/cm2 (0.825) / T-score (-2.0) / Z-score (-0.2) Findings are suggestive of osteopenia with a moderate fracture risk. Left Femur Total: g/cm2 (0.841) / T-score (-0.8) / Z-score (0.4) Left Femoral Neck: g/cm2 (0.717) / T-score (-1.2) / Z-score (0.4) Right Femur Total: g/cm2 (0.855) / T-score (-0.7) / Z-score (0.6) Right Femoral Neck: g/cm2 (0.735) / T-score (-1.0) / Z-score (0.5) The T-Scores on the most recent prior examination were: Lumbar Spine (L1-L4): There has been worsening of bone density since the previous examination. Left Femur Total: which represents a worsening of 12.8%. Right Femur Total: which represents a worsening of 9.1%. BD/Dexa Bone Density Study IMPRESSION: The patient is considered osteopenic as outlined below according to World Juan David Organization (WHO) criteria with a moderate fracture risk. There has been worsening of bone density since the previous examination. Reference Information: The T-score is the number of standard deviations above or below the standard which is normal for young adults at their peak bone mineral density. The World Health Organization (WHO) interprets the T-scores as follows: Above -1 Normal bone density Between -1 and -2.5 Osteopenia Equal to / or below -2.5 Osteoporosis As a practical clinical guideline, osteopenia may be graded as follows: Mild -1 through -1.5 Moderate -1.6 through -2.0 Severe -2.1 through -2.4 The Z-score is the number of standard deviations above or below age-matched controls. A Z-score of less than -1.5 would be considered abnormal. References: 1. NIH Osteoporosis and Related Bone Diseases www osteo.org 2. International Society for Clinical Densitometry www iscd.org 3. National Osteoporosis Foundation www nof.org Electronically Signed: Dennis Ram MD at 10:57 EDT , CC: Dr. Joel Gaston MD Under Water Assistant: Signed Normal [facility] Chest PA and Lateralon 10-05 Chest PA and Lateral [facility] Imaging Services [address] [place], [place] [address] Chest PA and Lateral MR#: [id number] Acct: [id number] Name: FRANKO SARMIENTO Rep #: [id number] : 1960 F 63 From: Sherwin Armendariz MD PCP: Dr. Joel Gaston MD Status: REG CLI Study: Chest PA and Lateral Date of Exam: 10/06/23 Exam# [id number] Ordering Dr: Joel Gaston MD [id number] STUDY: X-RAY CHEST REASON FOR EXAM: Female, 63 years old. Cough. TECHNIQUE: Frontal and lateral views of the chest. COMPARISON: Chest CT dated October 02, 2017. FINDINGS: Mild hyperinflation. There is no demonstrated pleural abnormality. Normal size heart. Normal mediastinum and yuliana. Normal visualized pulmonary arteries. Aortic tortuosity. Thoracic osteopenia with mild thoracic spondylosis. Normal visualized ribs, clavicles, and shoulders. No abnormality of the visualized soft tissue structures of the upper abdomen. RAD/Chest PA and Lateral IMPRESSION: Mild hyperinflation with no acute or active cardiopulmonary disease. Electronically Signed: Sherwin Armendariz MD at 13:45 EDT , CC: Dr. Joel Gaston MD Under Water Assistant: Signed Normal [facility] Urine Cultureon 09-04-2023 URC Culture exhibits no growth. Normal [facility] Comment on above: Performed By: #### M [id number] ####[facility] [id number] [place], [place], [id number] Miner Operator Office Visit Reporton 09-03-2023 Miner Operator Office Visit Report [facility] [address] [place] [address] OFFICE VISIT Date of Service: 09/03/23 MR#: [id number] Acct: [id number] Name: FRANKO SARMIENTO Rep #: [id number] : 1960 Provider: Dr. Candice bob MD Age/Sex: 63/F Location: [facility] [place] Status: Signed Intake Vital Signs 06/23/23 10:20 09/02/23 08:39 09/03/23 13:22 09/03/23 13:23 Height 5 ft 6 in 5 ft 7 in 5 ft 7 in 5 ft 7 in Weight: 151 lb BMI 23.6 BP 117/77 Intake Visit Reasons: MEDICATION F/U Nickel Plater Required: No Is patient in pain?: No Allergies Penicillins Allergy (Verified 09/03/23 13:23) PT UNSURE OF REACTION Sulfa (Sulfonamide Antibiotics) Allergy (Verified 09/03/23 13:23) HIGH BP Medications ???Medication ???Instructions ???Recorded ???Confirmed ???Type lancets 21 gauge #100 ea 03/30/21 09/03/23 Rx blood sugar diagnostic (Blood #100 ea 04/02/21 09/03/23 Rx Glucose Test strips) blood-glucose meter #1 ea 04/02/21 09/03/23 Rx cholecalciferol (vitamin D3) 50 50 mcg PO DAILY 10/03/21 09/03/23 History mcg (2,000 unit) capsule glimepiride 2 mg tablet 2 mg PO QAM #90 tabs 09/23/22 09/03/23 Rx paroxetine HCl 10 mg tablet 10 mg PO DAILY #90 tabs 01/01/23 09/03/23 Rx benzonatate 100 mg capsule 200 mg (2 x 100 mg) PO TID PRN 01/31/23 09/03/23 Rx cough #30 caps metformin 500 mg tablet 500 mg PO DAILY #90 tabs 02/13/23 09/03/23 Rx megestrol 40 mg tablet 40 mg PO DAILY #90 tabs 07/28/23 09/03/23 Rx escitalopram oxalate 20 mg tablet 20 mg PO DAILY 09/02/23 09/03/23 History misoprostol 200 mcg tablet 200 mcg PO .complex #2 tabs 09/03/23 09/03/23 Rx (Cytotec) Is last menstrual period known: No Post menopausal: Yes Patient : No : No PFSH Medical History Hx of colonic polyps Simple endometrial hyperplasia without atypia Wears dentures Wears glasses Back pain Dietary restriction History of IBS Gastric reflux Chronic cough History of stress test Bee sting Carpal tunnel syndrome of right wrist Depression Thyroid nodule Abnormal ultrasound of breast Acid reflux Asthma Diabetes Surgical History History of colonoscopy with polypectomy S/P D C (status post dilation and curettage) Hx of appendectomy History of laparoscopic cholecystectomy Family History Mother Breast cancer Arthritis Father Cancer Brain Social History household members: spouse current occupational status: retired Smoking Status: Never smoker alcohol intake: never substance use type: does not use caffeine: Yes what type of physical activity do you participate in: none seatbelt use: always do you feel safe at home: Yes additional social history: - Jose [facility] MEDICATION F/U Details: FRANKO SARMIENTO is a 63 year old who presents for follow up of hyperplasia. she saw rani and he did a biopsy and it was normal, no bleeidng or abnormal discharge, she is having some acute low back pain, wonders if she has a uti History 5 Elective abortions Hx Para 2 Spontaneous abortions 3 Hx # Term Pregnancies Ectopic pregnancies Hx # Pregnancies Multiple births # of living children Past Pregnancies Del. Date Name GA/Weeks Outcome Route Bth Weight Infant Gen Labor Lgth Anesthesia Del Locatn Provider FOB Unknown Madi Unknown Bautista ROS Const Constitutional: Reports system reviewed and no additional complaints, except as documented GI GI: Reports system reviewed and no additional complaints, except as documented Exam Const General: cooperative, healthy appearing, comfortable, no acute distress and well developed Orientation: alert HENMT Head: normal to inspection and normocephalic Ears: hearing grossly normal bilaterally and external ears normal Nose: external nose normal and nares normal Face and sinus: normal facial exam Neck Neck: normal visual inspection, no lymphadenopathy and trachea midline Thyroid: thyroid normal Resp Effort Inspection: normal respiratory effort Musc Other: gross motor intact no deficits, full bilateral strength Skin General: no rashes or lesions noted Neuro Motor: muscle tone normal throughout Coding Level of Care Code Off vis,est,level 3 Diagnoses Friable cervix N88.8 Pelvic pressure in female R10.2 Simple endometrial hyperplasia without atypia N85.01 Assessment and Plan Assessment and Plan (1) Friable cervix: Status: Acute Comment: s/p citrus fruit packer 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 Very blue, ecchymotic in appearance. Thin tissue, easily bleeds. Cervical stenosis (more content not included)... Normal [facility] Absolute lymphocyte countOrd ered By: Joel Jarake on 04-25-2023 Lymphocytes Auto (Unsp spec) [#/Vol] 2.39 10*3/uL 0.83-4.51 [facility] Automated lymphocyte count a s percentage of total leukocytesOrdered By: [facility] on 04-25-2023 Lymphocytes/100 WBC Auto (Unsp spec) 36.3 % 19-41 [facility] Basophil percentageOrdered B y: Joel [facility] on 04-25-2023 Basophils/100 WBC (Bld) 0.2 % 0-1 [facility] Bilirubin [Mass/Vol] 0.60 mg/dL 0.20-1.00 [facility] Comment on above: For patients on eltr ombopag therapy, use of Dimension [place] TBIL is not recommended. Chloride [Moles/Vol] 112 mmol/L 98-107 [facility] Cholesterol [Mass/Vol] 184 mg/dL <200 [facility] Comment on above: <200 mg/dL Desirable 200-240 mg/dL Borderline >240 mg/dL High Risk Eosinophils/100 WBC (Bld) 3.0 % 0-5 [facility] Glucose [Mass/Vol] 155 mg/dL 74-106 [facility] Comment on above: Fasting Glucose resu lt greater than or equal to 126 mg/dL suggests DIABETES MELLITUS per A.D.A. criteria. Hemoglobin (Bld) [Mass/Vol] 14.0 g/dL 12.0-15.0 [facility] Monocytes/100 WBC (Bld) 8.1 % 0-10 [facility] Neutrophils (Bld) [#/Vol] 3.4 10*3/uL 2.0-7.7 [facility] Neutrophils/100 WBC (Bld) 52.1 % 47-70 [facility] Potassium [Moles/Vol] 3.8 mmol/L 3.5-5.1 [facility] Protein [Mass/Vol] 7.0 g/dL 6.4-8.2 [facility] Sodium [Moles/Vol] 141 mmol/L 136-145 [facility] Triglyceride [Mass/Vol] 100 mg/dL <199 [facility] Comment on above: The drugs N-Acetylcy steine and Metamizole may falsely depress this assay.Serum Triglycerides Reference Interval Normal <150 mg/dL Borderline high 150 - 199 mg/dL High 200 - 499 mg/dL Very High > or = 500 mg/dL WBC (Bld) [#/Vol] 6.6 10*3/uL 4.4-11.0 [facility] Determination of erythrocyte mean corpuscular volume (MCV)Ordered By: Joel Gaston on 04-25-2023 MCV (RBC) [Entitic vol] 88.4 fL 81-99 [facility] Erythrocyte distribution wid th ratioOrdered By: [facility] on [facility]23 Erythrocyte distribution width (RBC) [Ratio] 13.2 % 11.6-14.6 [facility] Erythrocyte distribution wid th standard deviationOrdered By: [facility] on 04-25-2023 Erythrocyte distribution width (RBC) [Entitic vol] 42.8 fL 35.1-43.9 [facility] Hematocrit Auto (Bld) [Volum e fraction]Ordered By: [facility] on 04-25-2023 Hematocrit (Bld) [Volume fraction] 42.1 % 37-47 [facility] Immature granulocytes/100 WB C Auto (Bld)Ordered By: [facility] on 04-25-[facility]23 Immature granulocytes/100 WBC (Bld) 0.300 % 0.0-0.9 [facility] Comment on above: IG% - Immature Granu locytes (promyelocytes, myelocytes and metamyelocytes) > 1% indicates that a LEFT SHIFT is Present. Laboratory - Chemistry and C hemistry - challengeOrdered By: [facility] on 04-25-2023 Albumin/Globulin [Mass ratio] 1.3 {ratio} 0.9-2.4 [facility] ALP [Catalytic activity/Vol] 81 U/L 45-117 [facility] ALT [Catalytic activity/Vol] 31 U/L 13-56 [facility] Cholesterol in HDL [Mass/Vol] 45 mg/dL >40 [facility] Comment on above: The drugs N-Acetylcy steine and Metamizole may falsely depress this assay. Reference Range HDL <40 mg/dL Low HDL Cholesterol HDL >or= 60 mg/dL High HDL Cholesterol Cholesterol in LDL [Mass/Vol] 119 mg/dL 0-130 [facility] CO2 [Moles/Vol] 24.0 mmol/L 21.0-32.0 [facility] Cobalamin (Vitamin B12) [Mass/Vol] 409 pg/mL 211-911 [facility] Globulin (S) [Mass/Vol] 3.1 g/dL 2.2-4.2 [facility] Urea nitrogen/Creatinine [Mass ratio] 15.8 mg/mg 10-20 [facility] Laboratory - Hematology and Cell countsOrdered By: Joel Gaston on 04-25-2023 MCH (RBC) [Entitic mass] 29.4 pg 27.0-32.0 [facility] MCHC (RBC) [Mass/Vol] 33.3 g/dL 32-36 [facility] Nucleated RBC/100 WBC (Bld) [Ratio] 0 % 0-5 [facility] Platelet mean volume (Bld) [Entitic vol] 9.1 fL 6.2-12.0 [facility] Platelets (Bld) [#/Vol] 253 10*3/uL 150-450 [facility] No Panel InformationOrdered By: Joel Gaston on 04-25-2023 Estimated GFR (MDRD) Amer 109 mL/min >60 [facility] Comment on above: GFR Calc Estimated GFR (MDRD) Non-Af Amer 90 mL/min >60 [facility] Comment on above: Non- GFR Calc Folate 17.70 ng/mL 3.1-55.4 [facility] Urine Microalbumin/Creatinin e Ratio 15.5 mg/g CRE <30 [facility] Vitamin D 25-Hydroxy 38.0 ng/mL [facility] Comment on above: Vitamin D 25(OH) Sta tus Range Deficiency <20 ng/mL (50nmol/L) Insufficiency 20 - 30 ng/mL (50 - 75 nmol/L) Sufficiency 30 - 100 ng/mL (75 - 250 nmol/L) Toxicity >100 ng/mL (>250 nmol/L) VLDL Cholesterol 20 mg/dL 5-40 [facility] RBC Auto (Bld) [#/Vol]Ordere d By: Joel Gaston on 04-25-2023 RBC (Bld) [#/Vol] 4.76 10*6/uL 4.2-5.4 [facility] Serum or plasma calcium shantel urement (mass/volume)Ordered By: Joel Gaston on 04-25-2023 Calcium [Mass/Vol] 10.1 mg/dL 8.5-10.1 [facility] Serum or plasma creatinine m easurement (mass/volume)Ordered By: Joel Gaston on 04-25-2023 Creatinine [Mass/Vol] 0.70 mg/dL 0.55-1.02 [facility] Comment on above: The validity of the calculated GFR & GFRAA in patients over 70 years has not been determined. Clinical correlation is essential. Serum or plasma urea nitroge n measurement (mass/volume)Ordered By: Joel Gaston on 04-25-2023 Urea nitrogen [Mass/Vol] 11 mg/dL 7-18 [facility] Thin prep Papanicolaou smear with manual screeningOrdered By: Joel Gastno on 04-25-2023 Thin prep Papanicolaou smear with manual screening 3.9 g/dL 3.2-5.0 [facility] Thin prep Papanicolaou smear with manual screening 11 U/L 15-37 [facility] Thin prep Papanicolaou smear with manual screening 5 5-15 [facility] Thin prep Papanicolaou smear with manual screening 17.5 mg/L NO RANGE EST. [facility] Urine creatinine measurement (mass/volume)Ordered By: Joel Gaston on 04-25-2023 Creatinine (U) [Mass/Vol] 113.00 mg/dL NO RANGE EST. [facility] Whole blood hemoglobin A1c/t otal hemoglobin ratio (mass fraction)Ordered By: Joel Gaston on 04-25-2023 HbA1c (Bld) [Mass fraction] 6.4 % 3.8-5.6 [facility] Comment on above: Normal < 5.7 % Predi abetic 5.7 - 6.4 % Diabetic >or= 6.5 % Please note range changes. Glucose Glucometer (BldC) [M ass/Vol]Ordered By: Candice Ravi on 01-14-2023 Glucose [Mass/Vol] 64 mg/dL 74-106 [facility] Comment on above: MANAGEMENT OF PATIEN T CARE PER NURSING PROTOCOL Absolute lymphocyte countOrd ered By: Candice Ravi on 11-21-2022 Lymphocytes Auto (Unsp spec) [#/Vol] 2.43 10*3/uL 0.83-4.51 [facility] Basophil percentageOrdered B y: Candice Ravi on 11-21-2022 Basophils/100 WBC (Bld) 0.4 % 0-1 [facility] Bilirubin [Mass/Vol] 0.50 mg/dL 0.20-1.00 [facility] Comment on above: For patients on eltr ombopag therapy, use of Dimension [place] TBIL is not recommended. Chloride [Moles/Vol] 108 mmol/L 98-107 [facility] Eosinophils/100 WBC (Bld) 4.6 % 0-5 [facility] Glucose [Mass/Vol] 107 mg/dL 74-106 [facility] Comment on above: Fasting Glucose resu lt from 100 to 125 mg/dL suggests IMPAIRED HOMEOSTASIS per A.D.A. criteria. Neutrophils (Bld) [#/Vol] 4.0 10*3/uL 2.0-7.7 [facility] Neutrophils/100 WBC (Bld) 54.3 % 47-70 [facility] Potassium [Moles/Vol] 4.1 mmol/L 3.5-5.1 [facility] Protein [Mass/Vol] 7.3 g/dL 6.4-8.2 [facility] Sodium [Moles/Vol] 140 mmol/L 136-145 [facility] WBC (Bld) [#/Vol] 7.4 10*3/uL 4.4-11.0 [facility] Blood erythrocytes count (nu mber/volume)Ordered By: Candice Ravi on 11-21-2022 RBC (Bld) [#/Vol] 4.73 10*6/uL 4.2-5.4 [facility] Blood hemoglobin measurement (mass/volume)Ordered By: Candice Ravi on 11-21-2022 Hemoglobin (Bld) [Mass/Vol] 14.0 g/dL 12.0-15.0 [facility] Blood lymphocytes/100 leukoc ytesOrdered By: Candice Ravi on 11-21-2022 Lymphocytes/100 WBC (Bld) 32.8 % 19-41 [facility] Blood monocytes/100 leukocyt esOrdered By: Candice Ravi on 11-21-2022 Monocytes/100 WBC (Bld) 7.6 % 0-10 [facility] Blood platelet mean volumeOr dered By: Candice Ravi on 11-21-2022 Platelet mean volume (Bld) [Entitic vol] 8.8 fL 6.2-12.0 [facility] Culture, urineOrdered By: Mack Peres on 11-21-2022 Bacteria identified Cx Nom (U) Culture exhibits no growth. [facility] Bacteria identified Cx Nom (U) Culture exhibits no growth. [facility] Determination of erythrocyte mean corpuscular volume (MCV)Ordered By: Candice Ravi on 11-21-2022 MCV (RBC) [Entitic vol] 90.9 fL 81-99 [facility] Hematocrit Auto (Bld) [Volum e fraction]Ordered By: Candice Ravi on 11-21-2022 Hematocrit (Bld) [Volume fraction] 43.0 % 37-47 [facility] Laboratory - Chemistry and C hemistry - challengeOrdered By: Candice Ravi on 11-21-2022 ALP [Catalytic activity/Vol] 84 U/L 45-117 [facility] ALT [Catalytic activity/Vol] 25 U/L 13-56 [facility] CO2 [Moles/Vol] 29.0 mmol/L 21.0-32.0 [facility] Globulin (S) [Mass/Vol] 3.6 g/dL 2.2-4.2 [facility] Urea nitrogen/Creatinine [Mass ratio] 24.2 mg/mg 10-20 [facility] Laboratory - Chemistry and C hemistry - challengeon 10-12-2023 Bilirubin Ql (U) Negative [facility] Glucose Ql (U) Negative [facility] Ketones Ql (U) Trace (5) [facility] pH (U) 5 [pH] [facility] Specific gravity (U) [Rel density] 1.010 [facility] Urobilinogen (U) [Mass/Vol] Negative [facility] Laboratory - Hematology and Cell countsOrdered By: Candice Ravi on 11-21-2022 Erythrocyte distribution width (RBC) [Entitic vol] 42.0 fL 35.1-43.9 [facility] Erythrocyte distribution width (RBC) [Ratio] 12.7 % 11.6-14.6 [facility] Immature granulocytes/100 WBC (Bld) 0.300 % 0.0-0.9 [facility] Comment on above: IG% - Immature Granu locytes (promyelocytes, myelocytes and metamyelocytes) > 1% indicates that a LEFT SHIFT is Present. MCH (RBC) [Entitic mass] 29.6 pg 27.0-32.0 [facility] Nucleated RBC/100 WBC (Bld) [Ratio] 0 % 0-5 [facility] Laboratory - Hematology and Cell countson 11-21-2022 Hemoglobin Ql (U) Negative [facility] Laboratory - Specimen inform ationon 11-21-2022 Clarity (U) Clear [facility] Color (U) YELLOW [facility] Laboratory - Urinalysison Nitrite Ql (U) Negative [facility] Protein Ql (U) Negative [facility] MCHC Auto (RBC) [Mass/Vol]Or dered By: Candice Ravi on 11-21-2022 MCHC (RBC) [Mass/Vol] 32.6 g/dL 32-36 [facility] No Panel InformationOrdered By: Candice Ravi on 11-21-2022 Estimated GFR (MDRD) Amer 124 mL/min >60 [facility] Comment on above: GFR Calc Estimated GFR (MDRD) Non-Af Amer 103 mL/min >60 [facility] Comment on above: Non- GFR Calc No Panel Informationon 11-21 Urine Leukocytes Negatve [facility] Urine Non-Hemolyzed Blood Negative [facility] Platelets bldOrdered By: Ricardo Ravi on 11-21-2022 Platelets (Bld) [#/Vol] 247 10*3/uL 150-450 [facility] Serum or plasma albumin shantel urement (mass/volume)Ordered By: Candice Ravi on 11-21-2022 Albumin [Mass/Vol] 3.7 g/dL 3.2-5.0 [facility] Serum or plasma albumin/glob ulin mass ratioOrdered By: Candice Ravi on 11-21-2022 Albumin/Globulin [Mass ratio] 1.0 {ratio} 0.9-2.4 [facility] Serum or plasma calcium shantel urement (mass/volume)Ordered By: Candice Ravi on 11-21-2022 Calcium [Mass/Vol] 10.4 mg/dL 8.5-10.1 [facility] Serum or plasma creatinine m easurement (mass/volume)Ordered By: Candice Ravi on 11-21-2022 Creatinine [Mass/Vol] 0.62 mg/dL 0.55-1.02 [facility] Comment on above: The validity of the calculated GFR & GFRAA in patients over 70 years has not been determined. Clinical correlation is essential. Serum or plasma urea nitroge n measurement (mass/volume)Ordered By: Candice Ravi on 11-21-2022 Urea nitrogen [Mass/Vol] 15 mg/dL 7-18 [facility] Thin prep Papanicolaou smear with manual screeningOrdered By: Candice Ravi on 11-21-2022 Thin prep Papanicolaou smear with manual screening 10 U/L 15-37 [facility] Thin prep Papanicolaou smear with manual screening 3 5-15 [facility] Whole blood hemoglobin A1c/t otal hemoglobin ratio (mass fraction)Ordered By: Candice Ravi on 11-21-2022 HbA1c (Bld) [Mass fraction] 5.7 % 3.8-5.6 [facility] Comment on above: Normal < 5.7 % Predi abetic 5.7 - 6.4 % Diabetic >or= 6.5 % Please note range changes. Laboratory - Chemistry and C hemistry - challengeon 06-11-2022 Bilirubin Ql (U) Negative [facility] Glucose Ql (U) Negative [facility] Ketones Ql (U) Negative [facility] pH (U) 5.0 [pH] [facility] Specific gravity (U) [Rel density] 1.005 [facility] Urobilinogen (U) [Mass/Vol] Negative [facility] Laboratory - Hematology and Cell countson 06-11-2022 Hemoglobin Ql (U) Negative [facility] Laboratory - Specimen inform ationon 06-11-2022 Clarity (U) Clear [facility] Color (U) YELLOW [facility] Laboratory - Urinalysison Nitrite Ql (U) Negative [facility] Protein Ql (U) Negative [facility] No Panel Informationon 06-11 Urine Leukocytes Negatve [facility] Urine Non-Hemolyzed Blood [facility] Basophil percentageon 2021 Basophil percentage 0 SEEN /hpf 0-5 [facility] Work Phone: Bilirubin Test strip Ql (U)o n 10-03-2021 Bilirubin Ql (U) Negative Negative [facility] Work Phone: Ketones Test strip Ql (U)on 10-03-2021 Ketones Ql (U) Negative Negative [facility] Work Phone: Mucus LM Ql (Urine sed)on Mucus Ql (Urine sed) 0 SEEN /hpf [facility] Work Phone: Nitrite Test strip Ql (U)on 10-03-2021 Nitrite Ql (U) Negative Negative [facility] Work Phone: Protein Test strip Ql (U)on 10-03-2021 Protein Ql (U) Negative Negative [facility] Work Phone: Squamous epithelial cells de tection in urine sediment by light microscopyon 10-03-2021 Epithelial cells.squamous LM Ql (Urine sed) 0 SEEN /hpf 5-10 [facility] Work Phone: Urine blood detectionon 09-11 RBC Ql (U) Negative Negative [facility] Work Phone: RBC Ql (U) 0 SEEN /hpf 0-5 [facility] Work Phone: Urine clarityon 10-03-2021 Clarity (U) Clear Clear [facility] Work Phone: Urine color determinationon 10-03-2021 Color (U) Yellow Yellow [facility] Work Phone: Urine glucose detectionon Glucose Ql (U) Normal mg/dl Normal [facility] Work Phone: Urine leukocyte esterase det ection by dipstickon 10-03-2021 Leukocyte esterase Test strip Ql (U) 100 /ul Negative [facility] Work Phone: Urine pHon 10-03-2021 pH (U) 6.0 [pH] 5.0 - 8.0 [facility] Work Phone: Urine sediment bacteria coun t by microscopy (number/high power field)on 10-03-2021 Bacteria LM.HPF (Urine sed) [#/Area] 0 /[HPF] None Seen [facility] Work Phone: Urine specific gravity measu rementon 10-03-2021 Specific gravity (U) [Rel density] 1.010 1.002-1.030 [facility] Work Phone: Urobilinogen Auto test strip Ql (U)on 10-03-2021 Urobilinogen Ql (U) Normal mg/dl Normal [facility] Work Phone: Absolute lymphocyte counton 10-01-2021 Lymphocytes Auto (Unsp spec) [#/Vol] 1.86 10*3/uL 0.83-4.51 [facility] Work Phone: Basophil percentageon 2021 Basophils/100 WBC (Bld) 0.2 % 0-1 [facility] Work Phone: Bilirubin [Mass/Vol] 0.50 mg/dL 0.20-1.00 [facility] Work Phone: Comment on above: For patients on eltr ombopag therapy, use of Dimension [place] TBIL is not recommended. Chloride [Moles/Vol] 108 mmol/L 98-107 [facility] Work Phone: Cholesterol [Mass/Vol] 205 mg/dL <200 [facility] Work Phone: [phone] Comment on above: <200 mg/dL Desirable 200-240 mg/dL Borderline >240 mg/dL High Risk Eosinophils/100 WBC (Bld) 4.8 % 0-5 [facility] Work Phone: [phone] Glucose [Mass/Vol] 113 mg/dL 74-106 [facility] Work Phone: Comment on above: Fasting Glucose resu lt from 100 to 125 mg/dL suggests IMPAIRED HOMEOSTASIS per A.D.A. criteria. Neutrophils (Bld) [#/Vol] 2.8 10*3/uL 2.0-7.7 [facility] Work Phone: [phone] Neutrophils/100 WBC (Bld) 51.4 % 47-70 [facility] Work Phone: [phone] Potassium [Moles/Vol] 4.2 mmol/L 3.5-5.1 [facility] Work Phone: Protein [Mass/Vol] 7.0 g/dL 6.4-8.2 [facility] Work Phone: [phone] Sodium [Moles/Vol] 140 mmol/L 136-145 [facility] Work Phone: Triglyceride [Mass/Vol] 124 mg/dL <199 [facility] Work Phone: [phone] Comment on above: The drugs N-Acetylcy steine and Metamizole may falsely depress this assay.Serum Triglycerides Reference Interval Normal <150 mg/dL Borderline high 150 - 199 mg/dL High 200 - 499 mg/dL Very High > or = 500 mg/dL WBC (Bld) [#/Vol] 5.4 10*3/uL 4.4-11.0 [facility] Work Phone: Blood erythrocytes count (nu mber/volume)on 10-01-2021 RBC (Bld) [#/Vol] 4.62 10*6/uL 4.2-5.4 [facility] Work Phone: Blood hemoglobin measurement (mass/volume)on 10-01-2021 Hemoglobin (Bld) [Mass/Vol] 14.0 g/dL 12.0-15.0 [facility] Work Phone: Blood lymphocytes/100 leukoc yteson 10-01-2021 Lymphocytes/100 WBC (Bld) 34.2 % 19-41 [facility] Work Phone: Blood monocytes/100 leukocyt eson 10-01-2021 Monocytes/100 WBC (Bld) 9.2 % 0-10 [facility] Work Phone: Blood platelet mean volumeon 10-01-2021 Platelet mean volume (Bld) [Entitic vol] 9.2 fL 6.2-12.0 [facility] Work Phone: Determination of erythrocyte mean corpuscular volume (MCV)on 10-01-2021 MCV (RBC) [Entitic vol] 91.3 fL 81-99 [facility] Work Phone: Hematocrit Auto (Bld) [Volum e fraction]on 10-01-2021 Hematocrit (Bld) [Volume fraction] 42.2 % 37-47 [facility] Work Phone: Laboratory - Chemistry and C hemistry - challengeon 10-01-2021 ALP [Catalytic activity/Vol] 91 U/L 45-117 [facility] Work Phone: ALT [Catalytic activity/Vol] 24 U/L 13-56 [facility] Work Phone: CO2 [Moles/Vol] 25.0 mmol/L 21.0-32.0 [facility] Work Phone: Globulin (S) [Mass/Vol] 3.2 g/dL 2.2-4.2 [facility] Work Phone: Urea nitrogen/Creatinine [Mass ratio] 21.3 mg/mg 10-20 [facility] Work Phone: Laboratory - Hematology and Cell countson 10-01-2021 Erythrocyte distribution width (RBC) [Entitic vol] 44.1 fL 35.1-43.9 [facility] Work Phone: Erythrocyte distribution width (RBC) [Ratio] 13.2 % 11.6-14.6 [facility] Work Phone: Immature granulocytes/100 WBC (Bld) 0.200 % 0.0-0.9 [facility] Work Phone: Comment on above: IG% - Immature Granu locytes (promyelocytes, myelocytes and metamyelocytes) > 1% indicates that a LEFT SHIFT is Present. MCH (RBC) [Entitic mass] 30.3 pg 27.0-32.0 [facility] Work Phone: Nucleated RBC/100 WBC (Bld) [Ratio] 0 % 0-5 [facility] Work Phone: MCHC Auto (RBC) [Mass/Vol]on 10-01-2021 MCHC (RBC) [Mass/Vol] 33.2 g/dL 32-36 [facility] Work Phone: No Panel Informationon 10-01 Estimated GFR (MDRD) Amer 127 mL/min >60 [facility] Work Phone: Comment on above: GFR Calc Estimated GFR (MDRD) Non-Af Amer 105 mL/min >60 [facility] Work Phone: Comment on above: Non- GFR Calc Thyroid Stimulating Hormone (TSH) 1.24 uIU/mL 0.358-3.74 [facility] Work Phone: Vitamin D 25-Hydroxy 19.4 ng/mL [facility] Work Phone: Comment on above: Vitamin D 25(OH) Sta tus Range Deficiency <20 ng/mL (50nmol/L) Insufficiency 20 - 30 ng/mL (50 - 75 nmol/L) Sufficiency 30 - 100 ng/mL (75 - 250 nmol/L) Toxicity >100 ng/mL (>250 nmol/L) Platelets bldon 10-01-2021 Platelets (Bld) [#/Vol] 229 10*3/uL 150-450 [facility] Work Phone: Serum or plasma albumin shantel urement (mass/volume)on 10-01-2021 Albumin [Mass/Vol] 3.8 g/dL 3.2-5.0 [facility] Work Phone: Serum or plasma albumin/glob ulin mass ratioon 10-01-2021 Albumin/Globulin [Mass ratio] 1.2 {ratio} 0.9-2.4 [facility] Work Phone: Serum or plasma calcium shantel urement (mass/volume)on 10-01-2021 Calcium [Mass/Vol] 9.4 mg/dL 8.5-10.1 [facility] Work Phone: Serum or plasma cholesterol in HDL measurement (mass/volume)on 10-01-2021 Cholesterol in HDL [Mass/Vol] 56 mg/dL >40 [facility] Work Phone: Comment on above: The drugs N-Acetylcy steine and Metamizole may falsely depress this assay. Reference Range HDL <40 mg/dL Low HDL Cholesterol HDL >or= 60 mg/dL High HDL Cholesterol Serum or plasma cholesterol in VLDL measurement (mass/volume)on 10-01-2021 Cholesterol in VLDL [Mass/Vol] 25 mg/dL 5-40 [facility] Work Phone: Serum or plasma creatinine m easurement (mass/volume)on 10-01-2021 Creatinine [Mass/Vol] 0.61 mg/dL 0.55-1.02 [facility] Work Phone: Comment on above: The validity of the calculated GFR & GFRAA in patients over 70 years has not been determined. Clinical correlation is essential. Serum or plasma low density lipoprotein (LDL) cholesterol measurement (mass/volume)on 10-01-2021 Cholesterol in LDL [Mass/Vol] 124 mg/dL 0-130 [facility] Work Phone: Serum or plasma urea nitroge n measurement (mass/volume)on 10-01-2021 Urea nitrogen [Mass/Vol] 13 mg/dL 7-18 [facility] Work Phone: Thin prep Papanicolaou smear with manual screeningon 10-01-2021 Thin prep Papanicolaou smear with manual screening 13 U/L 15-37 [facility] Work Phone: Thin prep Papanicolaou smear with manual screening 7 5-15 [facility] Work Phone: Whole blood hemoglobin A1c/t otal hemoglobin ratio (mass fraction)on 10-01-2021 HbA1c (Bld) [Mass fraction] 6.0 % 3.8-5.6 [facility] Work Phone: Comment on above: Normal < 5.7 % Predi abetic 5.7 - 6.4 % Diabetic >or= 6.5 % Please note range changes. Absolute lymphocyte counton 01-18-2021 Lymphocytes Auto (Unsp spec) [#/Vol] 1.51 10*3/uL 0.83-4.51 [facility] Work Phone: Basophil percentageon 2020 Chloride [Moles/Vol] 105 mmol/L 98-107 [facility] Work Phone: Cholesterol [Mass/Vol] 225 mg/dL <200 [facility] Work Phone: Comment on above: <200 mg/dL Desirable 200-240 mg/dL Borderline >240 mg/dL High Risk Eosinophils/100 WBC (Bld) 3.0 % 0-5 [facility] Work Phone: Glucose [Mass/Vol] 269 mg/dL 74-106 [facility] Work Phone: Comment on above: Glucose result great er than or equal to 200 mg/dLsuggests DIABETES MELLITUS per A.D.A. criteria.Please note revised GLUCOSE reference range effective 2017. Neutrophils (Bld) [#/Vol] 5.9 10*3/uL 2.0-7.7 [facility] Work Phone: Potassium [Moles/Vol] 4.1 mmol/L 3.5-5.1 [facility] Work Phone: Sodium [Moles/Vol] 139 mmol/L 136-145 [facility] Work Phone: Triglyceride [Mass/Vol] 225 mg/dL [facility] Work Phone: Comment on above: The drugs N-Acetylcy steine and Metamizole may falsely depress this assay.Serum Triglycerides Reference Interval Normal <150 mg/dL Borderline high 150 - 199 mg/dL High 200 - 499 mg/dL Very High > or = 500 mg/dL WBC (Bld) [#/Vol] 8.4 10*3/uL 4.4-11.0 [facility] Work Phone: Blood erythrocytes count (nu mber/volume)on 01-18-2021 RBC (Bld) [#/Vol] 5.17 10*6/uL 4.2-5.4 [facility] Work Phone: Blood hemoglobin measurement (mass/volume)on 01-18-2021 Hemoglobin (Bld) [Mass/Vol] 15.1 g/dL 12.0-15.0 [facility] Work Phone: Blood lymphocytes/100 leukoc yteson 01-18-2021 Lymphocytes/100 WBC (Bld) 18.0 % 19-41 [facility] Work Phone: Blood monocytes/100 leukocyt eson 01-18-2021 Monocytes/100 WBC (Bld) 8.3 % 0-10 [facility] Work Phone: Blood platelet mean volumeon 01-18-2021 Platelet mean volume (Bld) [Entitic vol] 9.1 fL 6.2-12.0 [facility] Work Phone: Determination of erythrocyte mean corpuscular volume (MCV)on 01-18-2021 MCV (RBC) [Entitic vol] 90.5 fL 81-99 [facility] Work Phone: Hematocrit Auto (Bld) [Volum e fraction]on 01-18-2021 Hematocrit (Bld) [Volume fraction] 46.8 % 37-47 [facility] Work Phone: Laboratory - Chemistry and C hemistry - challengeon 01-18-2021 CO2 [Moles/Vol] 27.0 mmol/L 21.0-32.0 [facility] Work Phone: Urea nitrogen/Creatinine [Mass ratio] 20.8 mg/mg 10-20 [facility] Work Phone: Laboratory - Hematology and Cell countson 01-18-2021 Basophils/100 WBC (Unsp spec) 0.2 % 0-1 [facility] Work Phone: Erythrocyte distribution width (RBC) [Entitic vol] 41.9 fL 35.1-43.9 [facility] Work Phone: Erythrocyte distribution width (RBC) [Ratio] 12.6 % 11.6-14.6 [facility] Work Phone: Immature granulocytes/100 WBC (Bld) 0.400 % 0.0-0.9 [facility] Work Phone: Comment on above: IG% - Immature Granu locytes (promyelocytes, myelocytes and metamyelocytes) > 1% indicates that a LEFT SHIFT is Present. MCH (RBC) [Entitic mass] 29.2 pg 27.0-32.0 [facility] Work Phone: Neutrophils/100 WBC (Bld) 70.1 % 47-70 [facility] Work Phone: Nucleated RBC/100 WBC (Bld) [Ratio] 0 % 0-5 [facility] Work Phone: MCHC Auto (RBC) [Mass/Vol]on 01-18-2021 MCHC (RBC) [Mass/Vol] 32.3 g/dL 32-36 [facility] Work Phone: No Panel Informationon 01-18 Urine Microalbumin/Creatinin e Ratio 26.2 mg/g CRE <30 [facility] Work Phone: Estimated GFR (MDRD) Amer 124 mL/min >60 [facility] Work Phone: Comment on above: GFR Calc Estimated GFR (MDRD) Non-Af Amer 102 mL/min >60 [facility] Work Phone: Comment on above: Non- GFR Calc Platelets bldon 01-18-2021 Platelets (Bld) [#/Vol] 253 10*3/uL 150-450 [facility] Work Phone: Serum or plasma calcium shantel urement (mass/volume)on 01-18-2021 Calcium [Mass/Vol] 10.1 mg/dL 8.5-10.1 [facility] Work Phone: Serum or plasma cholesterol in HDL measurement (mass/volume)on 01-18-2021 Cholesterol in HDL [Mass/Vol] 56 mg/dL [facility] Work Phone: Comment on above: The drugs N-Acetylcy steine and Metamizole may falsely depress this assay. Reference Range HDL <40 mg/dL Low HDL Cholesterol HDL >or= 60 mg/dL High HDL Cholesterol Serum or plasma cholesterol in VLDL measurement (mass/volume)on 01-18-2021 Cholesterol in VLDL [Mass/Vol] 45 mg/dL 5-40 [facility] Work Phone: Serum or plasma creatinine m easurement (mass/volume)on 01-18-2021 Creatinine [Mass/Vol] 0.63 mg/dL 0.55-1.02 [facility] Work Phone: Comment on above: The validity of the calculated GFR & GFRAA in patients over 70 years has not been determined. Clinical correlation is essential. Serum or plasma low density lipoprotein (LDL) cholesterol measurement (mass/volume)on 01-18-2021 Cholesterol in LDL [Mass/Vol] 124 mg/dL 0-130 [facility] Work Phone: Serum or plasma urea nitroge n measurement (mass/volume)on 01-18-2021 Urea nitrogen [Mass/Vol] 13 mg/dL 7-18 [facility] Work Phone: Thin prep Papanicolaou smear with manual screeningon 01-18-2021 Thin prep Papanicolaou smear with manual screening 39.9 mg/L NO RANGE EST. [facility] Work Phone: Thin prep Papanicolaou smear with manual screening 7 5-15 [facility] Work Phone: Urine creatinine measurement (mass/volume)on 01-18-2021 Creatinine (U) [Mass/Vol] 152.00 mg/dL NO RANGE EST. [facility] Work Phone: Whole blood hemoglobin A1c/t otal hemoglobin ratio (mass fraction)on 01-18-2021 HbA1c (Bld) [Mass fraction] 9.4 % 3.8-5.6 [facility] Work Phone: Comment on above: Normal < 5.7 % Predi abetic 5.7 - 6.4 % Diabetic >or= 6.5 % Please note range changes. Culture, urine Bacteria identified Cx Nom (U) Culture exhibits no growth. [facility] Work Phone: Vital Signs Date Time Vital Sign Value Performing Clinician Faci lity 07-07-2024 13:19-040 Body height 170.18 cm Joel Gaston MD Work Phone: [facility] 07-07-2024 13:19-0400 Body mass index (BMI) [Ratio] 25.1 kg/m2 Joel Gaston MD Work Phone: [facility] 07-07-2024 13:19-040 Body weight 72.74 kg Joel Gaston MD Work Phone: [facility] 07-07-2024 13:19-0400 Diastolic blood pressure 69 mm[Hg] Joel Gaston MD Work Phone: [facility] 07-07-2024 13:19-0400 Systolic blood pressure 114 mm[Hg] Joel Gaston MD Work Phone: [facility] 06-07-2024 09:27-0400 Body mass index (BMI) [Ratio] 24.7 kg/m2 Joel Gaston MD Work Phone: [facility] 06-07-2024 09:27-0400 Body weight 71.66 kg Joel Gaston MD Work Phone: [facility] 04-12-2024 09:58-0500 Body temperature 97.5 [degF] Joel Gaston MD Work Phone: [facility] 04-12-2024 09:58-0500 Diastolic blood pressure 77 mm[Hg] Joel Gaston MD Work Phone: [facility] 04-12-2024 09:58-0500 Heart rate 61 /min Joel Gaston MD Work Phone: [facility] 04-12-2024 09:58-0500 Respiratory rate 16 /min Joel Gaston MD Work Phone: [facility] 04-12-2024 09:58-0500 SaO2% (BldA) [Mass fraction] 97 % Joel Gaston MD Work Phone: [facility] 04-12-2024 09:58-0500 Systolic blood pressure 106 mm[Hg] Joel Gaston MD Work Phone: [facility] 04-12-2024 08:23-0500 Body height 170.18 cm Joel Gaston MD Work Phone: [facility] 04-12-2024 08:23-0500 Body mass index (BMI) [Ratio] 24.9 kg/m2 Joel Gaston MD Work Phone: [facility] 04-12-2024 08:23-0500 Body weight 72.2 kg Joel Gaston MD Work Phone: [facility] 03-19-2024 09:36-0500 Body mass index (BMI) [Ratio] 24.9 kg/m2 Joel Gaston MD Work Phone: [facility] 03-19-2024 09:36-0500 Body weight 72.12 kg Joel Gaston MD Work Phone: [facility] 02-27-2024 14:24-0500 Body mass index (BMI) [Ratio] 24.9 kg/m2 Joel Gaston MD Work Phone: [facility] 02-27-2024 14:24-0500 Body weight 72.12 kg Joel Gaston MD Work Phone: [facility] 02-18-2024 11:17-0500 Body temperature 98.2 [degF] Joel Gaston MD Work Phone: [facility] 02-18-2024 11:17-0500 Diastolic blood pressure 66 mm[Hg] Joel Gaston MD Work Phone: [facility] 02-18-2024 11:17-0500 Heart rate 81 /min Joel Gaston MD Work Phone: [facility] 02-18-2024 11:17-0500 Respiratory rate 16 /min Joel Gaston MD Work Phone: [facility] 02-18-2024 11:17-0500 SaO2% (BldA) [Mass fraction] 96 % Joel Gaston MD Work Phone: [facility] 02-18-2024 11:17-0500 Systolic blood pressure 122 mm[Hg] Joel Gaston MD Work Phone: [facility] 01-31-2023 11:57-0500 Body temperature 97.8 [degF] Dr. Belle Miguel Work Phone: [facility] 01-31-2023 11:57-0500 Diastolic blood pressure 62 mm[Hg] Dr. Belle Miguel Work Phone: [facility] 01-31-2023 11:57-0500 Heart rate 79 /min Dr. Belle Miguel Work Phone: [facility] 01-31-2023 11:57-0500 Respiratory rate 17 /min Dr. Belle Miguel Work Phone: [facility] 01-31-2023 11:57-0500 SaO2% (BldA) [Mass fraction] 97 % Dr. Belle Miguel Work Phone: [facility] 01-31-2023 11:57-0500 Systolic blood pressure 132 mm[Hg] Dr. Belle Miguel Work Phone: [facility] 01-27-2023 11:04-0500 Body height 167.[address] Belle Miguel Work Phone: [facility] 01-27-2023 11:03-0500 Body mass index (BMI) [Ratio] 24.7 kg/m2 Dr. Belle Miguel Work Phone: [facility] 01-27-2023 11:03-0500 Body weight 69.[address] Belle Miguel Work Phone: [facility] 01-27-2023 11:03-0500 Diastolic blood pressure 80 mm[Hg] Dr. Belle Miguel Work Phone: [facility] 01-27-2023 11:03-0500 Systolic blood pressure 128 mm[Hg] Dr. Belle Miguel Work Phone: [facility] 01-14-2023 17:30-0500 Body temperature 97.8 [degF] Dr. Belle Miguel Work Phone: [facility] 01-14-2023 17:30-0500 Diastolic blood pressure 74 mm[Hg] Dr. Belle Miguel Work Phone: [facility] 01-14-2023 17:30-0500 Heart rate 62 /min Dr. Belle Miguel Work Phone: [facility] 01-14-2023 17:30-0500 Respiratory rate 14 /min Dr. Belle Miguel Work Phone: [facility] 01-14-2023 17:30-0500 SaO2% (BldA) [Mass fraction] 95 % Dr. Belle Miguel Work Phone: [facility] 01-14-2023 17:30-0500 Systolic blood pressure 124 mm[Hg] Dr. Belle Miguel Work Phone: [facility] 01-14-2023 13:21-0500 Body height 167.[address] Belle Miguel Work Phone: [facility] 01-14-2023 13:21-0500 Body mass index (BMI) [Ratio] 25.2 kg/m2 Dr. Belle Miguel Work Phone: [facility] 01-14-2023 13:21-0500 Body weight 70.[address] Belle Miguel Work Phone: [facility] 11-21-2022 11:17-0400 Body height 167.[address] Belle Miguel Work Phone: [facility] 11-21-2022 11:17-0400 Body temperature 97.5 [degF] Dr. Belle Miguel Work Phone: [facility] 11-21-2022 11:14-0400 Body mass index (BMI) [Ratio] 25 kg/m2 Dr. Belle Miguel Work Phone: [facility] 11-21-2022 11:14-0400 Body weight 70.[address] Belle Miguel Work Phone: [facility] 11-21-2022 11:14-0400 Diastolic blood pressure 70 mm[Hg] Dr. Belle Miguel Work Phone: [facility] 11-21-2022 11:14-0400 Systolic blood pressure 110 mm[Hg] Dr. Belle Miguel Work Phone: [facility] 08-28-2022 13:06-0400 Body height 167.[address] Belle Miguel Work Phone: [facility] 08-28-2022 13:02-0400 Body mass index (BMI) [Ratio] 25.4 kg/m2 Dr. Belle Miguel Work Phone: [facility] 08-28-2022 13:02-0400 Body weight 71.[address] Belle Miguel Work Phone: [facility] 08-28-2022 13:02-0400 Diastolic blood pressure 76 mm[Hg] Dr. Belle Miguel Work Phone: [facility] 08-28-2022 13:02-0400 Systolic blood pressure 120 mm[Hg] Dr. Belle Miguel Work Phone: [facility] 06-11-2022 10:13-0400 Body height 167.[address] Belle Miguel Work Phone: [facility] 06-11-2022 10:06-0400 Body mass index (BMI) [Ratio] 26 kg/m2 Dr. Belle Miguel Work Phone: [facility] 06-11-2022 10:06-0400 Body weight 73.[address] Belle Miguel Work Phone: [facility] 06-11-2022 10:06-0400 Diastolic blood pressure 68 mm[Hg] Dr. Belle Miguel Work Phone: [facility] 06-11-2022 10:06-0400 Systolic blood pressure 124 mm[Hg] Dr. Belle Miguel Work Phone: [facility] 2022 10:22-0500 Body temperature 97.1 [degF] Dr. Armando Gómez Work Phone: [facility] 2022 10:22-0500 Body weight 72.[address] Armando Gómez Work Phone: [facility] 2022 10:22-0500 Diastolic blood pressure 77 mm[Hg] Dr. Armando Gómez Work Phone: [facility] 2022 10:22-0500 Heart rate 95 /min Dr. Armando Gómez Work Phone: [facility] 2022 10:22-0500 Respiratory rate 16 /min Dr. Armando Gómez Work Phone: [facility] 2022 10:22-0500 SaO2% (BldA) [Mass fraction] 96 % Dr. Armando Gómez Work Phone: [facility] 2022 10:22-0500 Systolic blood pressure 107 mm[Hg] Dr. Armando Gómez Work Phone: [facility] 10-03-2021 10:00-0400 Body height 167.[address] Belle Miguel Work Phone: [facility] Work Phone: 10-03-2021 10:00-0400 Body mass index (BMI) [Ratio] 25.5 kg/m2 Dr. Belle Miguel Work Phone: [facility] Work Phone: 10-03-2021 10:00-0400 Body temperature 97.5 [degF] Dr. Belle Miguel Work Phone: [facility] Work Phone: 10-03-2021 10:00-0400 Body weight 71.[address] Belle Miguel Work Phone: [facility] Work Phone: 10-03-2021 10:00-0400 Diastolic blood pressure 68 mm[Hg] Dr. Belle Miguel Work Phone: [facility] Work Phone: 10-03-2021 10:00-0400 Heart rate 73 /min Dr. Belle Miguel Work Phone: [facility] Work Phone: 10-03-2021 10:00-0400 Respiratory rate 18 /min Dr. Belle Miguel Work Phone: [facility] Work Phone: 10-03-2021 10:00-0400 Systolic blood pressure 120 mm[Hg] Dr. Belle Miguel Work Phone: [facility] Work Phone: 09-26-2021 11:28-0400 Body mass index (BMI) [Ratio] 25.7 kg/m2 Dr. Belle Miguel Work Phone: [facility] Work Phone: 09-26-2021 11:28-0400 Body weight 72.[address] Belle Miguel Work Phone: [facility] Work Phone: 09-26-2021 11:28-0400 Diastolic blood pressure 70 mm[Hg] Dr. Belle Miguel Work Phone: [facility] Work Phone: 09-26-2021 11:28-0400 Systolic blood pressure 110 mm[Hg] Dr. Belle Miguel Work Phone: [facility] Work Phone: 08-30-2021 11:51-0400 Body temperature 98.4 [degF] Dr. Belle Miguel Work Phone: [facility] Work Phone: 08-30-2021 11:51-0400 Diastolic blood pressure 72 mm[Hg] Dr. Belle Miguel Work Phone: [facility] Work Phone: 08-30-2021 11:51-0400 Heart rate 86 /min Dr. Belle Miguel Work Phone: [facility] Work Phone: 08-30-2021 11:51-0400 Respiratory rate 14 /min Dr. Belle Miguel Work Phone: [facility] Work Phone: 08-30-2021 11:51-0400 SaO2% (BldA) [Mass fraction] 98 % Dr. Belle Miguel Work Phone: [facility] Work Phone: 08-30-2021 11:51-0400 Systolic blood pressure 124 mm[Hg] Dr. Belle Miguel Work Phone: [facility] Work Phone: 04-30-2021 12:16-0400 Body height 167.[address] Armando Gómez Work Phone: [facility] Work Phone: 04-30-2021 12:16-0400 Body mass index (BMI) [Ratio] 26.4 kg/m2 Dr. Armando Gómez Work Phone: [facility] Work Phone: 04-30-2021 12:16-0400 Body temperature 97.4 [degF] Dr. Armando Gómez Work Phone: [facility] Work Phone: 04-30-2021 12:16-0400 Body weight 74.[address] Armando Gómez Work Phone: [facility] Work Phone: 04-30-2021 12:16-0400 Diastolic blood pressure 84 mm[Hg] Dr. Armando Gómez Work Phone: [facility] Work Phone: 04-30-2021 12:16-0400 Heart rate 80 /min Dr. Armando Gómez Work Phone: [facility] Work Phone: 04-30-2021 12:16-0400 Respiratory rate 16 /min Dr. Armando Gómez Work Phone: [facility] Work Phone: 04-30-2021 12:16-0400 SaO2% (BldA) [Mass fraction] 97 % Dr. Armando Gómez Work Phone: [facility] Work Phone: 04-30-2021 12:16-0400 Systolic blood pressure 124 mm[Hg] Dr. Armando Gómez Work Phone: [facility] Work Phone: 03-28-2021 08:11-0500 Body mass index (BMI) [Ratio] 26.9 kg/m2 Dr. Armando Gómez Work Phone: [facility] Work Phone: 03-28-2021 08:11-0500 Body temperature 97.5 [degF] Dr. Armando Gómez Work Phone: [facility] Work Phone: 03-28-2021 08:11-0500 Body weight 75.[address] Armando Gómez Work Phone: [facility] Work Phone: 03-28-2021 08:11-0500 Diastolic blood pressure 78 mm[Hg] Dr. Armando Gómez Work Phone: [facility] Work Phone: 03-28-2021 08:11-0500 Heart rate 96 /min Dr. Armando Gómez Work Phone: [facility] Work Phone: 03-28-2021 08:11-0500 Respiratory rate 16 /min Dr. Armando Gómez Work Phone: [facility] Work Phone: 03-28-2021 08:11-0500 SaO2% (BldA) [Mass fraction] 97 % Dr. Armando Gómez Work Phone: [facility] Work Phone: 03-28-2021 08:11-0500 Systolic blood pressure 140 mm[Hg] Dr. 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 Pandya STILL OPERATOR [facility] Start: 07-07-2024 End: 07-07-2024 ambulatory Joel Gaston MD Work Phone: [facility] Work Phone: Start: 06-07-2024 End: 06-07-2024 Patient encounter procedure Cris JOHNSON -[facility] Work Phone: Start: 06-07-2024 End: 06-07-2024 ambulatory Joel Gaston Facility:[facility] Start: 05-22-2024 End: 05-22-2024 ambulatory Joel Gaston MD Work Phone: [facility] Work Phone: Start: 05-22-2024 End: 05-22-2024 Patient encounter procedure Cris JOHNSON -[facility] Work Phone: Start: 05-22-2024 End: 05-22-2024 ambulatory Joel Gaston Facility:[facility] Start: 04-12-2024 Non-patient / Non-visit Dr. Josep Rodriguez MD -[facility] Start: 04-12-2024 End: 04-12-2024 Admission to same day surgery center Dr. Ashley Rodriguez MD -Endoscopy Work Phone: Start: 04-12-2024 End: 04-12-2024 ambulatory Ashley Rodriguez Facility:[facility] Start: 03-19-2024 End: 03-19-2024 Patient encounter procedure Cris JOHNSON -[facility] Work Phone: Start: 03-19-2024 End: 03-19-2024 ambulatory Chalon Laek Facility:[facility] Start: 02-27-2024 Non-patient / Non-visit Joel Gaston MD Work Phone: -[facility] Work Phone: Start: 02-27-2024 ambulatory Chalon Alek Facility:[facility] Start: 02-27-2024 End: 02-27-[address] Joel Gaston MD -Radiology, [place] Work Phone: Start: 02-27-2024 End: 02-27-2024 ambulatory Chalon Alek Facility:[facility] Start: 02-18-2024 End: 02-18-2024 Patient encounter procedure Riley JOHNSON -[facility] Work Phone: Start: 02-18-2024 End: 02-18-2024 ambulatory Chalon Alek Facility:[facility] Start: 02-06-2024 End: 02-06-[address] Brit Blount DO -[facility] Work Phone: Start: 02-06-2024 End: 02-06-2024 ambulatory Chalon Alek Facility:[facility] Start: 2024 End: 2024 ambulatory Chalon Alek Facility:[facility] Start: 2024 End: 2024 ambulatory Chalon Alek Facility:[facility] Start: 12-17-2023 End: 12-17-2023 ambulatory Chalon Alek Facility:[facility] Start: 12-17-2023 End: 12-17-2023 ambulatory Chalon Alek Facility:[facility] Start: 10-08-2023 End: 10-08-2023 ambulatory Chalon Alek Facility:[facility] Start: 10-06-2023 End: 10-06-2023 ambulatory Chalon Alek Facility:[facility] Start: 09-17-2023 ambulatory Himanshu Yoav Facility :[facility] Start: 09-03-2023 End: 09-03-2023 ambulatory Chalon Alek Facility:[facility] [place] Start: 09-02-2023 End: 09-03-2023 ambulatory [facility] Facility:[facility] Start: 04-25-2023 End: 04-25-[address] Belle Miguel Work Phone: [facility] Work Phone: Start: 04-25-2023 End: 04-25-[address] Belle Miguel Work Phone: [facility] Work Phone: Start: 01-31-2023 End: 01-31-[address] Belle Miguel Work Phone: [facility] Work Phone: Start: 01-27-2023 End: 01-27-[address] Belle Miguel Work Phone: [facility] Work Phone: Start: 01-14-2023 End: 01-14-2023 Admission to same day surgery center Dr. Belle Miguel Work Phone: [facility] Start: 01-14-2023 End: 01-14-[address] Belle Miguel Work Phone: [facility] Work Phone: Start: 01-14-2023 Non-patient / Non-visit Dr. Didi Miguel Work Phone: [facility] Start: 01-08-2023 End: 01-08-2023 Non-patient / Non-visit Dr. Belle Miguel Work Phone: [facility] Work Phone: Start: 11-21-2022 End: 11-21-[address] Belle Miguel Work Phone: [facility] Work Phone: Start: 11-21-2022 End: 11-21-[address] Belle Miguel Work Phone: [facility]-Laboratory Work Phone: Start: 11-21-2022 End: 11-21-[address] Belle Miguel Work Phone: [facility] Work Phone: Start: 10-30-2022 End: 10-30-[address] Belle Miguel Work Phone: [facility] Work Phone: Start: 10-30-2022 End: 10-30-[address] Belle Miguel Work Phone: [facility], [facility] Work Phone: Start: 08-28-2022 End: 08-28-[address] [facility] Work [facility]: Start: 08-28-2022 End: 08-28-[address] Belle Miguel Work Phone: [facility] Work Phone: Start: 08-14-2022 End: 08-14-[address] Belle Miguel Work Phone: [facility] Work Phone: Start: 08-14-2022 End: 08-14-[address] Belle Miguel Work Phone: [facility]-Ultrasound, [facility] Work Phone: Start: 07-03-2022 End: 07-03-[address] Belle Miguel Work Phone: [facility] Work Phone: Start: 07-03-2022 End: 07-03-[address] Belle Miguel Work Phone: [facility]-Ultrasound, [facility] Start: 06-11-2022 End: 06-11-[address] Belle Miguel Work Phone: [facility] Start: 02-20-2022 End: 02-20-[address] Belle Miguel Work Phone: [facility] Work Phone: Start: 02-20-2022 End: 02-20-[address] Belle Miguel Work Phone: [facility]-MRI - [facility] Start: 2022 End: [address] Armando Gómez Work Phone: [facility] [place] Start: 11-14-2021 End: 11-14-[address] Armando Gómez Work Phone: [facility] Work Phone: Start: 11-14-2021 End: 11-14-[address] Armando Gómez Work Phone: [facility]-Physical Therapy Start: 10-05-2021 End: 10-05-[address] Belle Miguel Work Phone: [facility] Work Phone: Start: 10-05-2021 End: 10-05-[address] Belle Miguel Work Phone: [facility]-Radiology, [facility] Start: 10-03-2021 Non-patient / Non-visit Dr. Didi Miguel Work Phone: [facility] Internal Medicine Start: 10-03-2021 End: 10-03-[address] Belle Miguel Work Phone: [facility] Work Phone: Start: 10-03-2021 End: 10-03-[address] Belle Miguel Work Phone: [facility] Start: 10-01-2021 End: 10-01-[address] Belle Miguel Work Phone: [facility] Work Phone: Start: 10-01-2021 End: 10-01-[address] Belle Miguel Work Phone: [facility]-Laboratory, [place] Start: 09-26-2021 End: 09-26-[address] Belle Miguel Work Phone: [facility] Start: 08-30-2021 End: 08-30-[address] Belle Miguel Work Phone: [facility] Start: 05-04-2021 Non-patient / Non-visit Dr. Elizabeth Gómez Work Phone: [facility] Start: 05-04-2021 End: 05-04-[address] Armando Gómez Work Phone: [facility]-Breast Imaging - Biopsy/[place] Start: 04-30-2021 End: 04-30-[address] Armando Gómez Work Phone: [facility] Start: 04-20-2021 End: 04-20-[address] Armando Gómez Work Phone: [facility]-Outpatient Breast Imaging Start: 04-19-2021 Non-patient / Non-visit Dr. Elizabeth Gómez Work Phone: [facility] Start: 03-28-2021 End: 03-28-[address] Armando Gómez Work Phone: [facility] Start: 01-18-[address] Armando Gómez Work Phone: [facility] Procedures Date Procedure Procedure Detail Performing Clinician Start: 05-22-2024 MRI of thoracic spine C thompson Gaston MD Work Phone: Start: 02-27-2024 Xray thoracic spine Nuria Gaston MD Work Phone: Start: 02-06-2024 Pelvic echography Juan Gaston MD Work Phone: Start: 01-14-2023 Hysteroscopy,D&C Sym phion (Not Applicable) Dr. Belle Miguel Work Phone: Start: 11-21-[address] Belle Miguel Work Phone: Start: 10-30-[address] Belle Miguel Work Phone: Start: 10-30-[address] Toyin Miguel Work Phone: Start: 08-14-[address] Toyin Miguel Work Phone: Start: 07-03-[address] Toyin Miguel Work Phone: Start: 07-03-[address] Belle Miguel Work Phone: Start: 02-20-2022 MRI of thoracic spine Dexter Miguel Work Phone: Start: 10-05-2021 Radiography of thora cic spine Dr. Belle Miguel Work Phone: Start: 05-04-[address] Elizabeth Gómez Work Phone: Start: 04-20-2021 Screening mammography Dexter Gómez Work Phone: Urine culture Dr. Belle iverson Work Phone: Plan of Treatment Date Care Activity Detail Author Start: 04-12-2024 Colonoscopy w/biopsy single/multiple COLONOSCOPY AND BIOPSY [facility] Start: 04-12-2024 Patient discharge [facility] Start: 03-19-2024 Patient referral [facility] Work Phone: Start: 01-14-2023 Ambulation without limitation [facility] Start: 01-14-2023 Medical regimen orders management [facility] Start: 01-14-2023 Medication education [facility] Start: 01-14-2023 Patient discharge [facility] Start: 01-14-2023 Taking patient vital signs [facility] Start: 01-14-2023 Vital signs measurements [facility] Start: 01-14-2023 [facility] Start: 01-14-2023 Anes hysteroscopy&/hysterosal pingography w/bx ANESTH HYSTEROSCOPE/GRAPH [facility] Start: 01-14-2023 Hysteroscopy bx endometrium&/polypc w/wo d&c HYSTEROSCOPY BIOPSY [facility] Start: 10-03-2021 Patient referral [facility] Work Phone: Start: 10-03-2021 [facility] Work Phone: Start: 03-28-2021 Patient referral [facility] Work Phone: MG Breast - bilatera l Diagnostic [facility] Patient Education Stereotactic B reast Biopsy Discharge Instructions [facility] Work Phone: Patient referral [facility] Work Phone: Urine culture Urine Culture [facility] Work Phone: US Breast limited [facility] US Pelvis [facility] XR Thoracic spine 4 Views [facility] Work Phone: [facility] Immunizations Immunization Date Immunization Notes Care Provider Fa cili 06-06-2020 diphtheria, tetanus toxoids and acellular pertussis vaccine, unspecified formulation Dr. Armando Gómez Work Phone: [facility] Work Phone: 06-06-2020 tetanus toxoid, redu yolie diphtheria toxoid, and acellular pertussis vaccine, adsorbed Dr. Armando Gómez Work Phone: [facility] 05-16-2020 Covid (Pfizer) Dr. Armando velasquez Work Phone: [facility] 04-25-2020 Covid (Pfizer) Dr. Armando velasquez Work Phone: [facility] Payers Date Payer Category Payer Private Health Insurance [facility] [id number] 2023 Unknown [id number] 2023 Self-pay [id number] 2023 Medicare [id number] 2023 Unknown [id number] 2016 Unknown [id number] Unknown [id number] Unknown [id number] Unknown [address] [id number] Unknown [id number] Unknown [id number] [id number] Unknown [id number] Unknown [id number] 2.0.1.578462.3.579.2.462 Unknown [id number] 2.16840.1.660793.3.579.2.462 Unknown [id number] 2.16840.1.764349.3.579.2.462 Unknown [id number] 2.16840.1.713417.3.579.2.462 Unknown [id number] 2.16840.1.851953.3.579.2.462 Unknown [id number] 2.840.1.969707.3.579.2.462 Unknown [id number] 2.840.1.092193.3.579.2.462 Unknown [id number] 2.840.1.951775.3.579.2.462 Unknown [id number] 2.840.1.925759.3.579.2.462 Unknown [id number] 2.840.1.192650.3.579.2.462 Unknown [id number] 2.840.1.726937.3.579.2.462 Unknown [id number] 2.840.1.328668.3.579.2.462 Unknown [id number] 2.840.1.197788.3.579.2.462 Unknown [id number] 2.840.1.032854.3.579.2.462 Unknown [id number] 2.840.1.069801.3.579.2.462 Unknown [id number] 2.840.1.362478.3.579.2.462 Unknown [id number] 2.840.1.175971.3.579.2.462 Unknown [id number] 2.840.1.851825.3.579.2.462 Unknown [id number] [id number] Social History Date Type Detail Facility Start: 04-30-2021 End: 01-31-2023 Tobacco smoking status NHIS Unknown if ever smoked [facility] Start: 1960 Sex Assigned At Female [facility] Start: 04-12-2024 End: 06-04-2024 Tobacco smoking status NHIS Never smoked tobacco (finding) [facility] Start: 05-26-2024 Sex Female (finding) [facility] NEGATED: Highlighted row Not [facility] Medical Equipment Procedure Code Equipment Code Equipment Origin al Text Equipment Identifier Dates Blood Sugar Diagnostic (Blood Glucose Test) strip Start: 04-02-2021 Lancets Start: 03-30-2021 Blood Sugar Diagnostic (Blood Glucose Test) strip Start: 03-28-2021 End: 03-30-2021 Blood Sugar Diagnostic (Blood Glucose Test) strip Start: 03-30-2021 End: 04-02-2021 Lancets Start: 03-28-2021 End: 03-30-2021 Blood Sugar Diagnostic (Blood Glucose Test) strip Start: 04-02-2021 Lancets Start: 03-30-2021 Blood Sugar Diagnostic (Blood Glucose Test) strip Start: 03-28-2021 End: 03-30-2021 Blood Sugar Diagnostic (Blood Glucose Test) strip Start: 03-30-2021 End: 04-02-2021 Lancets Start: 03-28-2021 End: 03-30-2021 Blood Sugar Diagnostic (Blood Glucose Test) strip Start: 04-02-2021 Lancets Start: 03-30-2021 Blood Sugar Diagnostic (Blood Glucose Test) strip Start: 03-28-2021 End: 03-30-2021 Blood Sugar Diagnostic (Blood Glucose Test) strip Start: 03-30-2021 End: 04-02-2021 Lancets Start: 03-28-2021 End: 03-30-2021 Blood Sugar Diagnostic (Blood Glucose Test) strip Start: 04-02-2021 Lancets Start: 03-30-2021 Blood Sugar Diagnostic (Blood Glucose Test) strip Start: 03-28-2021 End: 03-30-2021 Blood Sugar Diagnostic (Blood Glucose Test) strip Start: 03-30-2021 End: 04-02-2021 Lancets Start: 03-28-2021 End: 03-30-2021 Blood Sugar Diagnostic (Blood Glucose Test) strip Start: 04-02-2021 Lancets Start: 03-30-2021 Blood Sugar Diagnostic (Blood Glucose Test) strip Start: 03-28-2021 End: 03-30-2021 Blood Sugar Diagnostic (Blood Glucose Test) strip Start: 03-30-2021 End: 04-02-2021 Lancets Start: 03-28-2021 End: 03-30-2021 Blood Sugar Diagnostic (Blood Glucose Test) strip Start: 04-02-2021 Lancets Start: 03-30-2021 Blood Sugar Diagnostic (Blood Glucose Test) strip Start: 03-28-2021 End: 03-30-2021 Blood Sugar Diagnostic (Blood Glucose Test) strip Start: 03-30-2021 End: 04-02-2021 Lancets Start: 03-28-2021 End: 03-30-2021 Blood Sugar Diagnostic (Blood Glucose Test) strip Start: 04-02-2021 Lancets Start: 03-30-2021 Blood Sugar Diagnostic (Blood Glucose Test) strip Start: 03-28-2021 End: 03-30-2021 Blood Sugar Diagnostic (Blood Glucose Test) strip Start: 03-30-2021 End: 04-02-2021 Lancets Start: 03-28-2021 End: 03-30-2021 Blood Sugar Diagnostic (Blood Glucose Test) strip Start: 04-02-2021 Lancets Start: 03-30-2021 Blood Sugar Diagnostic (Blood Glucose Test) strip Start: 03-28-2021 End: 03-30-2021 Blood Sugar Diagnostic (Blood Glucose Test) strip Start: 03-30-2021 End: 04-02-2021 Lancets Start: 03-28-2021 End: 03-30-2021 Blood Sugar Diagnostic (Blood Glucose Test) strip Start: 04-02-2021 Lancets Start: 03-30-2021 Blood Sugar Diagnostic (Blood Glucose Test) strip Start: 03-28-2021 End: 03-30-2021 Blood Sugar Diagnostic (Blood Glucose Test) strip Start: 03-30-2021 End: 04-02-2021 Lancets Start: 03-28-2021 End: 03-30-2021 Blood Sugar Diagnostic (Blood Glucose Test) strip Start: 04-02-2021 Lancets Start: 03-30-2021 Blood Sugar Diagnostic (Blood Glucose Test) strip Start: 03-28-2021 End: 03-30-2021 Blood Sugar Diagnostic (Blood Glucose Test) strip Start: 03-30-2021 End: 04-02-2021 Lancets Start: 03-28-2021 End: 03-30-2021 Blood Sugar Diagnostic (Blood Glucose Test) strip Start: 04-02-2021 Lancets Start: 03-30-2021 Blood Sugar Diagnostic (Blood Glucose Test) strip Start: 03-28-2021 End: 03-30-2021 Blood Sugar Diagnostic (Blood Glucose Test) strip Start: 03-30-2021 End: 04-02-2021 Lancets Start: 03-28-2021 End: 03-30-2021 Blood Sugar Diagnostic (Blood Glucose Test) strip Start: 04-02-2021 Lancets Start: 03-30-2021 Blood Sugar Diagnostic (Blood Glucose Test) strip Start: 03-28-2021 End: 03-30-2021 Blood Sugar Diagnostic (Blood Glucose Test) strip Start: 03-30-2021 End: 04-02-2021 Lancets Start: 03-28-2021 End: 03-30-2021 Blood Sugar Diagnostic (Blood Glucose Test) strip Start: 04-02-2021 Lancets 21 gauge misc Start: 03-30-2021 Blood Sugar Diagnostic (Blood Glucose Test) strip Start: 03-28-2021 End: 03-30-2021 Blood Sugar Diagnostic (Blood Glucose Test) strip Start: 03-30-2021 End: 04-02-2021 Lancets 21 gauge misc Start: 03-28-2021 End: 03-30-2021 Blood Sugar Diagnostic (Blood Glucose Test) strip Start: 04-02-2021 Lancets 21 gauge misc Start: 03-30-2021 Blood Sugar Diagnostic (Blood Glucose Test) strip Start: 03-28-2021 End: 03-30-2021 Blood Sugar Diagnostic (Blood Glucose Test) strip Start: 03-30-2021 End: 04-02-2021 Lancets 21 gauge misc Start: 03-28-2021 End: 03-30-2021 Goals Date Patient Goal Desired Activity /State Mental Status Date Assessment Result Facility 04-12-2024 Cognitive function Voice/Name [facility] Work Phone: 04-12-2024 Cognitive function Patient Azam boyce Person;Place;Time [facility] Work Phone: 01-14-2023 Cognitive function Voice/Name [facility] Work Phone: Clinical Notes 01-14-2023 to 04-12-2024 Note Date & Type Note Facility 04-12-2024 Note [facility] Medical Records Department [address] [place] [address] History Physical Exam 04/12/24 0833 MR#: [id number] Acct: [id number] Name: FRANKO SARMIENTO Rep #: [id number] : 1960 64 From: Ashley Rodriguez MD PCP: Dr. Joel Gaston MD Status:REG [facility] Location: EN HPI - General General Date of Service: 04/12/24 HPI Narrative FRANKO SARMIENTO, is a 64 F who presents for screening colonoscopy. Patient denies any family history of colon cancer. Patient last colonoscopy was 5 years ago and [place] had polyps at that time. Patient has bowel movements daily denies any blood. Patient denies any chronic abdominal pain/nausea/vomiting/reflux. [facility] Medical History Hx of colonic polyps Simple endometrial hyperplasia without atypia Wears dentures Wears glasses Back pain Dietary restriction History of IBS Gastric reflux Chronic cough History of stress test Bee sting Carpal tunnel syndrome of right wrist Depression Thyroid nodule Abnormal ultrasound of breast Acid reflux Asthma Diabetes Home Medications ???Medication ???Instructions ???Recorded ???Last Taken ???Type lancets 21 gauge #100 ea 03/30/21 Unknown Rx blood sugar diagnostic (Blood #100 ea 04/02/21 Unknown Rx Glucose Test strips) blood-glucose meter #1 ea 04/02/21 Unknown Rx cholecalciferol (vitamin D3) 50 50 mcg PO DAILY 10/03/21 Unknown H istory mcg (2,000 unit) capsule glimepiride 2 mg tablet 2 mg PO QAM #90 tabs 09/23/22 Unkn own Rx metformin 500 mg tablet 500 mg PO DAILY #90 tabs 01/04/24 Unknown Rx calcium carbonate 500 mg PO QDAY 02/27/24 Unknown Hi story cyclobenzaprine 5 mg tablet 5 mg PO TID PRN muscle spasm #30 0 03/19/24 Unknown Rx tabs Allergy/AdvReac Type Severity Reaction Status Date / Time nitrofurantoin (From Allergy Urticaria Verified 04/07/24 14:42 Macrobid) Penicillins Allergy PT UNSURE Verified 04/07/24 14:42 OF REACTION Sulfa (Sulfonamide Allergy HIGH BP Verified 04/07/24 14:42 Antibiotics) Family History Mother Breast cancer Arthritis Father Cancer Brain Surgical History History of hysteroscopy History of colonoscopy with polypectomy S/P D C (status post dilation and curettage) Hx of appendectomy History of laparoscopic cholecystectomy Social History household members: spouse current occupational status: retired Smoking Status: Never smoker alcohol intake: never substance use type: does not use caffeine: Yes what type of physical activity do you participate in: none seatbelt use: always do you feel safe at home: Yes additional social history: - Jose Past Medical/Surgical History Planned Operation Planned Operative Procedure(s): CSCOPE Previous Hospitalizations/Surgeries HX Hospitalizations: No Any Problems With Anesthesia: No You/Your Family Experience Fever (Hyperthermia) With Anes: No Cholinesterase deficiency: No Cardiovascular Hx Heart Attack: No Hx Hypertension: No Respiratory Hx Chronic Obstructive Pulmonary Disease (COPD): No Hx Asthma: No Hx Emphysema: No Hx Sleep Apnea: No Hx Respiratory Tract Infection/Cold (presently): Yes (BRONCHITIS 02/25/24) Do You Snore Loudly (louder than talking or can be heard): No Do You Often Feel Tired/ Fatigued/ Sleepy Dring Daytime?: No Has Anyone Observed You Stop Breathing During Sleep?: No Result (for STOP score): Negative Smoking Status: Never smoker Gastrointestinal Special diet followed at home: No Neurological Hx Seizures: No Does patient have nerve stimulator: No Reproduction : No Genitourinary Hx Renal Disease: No Endocrine Hx Diabetes: No (Newly diagnosed) Miscellaneous Recent Exposure to Contagious Disease: No Allergies nitrofurantoin (From Macrobid) Allergy (Verified 04/07/24 14:42) Urticaria Penicillins Allergy (Verified 04/07/24 14:42) PT UNSURE OF REACTION Sulfa (Sulfonamide Antibiotics) Allergy (Verified 04/07/24 14:42) HIGH BP Discharge Is Pt Admitted From a [facility], or a Nursing Home: No After D/C, Where Do you Plan to Go: Return Home Physical Exam Const alert, oriented x3 and no apparent distress HEENT normocephalic and head/scalp atraumatic Resp normal respiratory effort Cardio regular rate GI soft to palpation and non-tender; Negative for non-distended Palpation: Negative for guarding Extremity no clubbing, cyanosis or edema Skin no rashes or lesions noted Neuro CN's II-XII intact bilaterally Psych mental status grossly normal Assessment Plan Assessment/Plan (1) Encounter for screening for malignant neoplasm of col (more content not included)... [facility] 03-19-2024 Evaluation note Diagnosis Onset Date Resolution Thoracic back pain acute 2024 9:31am Thoracic radiculopathy noneactive Fe [facility]2024 9:31am Encounter for screening for malignant neoplasm of colon acute April 12, 2024 7:50am [facility] Work Phone: 1(260) 983-682202-07-2025 Evaluation note* Diagnosis Onset Date Resolution Status Admit Date Thoracic back pain acute 2024 9:31am Thoracic radiculopathy noneactive Fe [facility] 2024 9:31am Encounter for screening for malignant neoplasm of colon acute 2024 7:50am Thoracic back pain acute June 07, 2024 9:26am Encounter for routine gynecological examination noneactive July 072024 1:15pm [facility] Work Phone: 1(638) 635-835212-05-2023 Procedure [facility] 01-14-2023 History and physical note Author Candiec Ravi [facility] January 14, 2023 10:47am Note Date/Time January 14, 2023 1 0:47am [facility] Medical Records Department [address] [place] [address] History & Physical Exam 01/14/23 1047 MR#: [id number] Acct: [id number] Name: FRANKO SARMIENTO Rep #:[id number] : 1960 63 From: Candice nogueira MD PCP: Dr. Belle Miguel MD Status:PRE [facility] Location: [facility] History and Physical Date of Admission: 01/14/23 Vital Signs 08/28/2312:06 11/21/2310:14 11/21/2310:17 Height 5 ft 6 in 5 ft 6 in 5 ft 6 in Weight: 155 lb 6 oz BMI 25.0 BP 110/70 Temp 97.5 F L Intake Visit Reasons: Fluid in endometrium [place]ater Required: No Allergies Penicillins Allergy (Verified 11/21/22 11:15) OtherSulfa (Sulfonamide Antibiotics) Allergy (Verified 11/21/22 11:15) Other Medications lancets 21 gauge #100 ea 03/30/21 [Rx Confirmed 11/21/22] alcohol swabs (BD Alcohol Swabs) 1 pad topical .Daily. #100 ea 04/02/21 [Rx Confirmed 11/21/22] blood sugar diagnostic (Blood Glucose Test strips) #100 ea 04/02/21 [Rx Confirmed 11/21/22] blood-glucose meter #1 ea 04/02/21 [Rx Confirmed 11/21/22] cholecalciferol (vitamin D3) 50 mcg (2,000 unit) capsule 50 mcg PO DAILY 10/03/21 [History Confirmed 11/21/22] metformin 500 mg 24 hr tablet,extended release 500 mg PO DAILY #90 tabs 01/02/22[Rx Confirmed 11/21/22] paroxetine HCl 10 mg tablet 10 mg PO DAILY #90 tabs 01/02/22 [Rx Confirmed 11/21/22] glimepiride 2 mg tablet 2 mg PO QAM #90 tabs 09/23/22 [Rx Confirmed 11/21/22] Is last menstrual period known: No Patient : No : No PFSH Medical History Abnormal ultrasound of breast Acid reflux Asthma Bee sting Carpal tunnel syndrome of right wrist Depression Diabetes Thyroid nodule Surgical History History of laparoscopic cholecystectomy Family History Mother Breast cancer ArthritisFather Cancer Brain Social History Smoking Status: Never smoker alcohol intake: never substance use type: does not use caffeine: Yes what type of physical activity do you participate in: none seatbelt use: always do you feel safe at home: Yes additional social history: - Oj[place] HPI Fluid in endometrium Details: FRANKO SARMIENTO is a 62 year old who presents for perisstent thickened endometrium, she denies any discharge or bleeding, she feels some lower pelvic pain and discomfort. she has had multiple pelvic ultrasounds that show persistent thickened endometrium and she had a normal EMB but lining is still thick. Female Reproductive History Menopausal Symptoms: No night sweats History 5 Elective abortions Hx Para 2 Spontaneous abortions 3 Hx # Term Pregnancies Ectopic pregnancies Hx # Pregnancies Multiple births # of living children Past Pregnancies Del. Date Name GA/Weeks Outcome Route Bth Weight Gen Labor Lgth Anesthesia Del Locatn Provider FOB Unknown Madi Unknown Bautista ROS Const Constitutional: Denies fatigue, night sweats, weight gain or weight loss ENT ENT: Reports system reviewed and no additional complaints, except as documented Cardio Card: Denies chest pain Resp Resp: Denies cough or dyspnea GI GI: Reports as per HPI; Denies abdominal pain, constipation, nausea or vomiting : Denies nipple discharge, urinary frequency, urinary incontinence, urinary hesitancy, urinary urgency, vaginal discharge, vaginal dryness, vaginal odor or vaginal pruritus Musc Musc: Denies arthralgias, back pain or muscle weakness Skin Skin/Breast: Denies alopecia, change in hair, dry skin, breast mass, breast pain, breast skin changes or nipple discharge Neuro Neuro: Reports system reviewed and no additional complaints, except as documented Psych Psych: Reports system reviewed and no additional complaints, except as documented Endo Endo: Denies cold intolerance, excessive sweating, heat intolerance or polydipsia Obie/Lymph Hematologic/Lymphatic: Denies easy bleeding, Denies easy bruising and Denies lymphadenopathy Exam Const General: cooperative, healthy appearing, comfortable and no acute distress Orientation: alert HENMT Head: normal to inspection and normocephalic Ears: hearing grossly normal bilaterally and external ears normal Nose: external nose normal and nares normal Face and sinus: normal facial exam Neck Neck: normal visual inspection and no lymphadenopathy Thyroid: thyroid normal Chest Chest palpation & inspection: normal inspection of the chest Resp Effort & Inspection: normal respiratory effort Auscultation: clear to auscultation bilaterally Cardio Rate: regular rate Rhythm: regular rhythm Heart Sounds: S1 normal and S2 normal GI Inspection: normal to inspection and non-distended Palpation: soft and no hepatosplenomegaly Musc Other: gross motor intact no deficits, full bilateral strength Skin General: no rashes or lesions noted Neuro General: patient alert, patient awake, moves all extremities and no focal motor deficits Motor: muscle tone normal throughout Extrem General: normal to inspection and no pedal edema Psych Appearance: grossly normal Mental Status: mental status grossly normal Affect: normal affect Speech and Movement: speech and movement normal Results POC Urinalysis Dip (Clinic) Office Urine Color YELLOW Last Edit by Cadence Retana on 11/21/22 11:26 Office Urine Clarity Clear Last Edit by Cadence Retana on 11/21/22 11:26 Office Urine Glucose Negative Last Edit by Cadence Retana on 11/21/22 11:26 Office Urine Ketones Trace (5) Last Edit by Cadence Retana on 11/21/22 11:26 Off Ur Spec [place] 1.010 Last Edit by Cadence Retana on 11/21/22 11:26 Office Urine pH 5 Last Edit by Cadence Retana on 11/21/22 11:26 Office Urine Bilirubin Negative Last Edit by Cadence Retana on 11/21/22 11:26 Office Urine Urobilinogen Negative Last Edit by Cadence Retana on 11/21/22 11:2 6 Office Urine Blood Negative Last Edit by Cadence Retana on 11/21/22 11:26 Office Urine Blood Hemolyzed Negative Last Edit by Cadence eRtana on 11/21/22 11:26 Office Urine Protein Negative Last Edit by Cadence Retana on 11/21/22 11:26 Office Urine Nitrate Negative Last Edit by Cadence Retana on 11/21/22 11:26 Off Ur Leukocytes Negatve Last Edit by Cadence Retana on 11/21/22 11:26 Coding Level of Care Code Off vis,est,level 4 Diagnoses Abnormal collection of fluid in uterine cavity N85.8 Pelvic pain R10.2 Assessment and Plan Assessment and Plan (1) Abnormal collection of fluid in uterine cavity: Status: Acute Comment: persistent, recommend d and c hysteroscopy possible symphion (2) Pelvic pain: Status: Acute Comment: recommend d and c hysteroscopy possible symphion Orders: Orders Culture, Urine Today R30.0 - Dysuria POC Urinalysis Dip (Clinic) Today R30.0 - Dysuria Plan After discussing the patient's diagnosis and treatment plan options, patient wishes to proceed with surgical management. I have discussed with the patient the risks, benefits, and alternatives of the procedure which include but are notlimited to risks of anesthesia, bleeding, infection, possible damage to bowel, bladder, or surrounding vasculature which could lead to additional surgery to evaluate any complications. Patient agrees to procedure and wishes to proceed. ACOG/uptodate references given for additional information regarding procedure. UPDATE- I have seen the patient and performed any clinically relevant updates to the history and physical exam. Candice Ravi MD 01/14/23 1047 <Electronically signed by Candice Ravi MD> Cosigner Signature (if applicable): CC: Dr. Belle Miguel MD; Dr. Candice Ravi MD~ Signed [facility] Work Phone: Discharge summary Author Candice Ravi [facility] January 14, 2023 5:11pm Note Date/Time January 14, 2023 5 :12pm [facility] Medical Records Department [address] [place] [address] Instructions for Home/Discharge Instructions 01/14/23 1711 MR#: [id number] Acct: [id number] Name: FRANKO SARMIENTO Rep #:[id number] 8 : 1960 63 From: Candice nogueira MD PCP: Dr. Belle Miguel MD Status:[facility] [place] Discharge Instructions Diet Discharge Diet: No restrictions Activity Discharge Activity: Return to Normal Activity, May Shower and May Take a Tub Bath (after 1 week) May resume sexual activity in: 1-2 weeks Weight Bearing Status: Weight bearing as tolerated Lifting Restrictions: none Dressing / Incision Call your doctor if you observe: Fever of 101 or Higher, Using more than 1 pad per hour, Shortness of breath and Uncontrolled pain Follow Up Care Please Follow Up With: Candice Ravi MD When: Call [phone] to schedule appointment. Test Results: Test results from this visit will be discussed in further detail at your follow- up appointment, if applicable. Discharge Plan Admission Attending Provider: Candice Ravi Primary Care Provider: Belle Miguel Discharge Orders/Prescriptions Prescriptions: No Action cholecalciferol (vitamin D3) 50 mcg (2,000 unit) capsule 50 mcg PO DAILY vitamin B complex Capsule 1 cap PO DAILY (DME) lancets 21 gauge misc See Rx Instructions .ROUTE .MEDSUPPLY Qty: 100 1RF Rx Instructions: Test daily as directed (DME) Blood Glucose Test Strip See Rx Instructions .ROUTE .MEDSUPPLY Qty: 100 1RF Rx Instructions: Test daily as directed (DME) blood-glucose meter Misc See Rx Instructions .ROUTE .MEDSUPPLY Qty: 1 0RF Rx Instructions: As directed metformin 500 mg tablet,ER rickey.retention 24 hr 500 mg PO DAILY Qty: 90 3RF glimepiride 2 mg tablet 2 mg PO QAM Qty: 90 3RF paroxetine HCl 10 mg tablet 10 mg PO DAILY Qty: 90 3RF Referrals / Follow Up: Belle Miguel MD [Primary Care Provider] - Disposition Disposition (needs filled in before D/C Order can be placed): Home, Self Care 01/14/23 1711<Electronically signed by Candice Ravi MD>Candice Ravi MD CC: Dr. Belle Miguel MD ~ Signed [facility] Work Phone: Evaluation note* Diagnosis Onset Date Resolution Status Diabetes acute Vitamin D deficiency acute Abnormal mammogram acute [facility] Work Phone: Evaluation note* Diagnosis Onset Date Resolution Status Bee sting acute Encounter for routine gynecological examination noneactive Diabetes acute Vitamin D deficiency acute Chronic thoracic back pain n oneactive Dysuria noneactive Acute low back pain noneacti ve [facility] Work Phone: Evaluation note* Diagnosis Onset Date Resolution Status Encounter for routine gynecological examination noneactive Diabetes acute Vitamin D deficiency acute Chronic thoracic back pain n oneactive Dysuria noneactive Acute low back pain noneacti ve Diabetes acute Thoracic back pain acute Vitamin D deficiency acute [facility] Work Phone: Evaluation note* Diagnosis Onset Date Resolution Status Diabetes acute Thoracic back pain acute Vitamin D deficiency acute [facility] Work Phone: Evaluation note* Diagnosis Onset Date Resolution Status Pelvic pain acute [facility] Work Phone: Evaluation note* Diagnosis Onset Date Resolution Status Abnormal collection of fluid in uterine cavity acute Pelvic pain [facility] Work Phone: Evaluation note* Diagnosis Onset Date Resolution Status Abnormal collection of fluid in uterine cavity acute Pelvic pain acute Abnormal collection of fluid in uterine cavity acute Pelvic pain [facility] Work Phone: Evaluation note* Diagnosis Onset Date Resolution Status Abnormal collection of fluid in uterine cavity acute Pelvic pain acute Simple endometrial hyperplasia without atypia acute Acute right otitis media acu te Acute upper respiratory infection [facility] Work Phone: Hospital Discharge instructions Additional Instructions Implant Used?: [facility] Work Phone: Chief Complaint and Reason for Visit Chief Complaint est care Amb Documentation SCREENING LEFT BREAST BIOPSY abnormal mamm abnormal mamm Reason for Visit Diabetes Vitamin D deficiency Abnormal mammogram Chief Complaint BEE STING ON EYE AND FINGER 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 RX HERE FU after PT for Back Reason for Visit Encounter for routin e gynecological examination Diabetes Vitamin D deficiency Chronic thoracic back pain Dysuria Acute low back pain Diabetes Thoracic back pain Vitamin D deficiency Chief Complaint THORACIC BACK PAIN. 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 Of [employer] PELVIC AND PERINEAL PAIN PEVIC PAIN Reason for Visit Pelvic pain Chief Complaint PEVIC PAIN EMB PELVIC PAIN Reason for Visit Abnormal collection of fluid in uterine cavity Pelvic pain Chief Complaint PEVIC PAIN EMB PELVIC PAIN Fluid in endometrium E-ORDER Reason for Visit Abnormal collection of fluid in uterine cavity Pelvic pain Abnormal collection of fluid in uterine cavity Pelvic pain Chief Complaint PELVIC PAIN Fluid in endometrium E-ORDER PREOP Hysteroscopy,D&C Symphion Hysteroscopy,D&C Symphion Reason for Visit Abnormal collection of fluid in uterine cavity Pelvic pain Abnormal collection of fluid in uterine cavity Pelvic pain Chief Complaint PREOP Hysteroscopy,D&C Symphion Hysteroscopy,D&C Symphion 2 wk D&C COUGH, PLUGGED RT EAR EORDER Reason for Visit Abnormal collection of fluid in uterine cavity Pelvic pain Simple endometrial hyperplasia without atypia Acute right otitis media Acute upper respiratory infection Chief Complaint Admit Date ENDOMETRIAL HYPERPLASIA February 05, 2 024 12:02pm COUGH, FATIGUE February 18, 2024 11 :04am Chronic back pain February 27, 2024 1 0:44am Amb Documentation February 27, 2024 2 :11pm THORACIC SPINE March 19, 2024 9 :31am THORACIC RADICULOPATHY May 22, 2024 8:41am Reason for Visit Admit Date Thoracic back pain March 19, 2024 9 :31am Thoracic radiculopathy March 19 9:31am Encounter for screening for malignant ne oplasm of colon April 12, 2024 7:50am Chief Complaint Admit Date THORACIC SPINE March 19, 2024 9 :31am THORACIC RADICULOPATHY May 22, 2024 8:41am THORACIC SPINE June 07, 2024 9:2 6am 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) July 07, 2024 1:15p m Reason for Visit Admit Date Thoracic back pain March 19, 2024 9 :31am Thoracic radiculopathy March 19 9:31am Encounter for screening for malignant ne oplasm of colon April 12, 2024 7:50am Thoracic back pain June 07, 2024 9:2 6am Encounter for routine gynecological exam ination July 07, 2024 1:15pm Family History No Family History Records Found Relationship Condition Age at Onset Recorded Date/T torres mother Malignant neoplasm of breast Unknown Arthritis Unknown father Malignant neoplasm Unknown Advance Directives No Advanced Directives Records Found Advance Directive Response Recorded Date/ Time Living Will No January 01 023 2:07pm Power of Resource Development Manager No January 01, 2023 2:07pm Advance Directive Response Recorded Date/ Time Living Will No January 01 023 3:07pm Power of Resource Development Manager No January 01, 2023 3:07pm Advance Directive Response Recorded Date/ Time Living Will Yes April 07 025 3:43pm Do you have a Healthcare Power of Resource Development Manager? Yes April 07, 2024 3:43pm Name of Medical Power of Resource Development Manager MARC April 07, 2024 3:43pm Summary Purpose Additional Source Comments Goals (unrecognized section and content) Goals may be documented in a n alternate sectionGoals may be documented in an alternate sectionGoals may be documented in an alternate sectionGoals may be documented in an alternate sectionGoals may be documented in an alternate sectionGoals may be documented in an alternate sectionGoals may be documented in an alternate sectionGoals may be documented in an alternate sectionGoals may be documented in an alternate sectionGoals may be documented in an alternate section Care Teams (unrecognized sec tion and content) Team Status: Active Member Role Status Dates Dr. Armando Gómez MD Family Provider Active Dr. Belle Miguel MD Primary Care Provider Active Team Status: Inactive Member Role Status Dates Dr. Belle Miguel MD Primary Care Provider, Attendi ng Provider Active Team Status: Inactive Member Role Status Dates Dr. Belle Miguel MD Primary Care Provider Active ELIZABETH Mata Attending Provider, Referring Pro vider Active BERNARDO ANNA Active Team Status: Inactive Member Role Status Dates Dr. Belle Miguel MD Primary Care Pro vider, Attending Provider, Referring Provider Active Team Status: Inactive Member Role Status Dates Dr. Belle Miguel MD Primary Care Provider, Referri ng Provider Active Arlet Peres STILL OPERATOR WHISKEY, STILL OPERATOR WHISKEY-C Attending Provider Active Team Status: Inactive Member Role Status Dates Dr. Belle Miguel MD Primary Care Provider Active Arlet Peres STILL OPERATOR WHISKEY, STILL OPERATOR WHISKEY-C Attending Provider, Referring Provider Active Team Status: Inactive Member Role Status Dates Dr. Belle Miguel MD Primary Care Provider, Referri ng Provider Active Dr. Candice Ravi MD Attending Provider Active Team Status: Inactive Member Role Status Dates Dr. Belle Miguel MD Primary Care Provider Active Dr. Candice Ravi MD Attending Provider, Referr ing Provider Active Team Status: Active Member Role Status Dates Dr. Belle Miguel MD Primary Care Provider Active Dr. Pramod Small MD Attending Provider Active Dr. Candice Ravi MD Referring Provider Active Team Status: Active Member Role Status Dates Dr. Belle Miguel MD Primary Care Provider Active Dr. Candice Ravi MD Attending Pr ovider, Referring Provider, Other Provider Active Team Status: Active Member Role Status Dates Dr. Armando Gómez MD Family Provider Active Joel Gaston MD Primary Care Provider Active Team Status: Inactive Member Role Status Dates Dr. Belle Miguel MD Primary Care Provider, Referri ng Provider Active Flavio JOHNSON, [place] Attending Provider Active Team Status: Inactive Member Role Status Kiersten Gaston MD Primary Care Provide r, Attending Provider, Referring Provider Active Team Status: Active Member Role Status Dates Joel Gaston MD Primary Care Provider Active Team Status: Inactive Member Role Status Kiersten Gaston MD Primary Care Provider Active St art: February 06, 2024 End: February 06, 2024 Dr. Brit Blount , Attending Provider Activ e Start: February 06, 2024 End: February 06, 2024 Dr. Brit Blount , Referring Provider Activ e Start: February 06, 2024 End: February 06, 2024 Team Status: Inactive Member Role Status Kiersten Gaston MD Primary Care Provider Active St art: February 18, 2024 End: February 18, 2024 Joel Gaston MD Referring Provider Active Start : February 18, 2024 End: February 18, 2024 Riley JOHNSON, PA Attending Provider Active Start: February 18, 2024 End: February 18, 2024 Team Status: Inactive Member Role Status Kiersten Gaston MD Primary Care Provider Active St art: February 27, 2024 End: February 27, 2024 Joel Gaston MD Attending Provider Active Start : February 27, 2024 End: February 27, 2024 Joel Gaston MD Referring Provider Active Start : February 27, 2024 End: February 27, 2024 Team Status: Active Member Role Status Kiersten Gaston MD Primary Care Provider Active St art: February 27, 2024 Joelle Madden Attending Provider Active Start: claudia 2024 Team Status: Inactive Member Role Status Kiersten Gaston MD Primary Care Provider Active St art: March 19, 2024 End: March 19, 2024 Joel Gaston MD Referring Provider Active Start : March 19, 2024 End: March 19, 2024 ELIZABETH Hilario Attending Provider Active Star t: March 19, 2024 End: March 19, 2024 Team Status: Inactive Member Role Status Kiersten Gaston MD Primary Care Provider Active St art: April 12, 2024 End: April 12, 2024 Joel Gaston MD Referring Provider Active Start : April 12, 2024 End: April 12, 2024 Dr. Ashley Rodriguez MD Attending Provider Active Start: April 12, 2024 End: April 12, 2024 Team Status: Active Member Role Status Kiersten Gaston MD Primary Care Provider Active St art: April 12, 2024 Joel Gaston MD Referring Provider Active Start : April 12, 2024 Dr. Ashley Rodriguez MD Attending Provider Active Start: April 12, 2024 Dr. Ashley Rodriguez MD Other Provider Active S tart: April 12, 2024 Team Status: Inactive Member Role Status Kiersten Gaston MD Primary Care Provider Active St art: May 22, 2024 End: May 22, 2024 ELIZABETH Hilario Attending Provider Active Star t: May 22, 2024 End: May 22, 2024 ELIZABETH Hilario Referring Provider Active Star t: May 22, 2024 End: May 22, 2024 Team Status: Inactive Member Role Status Kiersten Gaston MD Primary Care Provider Active St art: June 07, 2024 End: June 07, 2024 Joel Gaston MD Referring Provider Active Start : June 07, 2024 End: June 07, 2024 ELIZABETH Hilario Attending Provider Active Star t: June 07, 2024 End: June 07, 2024 Team Status: Inactive Member Role Status Kiersten Gaston MD Primary Care Provider Active St art: July 07, 2024 End: July 07, 2024 Joel Gaston MD Referring Provider Active Start : July 07, 2024 End: July 07, 2024 ALLISON Loaiza Attending Provider Active Start: July 07, 2024 End: July 07, 2024 INFORMATION SOURCE (unrecogn ized section and content) DATE CREATED AUTHOR 07/19/2024 [facility] FOR RECORDS PERTAINING TO PATIENTS WHO ARE OR HAVE BEEN ENROLLED IN A CHEMICAL DEPENDENCY/SUBSTANCEABUSE PROGRAM, SOME INFORMATION MAY BE OMITTED. This clinical summary was aggregated from multiple sources. Caution should be exercised in using it in the provision of clinical care. This summary normalizes information from multiple sources, and as a consequence, information in this document may materially change the coding, format and clinical context of patient data. In addition, data may be omitted in some cases. CLINICAL DECISIONS SHOULD BE BASED ON THE PRIMARY CLINICAL RECORDS. [email or web address] [facility]. provides no warranty or guarantee of the accuracy or completeness of information in this document.
== END | disposition home or self-care (01) ==
PROVIDERS: PCP Family Medicine; Referring Provider Nurse Practitioner Family; Visit Provider Nurse Practitioner Family
DX: R10.2 Pelvic and perineal pain (principal); Z78.0 Asymptomatic menopausal state; N64.4 Mastodynia
CPT/HCPCS: 76642; 76830; 76856; 77062; 77066; G0279

== ENCOUNTER → 2024-09-25 | Outpatient (CLI) | payer MEDICARE, SELFPAY ==
--- OUTSIDE RECORDS SUMMARY | 2024-09-25 07:18 | XMS RPT_ITS | CCD ---
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 Armando Gómez Primary Care Provider Dr. Armando Gómez Referring Provider Dr. Belle Miguel Attending Provider [phone] Cordelia Wu Attending Provider Unavailable Dr. Ashley Rodriguez Attending Provider Dr. Belle Miguel Primary Care Provider Dr. Belle Miguel Referring Provider [phone] Dr. Ashley Rodriguez Referring Provider Dr. Ashley Rodriguez Other Provider Dr. Belle Miguel Primary Care Provider Dr. Belle Miguel Referring Provider [phone] ELIZABETH Alexis Attending Provider Dr. Armando Gómez Referring Provider Dr. Brit Blount Attending Provider [phone] ELIZABETH Rouse Attending Provider UnavailHi Nixon Attending Provider Unavailable Dr. Armando Gómez Referring Provider Dr. Belle Miguel Primary Care Provider Dr. Brit Blount Attending Provider [phone] ELIZABETH Rouse Attending Provider UnavailHi Nixon Attending Provider Unavailable Dr. Belle Miguel Attending Provider [phone] Dr. Belle Miguel Primary Care Provider Dr. Belle Miguel Primary Care Provider Dr. Belle Miguel Referring Provider [phone] Ja FREIGHT HUSTLER, FREIGHT HUSTLER-C Arlet Attending Provider [phone] Dr. Belle Miguel Primary Care Provider Dr. Belle Miguel Referring Provider Dr. Belle Miguel Primary Care Provider Dr. Belle Miguel Referring Provider Ja FREIGHT HUSTLER, FREIGHT HUSTLER-[place] Nice Attending Provider [phone] Dr. Candice Ravi Attending Provider [phone] Dr. Belle Miguel Primary Care Provider Dr. Belle Miguel Referring Provider [phone] Dr. Candice Ravi Attending Provider [phone] Dr. Pramod Small Attending Provider [phone] Dr. Candice Ravi Referring Provider [phone] Dr. Candice Ravi Other Provider [phone] Dr. Belle Miguel Primary Care Provider Dr. Pramod Small Attending Provider [phone] Dr. Candice Ravi Referring Provider [phone] Dr. Candice Ravi Attending Provider [phone] Dr. Candice Ravi Other Provider [phone] Dr. Belle Miguel Referring Provider ELIZABETH Wylie Attending Provider Joel Gaston MD Primary Care Provider [phone] Brit Blount DO Attending Provider Dr. Brit Blount DO Referring Provider Joel Gaston MD Referring Provider Riley Alexis Attending Provider Joel Gaston MD Attending Provider Joelle Madden Attending Provider Unavailable Cris Galvez Attending Provider Michael CALHOUN, Dr. Ramirez Attending Provider Michael CALHOUN, Dr. Ramirez Other Provider Cris Galvez Referring Provider [phone] Alek CALHOUN, Chalon Primary Care Provider [phone] Alek CALHOUN, Chalon Referring Provider Mumtaz ALATORRE-CLydia Attending Provider Alek CALHOUN, Chalon Primary Care Provider [phone] Alek CALHOUN, Chalon Referring Provider [phone] Cris Galvez Attending Provider [phone] Mumtaz ALATORRE-CLydia Referring Provider Alek, Chalon Referring Unavailable Lydia Pandya Attending Unavailable Alek, Chalon Primary Care Unavailable Alek, Chalon Primary Care Unavailable Alek, Chalon Referring Unavailable Alek, Chalon Attending Unavailable Alek, Chalon Referring Unavailable Alek, Chalon Primary Care Unavailable Marcanthony, Candice Attending Unavailable Alek, Chalon Referring Unavailable Alek, Chalon Primary Care Unavailable Alek, Chalon Attending Unavailable Alek, Chalon Referring Unavailable Alek, Chalon Primary Care Unavailable Alek, Chalon Attending Unavailable Yoav, Himanshu Attending Unavailable Alek, Chalon Primary Care Unavailable Alek, Chalon Primary Care Unavailable Marcanthony, Candice Attending Unavailable Marcanthony, Candice Referring Unavailable Alek, Chalon Primary Care Unavailable Vande Velde, Brit Referring Unavailabl e Vande Velde, Brit Attending Unavailabl e Alek, Chalon Primary Care Unavailable Alek, Chalon Referring Unavailable Vande Velde, Brit Attending Unavailabl e Alek, Chalon Referring Unavailable Alek, Chalon Primary Care Unavailable Marcanthony, Cnadice Attending Unavailable Alek, Chalon Referring Unavailable Julio CésarBrianyn Attending Unavailable Alek, Chalon Primary Care Unavailable Alek, Chalon Primary Care Unavailable Joelle Madden Attending Unavailable Ashley Rodriguez Attending Unavailable Ashley Rodriguez Consulting Unavailable Alek, Chalon Referring Unavailable Alek, Chalon Primary Care Unavailable Alek, Chalon Primary Care Unavailable Marcanthony, Candice Referring Unavailable Marcanthony, Candice Attending Unavailable Ashley Rodriguez Attending Unavailable Alek, Chalon Primary Care Unavailable Alek, Chalon Referring Unavailable Alek, Chalon Primary Care Unavailable Julio César, Cris Referring Unavailable Julio César, Cris Attending Unavailable Barkman, Lydia Referring Unavailable Barkman, Lydia Attending Unavailable Alek, Chalon Primary Care Unavailable Alek, Chalon Primary Care Unavailable Barkman, Lydia Referring Unavailable Barkman, Lydia Attending Unavailable Alek, Chalon Primary Care Unavailable Vande Velde, Brit Referring Unavailabl e Vande Velde, Brit Attending Unavailabl e Alek, Chalon Referring Unavailable Alek, Chalon Primary Care Unavailable Julio César, Cris Attending Unavailable Alek, Chalon Primary Care Unavailable Alek, Chalon Referring Unavailable Riley Alexis Attending Unavailable Alek, Chalon Primary Care Unavailable Joelle Madden Attending Unavailable Alek, Chalon Primary Care Unavailable Alek, Chalon Referring Unavailable Vande Velde, Brit Attending Unavailabl e Allergies Allergy Classification Reported Allergen(s) Allergy Type Date of Onset Reaction(s) Facility (16 sources) Penicillins; Translations: [Penicillins] Allergy to substance 2 Other, PT UNSURE OF REACTION [facility] (16 sources) Sulfonamides (Antibiotic); Translations: [Sulfa (Sulfonamide Antibiotics)] Allergy to substance 2 Other, HIGH BP [facility] (3 sources) Nitrofurantoin Drug Allergy 5 Urticaria [facility] (1 source) Nitrofurantoin Drug Allergy 5 [facility] Repository Medications Current Medications Medication Drug Class(es) Dates Sig (Normalized) Sig (Original) Blood-Glucose Meter (20 sources) Start: 04-02-2021 Blood-Glucose Meter Active 0 .ROUTE .MEDSUPPLY April 02, 2021 8:07am As directed Start: 04-02-2021 Blood-Glucose Meter Active 0 .ROUTE .MEDSUPPLY April 02, 2021 9:07am As directed Start: 03-30-2021 End: 04-02-2021 Blood-Glucose Meter Disconti nued 0 .ROUTE .MEDSUPPLY March 30, 2021 1:05pm April 02, 2021 [...] 2021 2:06pm As directed Blood-Glucose Meter misc (9 sources) Start: 04-02-2021 Blood-Glucose Meter misc Active 0 .ROUTE .MEDSUPPLY 1 0 April 02, 2021 9:07am As directed Start: 04-02-2021 Blood-Glucose Meter misc Active 0 .ROUTE .MEDSUPPLY 1 April 02, 2021 9:07am As directed Start: 03-30-2021 End: 04-02-2021 Blood-Glucose Meter misc Dis continued 0 .ROUTE .MEDSUPPLY 1 0 March 30, 2021 2:05pm April 02, 2021 9:08am As directed Start: 03-30-2021 End: 04-02-2021 Blood-Glucose Meter misc Dis continued 0 .ROUTE .MEDSUPPLY 1 March 30, 2021 2:05pm April 02, 2021 9:08am As directed Start: 03-28-2021 End: 03-30-2021 Blood-Glucose Meter misc Dis continued 0 .ROUTE .MEDSUPPLY 1 0 March 28, 2021 1:00am March 30, 2021 2:06pm As directed Start: 03-28-2021 End: 03-30-2021 Blood-Glucose Meter misc Dis continued 0 .ROUTE .MEDSUPPLY March 28, 2021 1:00am March 30, 2021 2:06pm As directed calcium carbonate 1250 mg oral tablet (3 sources) Start: 02-27-2024 take 1 tablet by mouth once daily Calcium Carbonate 500 mg calcium (1,250 mg) tablet Active 500 mg PO daily February 27, 2024 1:00am cholecalciferol 0.05 mg oral capsule (14 sources) Vitamin D Start: 10-03-2021 take 1 capsule by mouth once daily Cholecalciferol (Vitamin D3) 50 mcg (2,000 unit) capsule Active 50 ug PO DAILY October 03, 2021 12:00am cyclobenzaprine hydrochloride 5 mg oral tablet (3 sources) Muscle Relaxant Start: 03-19-2024 take 1 tablet by mouth three times daily as needed for muscle spasms Cyclobenzaprine 5 mg tablet Active 5 mg PO THREE TIMES A DAY as needed for muscle spasm 30 0 March 19, 2024 1:00am glimepiride 2 mg [...] mg tablet Active 500 mg PO DAILY 90 February 13, 2023 5:40pm Start: 03-28-2021 End: 02-13-2023 take 1 tablet by mouth once daily Metformin 500 mg tablet,ER rickey.retention 24 hr Discontinued 500 mg PO DAILY 90 February 12, 2023 1:10pm February 13, 2023 [...] Drug Class(es) Dates Sig (Normalized) Sig (Original) [id number] 200 actuat albuterol 0.09 mg/actuat metered dose inhaler (15 sources) beta2-Adrenergic Agonist Start: 06-24-2017 End: 03-28-2021 [...] 2021 10:08am benzonatate 200 mg oral capsule (7 sources) Non-narcotic Antitussive Start: 02-18-2024 End: 03-19-2024 take 1 capsule by mouth three times daily as needed for cough Benzonatate 200 mg capsule Discontinued 200 mg PO THREE TIMES A DAY as needed for cough 20 0 February 18, 2024 1:00am March 19, 2024 10:41am Start: 01-31-2023 End: 01-17-2025 take 2 capsules by mouth three times daily as needed for cough Benzonatate 100 mg capsule Discontinued 200 mg PO THREE TIMES A DAY as needed for cough 30 January 31, 2023 1:00am February 27, 2024 3:18pm Start: 01-31-2023 take 200 mg by mouth three times daily Benzonatate Active 200 MG PO THREE TIMES A DAY 30 January 31, 2023 1:00am cephalexin 500 mg oral capsule (19 sources) Cephalosporin Antibacterial Start: 01-31-2023 End: 02-10-2023 take 1 capsule by mouth every twelve hours Cephalexin 500 mg capsule Discontinued 500 mg PO Q12H 20 10 January 31, 2023 1:00am February 09, 2023 1:00am February 10, 2023 1:04am Start: 06-06-2020 End: 06-16-2020 take 1 capsule by mouth every twelve hours Cephalexin 500 mg capsule Discontinued 500 mg PO Q12H 20 10 June 06, 2020 12:00am June 15, 2020 12:00am June 16, 2020 12:01am ciprofloxacin 500 mg oral tablet (20 sources) Quinolone Antimicrobial Start: 01-17-2021 End: 03-28-2021 take 1 tablet by mouth twice daily Ciprofloxacin Hcl 500 mg tablet Discontinued 500 mg PO TWICE A DAY 14 January 18, 2021 1:00am March 28, 2021 10:07am Start: 05-19-2014 End: 06-24-2017 take 1 tablet by mouth twice daily Ciprofloxacin Hcl 250 MG tablet Discontinued 250 mg PO TWICE A DAY May 19, 2014 12:00am June 24, 2017 1:42pm doxycycline monohydrate 100 mg oral capsule (3 sources) Tetracycline-class Drug Start: 02-18-2024 End: 03-19-2024 take 1 capsule by mouth twice daily Doxycycline Monohydrate 100 mg capsule Discontinued 100 mg PO TWICE A DAY 20 February 18, 2024 1:00am March 19, 2024 10:41am escitalopram 20 mg oral tablet (3 sources) Serotonin Reuptake Inhibitor Start: 09-02-2023 End: 02-27-2024 take 1 tablet by mouth once daily Escitalopram Oxalate 20 mg tablet Discontinued 20 mg PO DAILY September 02, 2023 12:00am February 27, 2024 3:15pm isopropyl alcohol 0.7 ml/ml medicated pad (20 sources) Start: 03-28-2021 End: 04-02-2021 Alcohol Swabs (Bd Alcohol Swabs) pads, medicated Discontinued 1 NMA TOPICAL .Daily. 100 1 March 30, 2021 2:05pm April 02, 2021 9:08am Start: 03-28-2021 End: 04-02-2021 Alcohol Swabs (Bd Alcohol Sw abs) pads, medicated Discontinued 1 PAD TOPICAL .Daily. 100 March 30, 2021 2:05pm April 02, 2021 9:08am megestrol acetate 40 mg oral tablet (14 sources) Progestin Start: 01-27-2023 End: 02-27-2024 take 1 tablet by mouth once daily Megestrol 40 mg tablet Discontinued 40 mg PO DAILY 90 4 July 28, 2023 5:09pm February 27, 2024 3:19pm miSOPROStol 0.2 mg oral tablet (3 sources) Prostaglandin E1 Analog Start: 09-03-2023 End: 12-17-2023 Misoprostol (Cytotec) 200 mcg tablet Discontinued 200 ug PO .complex 2 September 03, 2023 12:00am December 17, 2023 11:49am take the night before and two hours prior to the procedure nitrofurantoin, macrocrystals 25 mg / nitrofurantoin, monohydrate 75 mg oral capsule (9 sources) Nitrofuran Antibacterial Start: 03-27-2022 End: 04-03-2022 take 1 capsule by mouth twice daily at mealtime Nitrofurantoin Monohyd/M-Cryst (Macrobid) 100 mg capsule Discontinued 100 mg PO TWICE A DAY 14 7 0 March 27, 2022 1:00am April 02, 2022 [...] mg tablet Discontinued 10 mg PO DAILY 90 3 January 01, 2023 1:38pm February 27, 2024 3:19pm predniSONE 10 mg oral tablet (17 sources) Start: 02-18-2024 End: 03-19-2024 take 2 tablets by mouth twice daily Prednisone 10 mg tablet Discontinued 20 mg PO TWICE A DAY 20 February 18, 2024 1:00am March 19, 2024 10:41am Start: 08-30-2021 End: 09-26-2021 take 4 tablets by mouth once daily, then take 3 tablets by mouth once daily, then take 2 tablets by mouth once daily, then take 1 tablet by mouth once daily Prednisone 10 mg tablet Discontinued 10 mg PO DAILY 30 0 August 30, 2021 12:00am September 26, 2021 12:01pm 4 tablets daily x3 days, then 3 tablets daily x3 days, then 2 tablets daily x3 days, then 1 tablets daily x3 days promethazine hydrochloride 25 mg oral tablet (15 sources) Phenothiazine Start: 05-19-2014 End: 06-24-2017 take 1 tablet by mouth every six hours as needed for nausea Promethazine 25 MG tablet Discontinued 25 mg PO EVERY 6 HOURS NEEDED as needed for Nausea 10 0 May 19, 2014 12:00am June 24, 2017 1:42pm Vitamin B Complex capsule (3 sources) Start: 01-01-2023 End: 09-02-2023 Vitamin B Complex capsule Discontinued 1 NMA PO DAILY January 01, 2023 1:00am September 02, 2023 8:33am Problems Active Problems Problem Classification Problem Date Documented Date Episodic/Chronic Abdominal pain (20 sources) Pain in pelvis; Translations: [Pelvic and perineal pain] Onset: 07-14-2024 06-11-2022 Episodic Comment on above: UA blood only, cx fr iable. Culture pending recommend d and c hy steroscopy possible symphion Diabetes mellitus without complication (20 sources) Diabetes mellitus; Translations: [Type 2 diabetes mellitus without complications] Chronic Diabetes mellitus without complication (1 source) Glycosuria; Translations: [Glycosuria] Episodic Immunizations and screening for infectious disease (7 sources) Patient encounter status; Translations: [Encounter for screening for COVID-19] 09-02-2023 Episodic Nonmalignant breast conditions (2 sources) Mastodynia; Translations: [Pain of left breast] 07-07-2024 Episodic Nutritional deficiencies (20 sources) Vitamin D deficiency; Translations: [Vitamin D deficiency, unspecified] Chronic Other female genital disorders (4 sources) 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; Translations: [Benign endometrial hyperplasia] 01-27-2023 Chronic Comment on above: s/p megace treatment and 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 onc Other female genital disorders (2 sources) Benign endometrial hyperplasia; Translations: [Simple endometrial hyperplasia without atypia] Onset: 03-04-2024 01-27-2023 Chronic Other female genital disorders (7 sources) Hydrometra; Translations: [Other specified noninflammatory disorders of uterus] 09-03-2022 Episodic Comment on above: persistent, recommen d d and c hysteroscopy possible symphion Other female genital disorders (6 sources) Other specified noninflammatory disorders of uterus; Translations: [Other specified disorders of uterus, not elsewhere classified] 08-28-2022 Episodic Other female genital disorders (3 sources) Disorder of uterine cervix; Translations: [Other specified noninflammatory disorders of cervix uteri] 09-03-2023 Episodic Comment on above: 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 Very blue, ecchymotic [...] ear] 01-31-2023 Episodic Poisoning by nonmedicinal substances (17 sources) Bee sting; Translations: [Toxic effect of [...] Test Name Value Interpretation Reference Range Facility Breast Limited Unilateralon 07-29-2024 Breast Limited Unilateral [facility] [address] [place], [place] [address] Breast Limited Unilateral MR#: [id number] Acct: [id number] Name: FRANKO SARMIENTO Rep #: [id number] : 1960 F 64 From: Dennis bose MD PCP: Dr. Joel Gaston MD Status: [facility] Study: Breast Limited Unilateral Date of Exam: Exam# [id number] Ordering Dr: Lydia Pandya FREIGHT HUSTLER-C PROCEDURE: BREAST LIMITED UNILATERAL 07/29/2024 REASON FOR EXAM: BREAST PAIN Breast pain at the level of the prior biopsy site. TECHNIQUE: BREAST LIMITED UNILATERAL COMPARISON: Prior mammogram done earlier in the day.. FINDINGS: Left breast ultrasound was targeted to the lateral aspect of the left breast.. The breast tissue appears sonographically normal. No cyst, solid mass, or suspicious shadowing. US/Breast Limited Unilateral IMPRESSION: Impression: No sonographic abnormality is seen. Birads: BI-RADS 1: NEGATIVE. RECOMMEND ANNUAL MAMMOGRAPHIC SCREENING. Reading Location: [place] [address] CC: ALLISON Pandya; Dr. Joel Gaston MD Mobile Pet Groomer: Signed [facility] Breast imaging reportOrdered By: Dennis Ram on 07-29-2024 Study report [facility] [address] [place], [place] [id number] DIAG MAMM W/CAD, BILAT MR#: [id number] Acct: [id number] Name: FRANKO SARMIENTO Rep #: [id number] : 1960 F 64 From: Hola Ram MD PCP: Dr. Joel Gaston MD Status: REG CL I Study:DIAG MAMM W/CAD, BILAT Date of Exam: 07/29/24 Exam# [id number] Ordering Dr: Lydia Pandya FREIGHT HUSTLERHetal EXAM: DIAG MAMM W/CAD, BILAT 07/29/2024 CLINICAL HISTORY: F, Age 64 y/o, left breast pain. TECHNIQUE: Bilateral Diagnostic digital breast tomosynthesis with 2D and 3D images. Computer aided detection. COMPARISON: Prior exam(s) dated July 09, 2023. FINDINGS: TISSUE DENSITY: The breast tissue is composed of scattered areas of fibroglandular density. Bilateral Breast Mammographic Findings: No significant masses, calcifications or other abnormalities are identified. Once again, a tissue clip marker is seen within a 9 mm well-defined nodule in the inferior medial aspect of the left breast. A tissue clip marker is also seen in the slightly upper medial aspect of the left breast from prior biopsies. Stable examination. With the patient's history of left breast pain, targeted sonographic correlationrecommended . BI/DIAG MAMM W/CAD, BILAT IMPRESSION: Stable examination. OVERALL FINAL ASSESSMENT BI-RADS 0: INCOMPLETE - NEED ADDITIONAL IMAGING EVALUATION. RECOMMENDATION: Ultrasound Recommended A letter with findings and recommendations will be mailed to the patient. Reading Location: [facility] CC: ALLISON Pandya; Dr. Joel Gaston MD ~ Mobile Pet Groomer: Signed [facility] DIAG MAMM W/CAD, BILATon DIAG MAMM W/CAD, BILAT [facility] [address] [place], [place] [address] DIAG MAMM W/CAD, BILAT MR#: [id number] Acct: [id number] Name: FRANKO SARMIENTO Rep #: [id number] : 1960 F 64 From: Dennis bose MD PCP: Dr. Joel Gaston MD Status: [facility] Study: DIAG MAMM W/CAD, BILAT Date of Exam: 07/29/24 Exam# [id number] Ordering Dr: Lydia Pandya EXAM: DIAG MAMM W/CAD, BILAT 07/29/2024 CLINICAL HISTORY: F, Age 64 y/o, left breast pain. TECHNIQUE: Bilateral Diagnostic digital breast tomosynthesis with 2D and 3D images. Computer aided detection. COMPARISON: Prior exam(s) dated July 09, 2023. FINDINGS: TISSUE DENSITY: The breast tissue is composed of scattered areas of fibroglandular density. Bilateral Breast Mammographic Findings: No significant masses, calcifications or other abnormalities are identified. Once again, a tissue clip marker is seen within a 9 mm well-defined nodule in the inferior medial aspect of the left breast. A tissue clip marker is also seen in the slightly upper medial aspect of the left breast from prior biopsies. Stable examination. With the patient's history of left breast pain, targeted sonographic correlation recommended. BI/DIAG MAMM W/CAD, BILAT IMPRESSION: Stable examination. OVERALL FINAL ASSESSMENT BI-RADS 0: INCOMPLETE - NEED ADDITIONAL IMAGING EVALUATION. RECOMMENDATION: Ultrasound Recommended A letter with findings and recommendations will be mailed to the patient. Reading Location: [facility] CC: ALLISON Pandya; Dr. Joel Gaston MD Mobile Pet Groomer: Signed [facility] Pelvic w/ Transvaginalon Pelvic w/ Transvaginal [facility] [address] [place] [address] Pelvic w/ Transvaginal MR#: [id number] Acct: [id number] Name: FRANKO SARMIENTO Rep #: [id number] : 1960 F 64 From: Dennis bose MD PCP: Dr. Joel Gaston MD Status: [facility] Study: Pelvic w/ Transvaginal Date of Exam: 07/29/24 Exam# [id number] Ordering Dr: Lydia Pandya FREIGHT HUSTLERHetal PROCEDURE: PELVIC W/ TRANSVAGINAL REASON FOR EXAM: PELVIC PAIN Patient is postmenopausal. TECHNIQUE: PELVIC W/ TRANSVAGINAL COMPARISON: Prior study dated February 06, 2024. FINDINGS: Measurements: Uterus: 6.2 cm x 4.4 cm x 3.1 cm with a volume of 43.07 mL Endometrial Thickness: 5 mm. This is thickened for the post menopausal state. Heterogeneous appearance with focal calcifications. Right Ovary: Not visualized Left Ovary: Not visualized TRANSABDOMINAL: Uterus: Heterogeneous myometrium suggestive of fibroid change although no focal fibroid is seen. Endometrium: Endometrium measures 5 mm. This is thickened for patient's postmenopausal state. Clinical correlation recommended. Right ovary: Not visualized. Left ovary: Not visualized. Other: No large pelvic mass identified. Transvaginal sonography was performed to better visualize the endometrium. TRANSVAGINAL: Uterus: Retroverted. Endometrium: Thickened endometrium as described. Right ovary: Not visualized. Left ovary: Not visualized. Other adnexal findings: None. Cul-de-sac: No free intraperitoneal fluid identified. Tenderness: No tenderness US/Pelvic w/ Transvaginal IMPRESSION: Endometrial thickening. Further clinical correlation recommended. Fibroid changes of the uterus. Reading Location: [place] [address] CC: ALLISON Pandya; Dr. Joel Gaston MD Mobile Pet Groomer: Signed [facility] Permit Review Assistant Office Visit Reporton 07-07-2024 Permit Review Assistant Office Visit Report [facility] [address], [address] [place] [address] OFFICE VISIT Date of Service: 07/07/24 MR#: [id number] Acct: [id number] Name: FRANKO SARMIENTO Rep #: [id number] : 1960 Provider: ALLISON Owens Age/Sex: 64/F Location: [facility] [place] Status: Signed Intake Vital Signs 12/17/23 10:41 06/07/24 09:27 07/07/24 13:19 Height 5 ft 7 in 5 ft 7 in 5 ft 7 in Weight: 160 lb 6 oz BMI 25.1 BP 114/69 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 Colon cancer screenin--[facility]--follow up 3 years; normal. Other preventative health [...] facial exam (more content not included)... [facility] Orthopedic Visit Reporton Orthopedic Visit Report [facility] [address] [place] [address] OFFICE VISIT Date of Service: 06/07/24 MR#: [id number] Acct: [id number] Name: FRANKO SARMIENTO Rep #: [id number] : 1960 Provider: ELIZABETH Hilario Age/Sex: 64/F Location: [facility] [place] Status: Signed Intake Vital Signs 04/12/24 08:23 [...] home: Yes additional social history: - Jose [facility] Details: This documentation accurately reflects the service provided and the decisions made by me, ELIZABETH Hilario 06/07/24926. Part of today???s visit was documented by [...] tenderness. Co (more content not included)... [facility] Magnetic resonance imaging r eportOrdered By: Michael Alan on 05-22-2024 Study report [facility] [address] [place] [address] Spine Thoracic (Routine) MR#: [id number] Acct: [id number] Name: FRANKO SARMIENTO Rep #: [id number] : 1960 F 64 From: Jose Raul Alan DO PCP: Dr. Joel Gaston MD Status: REG CL I Study:Spine Thoracic (Routine) Date of Exam: 05/22/24 Exam# [id number] Ordering Dr: Danyel Angela PROCEDURE: MRI SPINE [...] ELIZABETH Hilario; Dr. Joel Gaston MD ~ Mobile Pet Groomer: Signed [facility] Spine Thoracic (Routine)on 0 05-22-2024 Spine Thoracic (Routine) [facility] [address] [place] [address] [id number] Spine Thoracic (Routine) MR#: [id number] Acct: [id number] Name: FRANKO SARMIENTO Rep #: [id number] : 1960 F 64 From: Michael Gonzales PCP: Dr. Joel Gaston MD Status: REG CLI Study: Spine Thoracic (Routine) Date of Exam: Exam# [id number] Ordering Dr: Cris Angela PROCEDURE: MRI SPINE [...] CC: ELIZABETH Hilario; Dr. Joel Gaston MD Mobile Pet Groomer: Signed [facility] Bedside Glucoseon 04-12-2024 FINGERSTICK GLU 132 mg/dL High 74-106 [facility] Comment on above: Result Comment: [place] OF PATIENT CARE PER NURSING PROTOCOL Performed By: #### L 501.080 ####[facility] [id number] [place], [address] Colonoscopy Reporton 025 Colonoscopy Report [facility] Medical Records Department [address] [place] [address] Colonoscopy Report MR#: [id number] Acct: [id number] Name: FRANKO SARMIENTO Rep #: [id number] : 1960 64 From: Ashley Rodriguez MD PCP: Dr. Joel Gaston MD Status:[facility] Patient Name: Franko Sarmiento Procedure Date: 04/12/2024 [...] pathology results. Procedure Code(s): --- Professional --- 36014, PT, Colonoscopy, flexible; with biopsy, single or multiple Diagnosis Code(s): --- Professional --- Z86.010, Personal history of colonic polyps D12.8, Benign neoplasm of rectum D12.5, Benign neoplasm of sigmoid colon D12.0, Benign neoplasm of cecum CPT copyright 2021 [employer]. All rights reserved. The codes documented in this report are preliminary and upon inspector materials and processes review may be revised to meet current compliance requirements. MD Ashley Alvares MD 04/12/2024 9:48:50 AM This report has been signed electronically. Number of Addenda: 0 Note Initiated On: 04/12/2024 9:03 AM 04/12/24 0948 Date Ashley Mccormick Signature: Date (if indicated) CC: Dr. Joel Gaston MD; Dr. Ashley Rodriguez MD Date Dictated: 04/12/24902 Date Transcribed: Mobile Pet Groomer: TR Signed [facility] deOrdered By: Ashley Rodriguez on 04-12-2024 Bedside Glucose (Misc Panel) 132 mg/dL High 74-106 [facility] Comment on above: MANAGEMENT OF PATIEN T CARE PER NURSING PROTOCOL Glucose [Mass/Vol] 132 mg/dL High 74-106 [facility] Comment on above: MANAGEMENT OF PATIEN T CARE PER NURSING PROTOCOL MR/POSTOP.ANEon 04-12-2024 MR/POSTOP.[facility] Medical Records Department [address] [address] Anesthesia Postop Eval I 04/12/24950 MR#: [id number] Acct: [id number] Name: FRANKO SARMIENTO Rep #: [id number] : 1960 64 From: Sherwin Jefferson PCP: Dr. Joel Gaston MD Status:REG [facility] Y Race: C Location: EN Anesthesia: Postop [...] Date Sherwin Mccormick Signature: Date CC: Signed [facility] MR/[id number] 04-12-2024 MR/POSTOPAN2 [facility] Medical Records Department [address] [place] [address] Anesthesia Postop Eval II 04/12/24 1038 MR#: [id number] Acct: [id number] Name: FRANKO SARMIENTO Rep #: [id number] : 1960 64 From: Yaya Reardon MD [...] No Vomiting: No 04/12/24 1039 Date Yaya Reardon MD Cosigner Signature: Date CC: Signed [facility] Surgery Specimen Level Dieter 04-12-2024 Surgery Specimen Level IV ---- Patient Age/Sex Location Account Attending Physician ---- FRANKO SARMIENTO 64/ EN [id number] Dr. Ashley Rodriguez MD ---- Specimen: [id number] Received: 04/12/24 Status: DAVID Nunez Num: [id number] Spec Type: COLON BX Subm Dr: Dr. Ahsley Rodriguez MD HEADER OPERATION: Colonoscopy with biopsy [...] totally submitted in one cassette. 04/12/2024 TC: CPT:63702q8 ---- Patient Age/Sex Location Account Attending Physician ---- FRANKO SARMIENTO 64/F EN [id number] Dr. Ashley Rodriguez MD ---- Signed (signature on file) Dr. Giovanna Umanzor MD 04/13/24 1525 ---- [facility] Comment on above: Performed By: #### P SUIV #### [facility] [address] [place], [place], [address] Orthopedic Visit Reporton Orthopedic Visit Report [facility] [address] [place] [address] [address] [place], [place] [address] OFFICE VISIT Date of Service: 03/19/24 MR#: [id number] Acct: [id number] Name: FRANKO SARMIENTO Rep #: [id number] : 1960 Provider: ELIZABETH Hilario Age/Sex: 64/F Location: [facility] [place] Status: Signed Intake Vital Signs 02/27/24 14:24 [...] home: Yes additional social history: - Jose [facility] THORACIC SPINE Chief Complaint: thoracic spine pain [...] pain ( (more content not included)... [facility] Thoracic Spine 2 Viewson Thoracic Spine 2 Views [facility] Imaging Services [address] [place], [place] [address] Thoracic Spine 2 Views MR#: [id number] Acct: [id number] Name: FRANKO SARMIENTO Rep #: [id number] : 1960 F 64 From: Sukh An MD PCP: Dr. Joel Gaston MD Status: REG CLI Study: Thoracic Spine 2 Views Date of Exam: 02/27/24 Exam# [id number] Ordering Dr: Jole Gaston MD [id number] STUDY: X-RAY - THORACIC SPINE REASON FOR [...] EST , CC: Dr. Joel Gaston MD Mobile Pet Groomer: Signed [facility] No Panel Informationon 02-17 POC Nasal Swab RSV Negative [facility] POC SARS CoV-2 Antigen Negative [facility] Urgent Care Visit Reporton 0 02-18-2024 Urgent Care Visit Report [facility] [address], [address] [place] [address] OFFICE VISIT Date of Service: 02/18/24 MR#: [id number] Acct: [id number] Name: FRANKO SARMIENTO Rep #: [id number] : 1960 Provider: ELIZABETH Ornelas Age/Sex: 64/F Location: [facility] [place].[facility] Status: Signed Intake Vital Signs 01/02/24 13:43 [...] cough, fatigue, congest, drainage, EDWARDS, rib pain Round Corner Cutter Operator Required: No Is patient in pain?: No [...] habitus Orientation: alert, awake and oriented x3 HENWI Head: normal to inspection Ears: hearing grossly [...] Acute maxillary (more content not included)... [facility] Pelvic w/ Transvaginalon Pelvic w/ Transvaginal [facility] Imaging Services [address] [place] [address] Pelvic w/ Transvaginal MR#: [id number] Acct: [id number] Name: FRANKO SARMIENTO Rep #: [id number] : 1960 F 64 From: Teddy Renteria PCP: Dr. Joel Gaston MD Status: REG CLI Study: Pelvic w/ Transvaginal Date of Exam: 02/06/24 Exam# [id number] Ordering Dr: Brit Blount DO [id number] STUDY: ULTRASOUND OF THE FEMALE PELVIS - [...] Joel Gaston MD; Dr. Brit Blount DO Mobile Pet Groomer: Signed [facility] Permit Review Assistant Office Visit Reporton 2024 Permit Review Assistant Office Visit Report [facility] [address], [address] [place] [address] OFFICE VISIT Date of Service: 01/02/24 MR#: [id number] Acct: [id number] Name: FRANKO SARMIENTO Rep #: [id number] : 1960 Provider: Dr. Brit Fitzpatrick DO Age/Sex: 63/F Location: [facility] [place] Status: Signed Intake Vital Signs 12/17/23 10:41 01/02/24 13:43 01/02/24 13:43 Height 5 ft 7 in 5 ft 7 in 5 ft 7 in Weight: 158 lb 159 lb BMI 24.7 24.9 BP 103/68 128/81 H Intake Visit Reasons: EMB Round Corner Cutter Operator Required: No Is patient in pain?: No [...] atypia and had this diagnosed by Dexter HANKINS Const ROS Unobtainable: All systems reviewed are unremarkable [...] and sen (more content not included)... [facility] Surgery Specimen Level Dieter 2024 Surgery Specimen Level IV ---- Patient Age/Sex Location Account Attending Physician ---- FRANKO SARMIENTO/F LABSLENI [id number] Dexter Payne ---- Specimen: [id number] Received: 01/02/24 Status: DAVID Nunez Num: [id number] Spec Type: JOSE BX/C Blanka Dr: Dr. Brit Blount DO HEADER OPERATION: Endometrial biopsy PRE-OP DIAGNOSIS: Simple endometrial hyperplasia without atypia TISSUE SUBMITTED: Endometrial lining ---- MICROSCOPIC DIAGNOSIS Endometrium, biopsy: Rare strips of benign glandular and squamous mucosa. See comment. AM. 01/06/2024 COMMENT The specimen primarily consists of [...] submitted in one cassette. AM. 01/05/2024 TC:5 CPT:73852 ---- Patient Age/Sex Location Account Attending Physician ---- FRANKO SARMIENTO/F LABSPEC [id number] Dexter Payne ---- Signed (signature on file) Dr. Lei Hummel, DO 01/06/24 1404 ---- [facility] Comment on above: Performed By: #### P SUIV ####[facility] [id number] [place], [place], [id number] Permit Review Assistant Office Visit Reporton 12-17-2023 Permit Review Assistant Office Visit Report [facility] [address], [address] [place] [address] OFFICE VISIT Date of Service: 12/17/23 MR#: [id number] Acct: [id number] Name: FRANKO SARMIENTO Rep #: [id number] : 1960 Provider: Dr. Candice bob MD Age/Sex: 63/F Location: [facility] [place] Status: Signed Intake Vital Signs 09/03/23 13:23 12/17/23 10:41 Height 5 ft 7 in 5 ft 7 in Weight: 158 lb BMI 24.7 BP 103/68 Intake Visit Reasons: EMB Round Corner Cutter Operator Required: No Is patient in pain?: Yes [...] Labor Lgth Anesthesia Del Locatn Provider FOB Sussy Baum HPI EMB Details: FRANKO SARMIENTO is a [...] and norm (more content not included)... [facility] Surgery Specimen Level Dieter 12-17-2023 Surgery Specimen Level IV ---- Patient Age/Sex Location Account Attending Physician ---- FRANKO SARMIENTO 63/F LABSPEC [id number] Dr. Candice Ravi MD ---- Specimen: [id number] Received: 12/17/23 Status: DAVID Nunez Num: [id number] Spec Type: JOSE ISLAS/C Blanka Dr: Dr. Candice Ravi MD HEADER OPERATION: Endometrial biopsy PRE-OP DIAGNOSIS: Simple endometrial hyperplasia without atypia TISSUE SUBMITTED: Endometrial tissue ---- MICROSCOPIC DIAGNOSIS Endometrial biopsy: Fragments of benign ectocervical epithelium. Numerous degenerated and desquamated squamous epithelial cells. A fragment of adipose tissue. See comment. . 12/19/2023 COMMENT Endometrial tissue is not identified in the specimen. Please make reference to previous specimen [id number] endometrial polyps and curettings with diagnosis of [...] specimen is totally submitted in one cassette. . 12/18/2023 TC: Can not code CPT:49653 ---- Patient Age/Sex Location Account Attending Physician ---- FRANKO SARMIENTO 63/F LABSPEC [id number] Dr. Candice Ravi MD ---- Signed (signature on file) Dr. Carlos Alberto Gonzalez MD 12/19/23 1248 ---- [facility] Comment on above: Performed By: #### P NARGIS #### [facility] [address] [place], [place], [id number] Dexa Bone Density Studyon Dexa Bone Density Study [facility] Imaging Services [address] [place], [place] [address] Dexa Bone Density Study MR#: [id number] Acct: [id number] Name: FRANKO SARMIENTO Rep #: [id number] : 1960 F 63 From: Dennis bose MD PCP: Dr. Joel Gaston MD Status: REG CLI Study: Dexa Bone Density Study Date of Exam: 10/08/23 Exam# [id number] Ordering Dr: Joel Gaston MD [id number] STUDY: DUAL ENERGY X-RAY ABSORPTIOMETRY / DXA [...] [employer] www [email or web address] Electronically Signed: Dennis Rma MD at 10:57 EDT Reading Location ID and State: [facility] / [place] , Service support , CC: Dr. Joel Gaston MD Mobile Pet Groomer: Signed [facility] Chest PA and Lateralon 10-05 Chest PA and Lateral [facility] Imaging Services [address] [place], [place] [address] Chest PA and Lateral MR#: [id number] Acct: [id number] Name: FRANKO SARMIENTO Rep #: [id number] : 1960 F 63 From: Sherwin Armendariz MD PCP: Dr. Joel Gaston MD Status: REG CLI Study: Chest PA and Lateral Date of Exam: 10/06/23 Exam# [id number] Ordering Dr: Joel Gaston MD [id number] STUDY: X-RAY CHEST REASON FOR EXAM: Female, [...] Signed: Sherwin Armendariz MD at 13:45 EDT Reading Location ID and State: [facility] / [place] , Service support , CC: Dr. Joel Gaston MD Mobile Pet Groomer: Signed [facility] Urine Cultureon 09-04-2023 URC Culture exhibits no growth. [facility] Comment on above: Performed By: #### M 100.2200 ####[facility] [id number] [place], [address] Permit Review Assistant Office Visit Reporton 09-03-2023 Permit Review Assistant Office Visit Report [facility] [address] [place] [address] OFFICE VISIT Date of Service: 09/03/23 MR#: [id number] Acct: [id number] Name: GUILLERMINAFRANKO Rep #: [id number] : 1960 Provider: Dr. Candice bbo MD Age/Sex: 63/F Location: [facility] [place] Status: Signed Intake Vital Signs 06/23/23 10:20 09/02/23 08:39 09/03/23 13:22 09/03/23 13:23 Height 5 ft 6 in 5 ft 7 in 5 ft 7 in 5 ft 7 in Weight: 151 lb BMI 23.6 BP 117/77 Intake Visit Reasons: MEDICATION F/U Round Corner Cutter Operator Required: No Is patient in pain?: No [...] home: Yes additional social history: - Jose HPI MEDICATION F/U Details: FRANKO SARMIENTO is a [...] Locatn Provider FOB Unknown Madi Unknown Bautista Tripp Constitutional: Reports system reviewed and no additional complaints, except as documented GI GI: Reports system reviewed and no additional complaints, except as documented Exam Const General: cooperative, healthy appearing, comfortable, no acute distress and well developed Orientation: alert HENWI Head: normal to inspection and normocephalic Ears: [...] (1) Friable cervix: Status: Acute Comment: 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 Very blue, ecchymotic in appearance. Thin tissue, easily bleeds. Cervical stenosis (more content not included)... [facility] Absolute lymphocyte countOrd ered By: [facility] on 04-25-2023 Lymphocytes Auto (Unsp spec) [#/Vol] 2.39 10*3/uL 0.83-4.51 [facility] Automated lymphocyte count a s percentage of total leukocytesOrdered By: [facility] on 04-25-2023 Lymphocytes/100 WBC Auto (Unsp spec) 36.3 % 19-41 [facility] Basophil percentageOrdered B y: [facility] on 04-25-2023 Basophils/100 WBC (Bld) 0.2 % 0-1 [facility] Bilirubin [Mass/Vol] 0.60 mg/dL 0.20-1.00 [facility] Comment on above: For patients on eltr ombopag therapy, use of Dimension Drummond TBIL is not recommended. Chloride [Moles/Vol] 112 mmol/L 98-107 [facility] Cholesterol [Mass/Vol] 184 mg/dL <200 [facility] Comment on above: <200 mg/dL Desirable 200-240 mg/dL Borderline >240 mg/dL High Risk Eosinophils/100 WBC (Bld) 3.0 % 0-5 [facility] Glucose [Mass/Vol] 155 mg/dL 74-106 [facility] Comment on above: Fasting Glucose resu lt greater than or equal to 126 mg/dL suggests DIABETES MELLITUS per A.D.A. criteria. Hemoglobin (Bld) [Mass/Vol] 14.0 g/dL 12.0-15.0 [facility] Monocytes/100 WBC (Bld) 8.1 % 0-10 [facility] Neutrophils (Bld) [#/Vol] 3.4 10*3/uL 2.0-7.7 [facility] Neutrophils/100 WBC (Bld) 52.1 % 47-70 [facility] Potassium [Moles/Vol] 3.8 mmol/L 3.5-5.1 [facility] Protein [Mass/Vol] 7.0 g/dL 6.4-8.2 [facility] Sodium [Moles/Vol] 141 mmol/L 136-145 [facility] Triglyceride [Mass/Vol] 100 mg/dL <199 [facility] Comment on above: The drugs N-Acetylcy steine and Metamizole may falsely depress this assay.Serum Triglycerides Reference Interval Normal <150 mg/dL Borderline high 150 - 199 mg/dL High 200 - 499 mg/dL Very High > or = 500 mg/dL WBC (Bld) [#/Vol] 6.6 10*3/uL 4.4-11.0 [facility] Determination of erythrocyte mean corpuscular volume (MCV)Ordered By: Joel Gaston on 04-25-2023 MCV (RBC) [Entitic vol] 88.4 fL 81-99 [facility] Erythrocyte distribution wid th ratioOrdered By: [facility] on 04-25-2023 Erythrocyte distribution width (RBC) [Ratio] 13.2 % 11.6-14.6 [facility] Erythrocyte distribution wid th standard deviationOrdered By: [facility] on 04-25-2023 Erythrocyte distribution width (RBC) [Entitic vol] 42.8 fL 35.1-43.9 [facility] Hematocrit Auto (Bld) [Volum e fraction]Ordered By: [facility] on 04-25-2023 Hematocrit (Bld) [Volume fraction] 42.1 % 37-47 [facility] Immature granulocytes/100 WB C Auto (Bld)Ordered By: Joel [facility] on 04-25-2023 Immature granulocytes/100 WBC (Bld) 0.300 % 0.0-0.9 [facility] Comment on above: IG% - Immature Granu locytes (promyelocytes, myelocytes and metamyelocytes) > 1% indicates that a LEFT SHIFT is Present. Laboratory - Chemistry and C hemistry - challengeOrdered By: Joel Alek on 04-25-2023 Albumin/Globulin [Mass ratio] 1.3 {ratio} 0.9-2.4 [facility] ALP [Catalytic activity/Vol] 81 U/L 45-117 [facility] ALT [Catalytic activity/Vol] 31 U/L 13-56 [facility] Cholesterol in HDL [Mass/Vol] 45 mg/dL >40 [facility] Comment on above: The drugs N-Acetylcy steine and Metamizole may falsely depress this assay. Reference Range HDL <40 mg/dL Low HDL Cholesterol HDL >or= 60 mg/dL High HDL Cholesterol Cholesterol in LDL [Mass/Vol] 119 mg/dL 0-130 [facility] CO2 [Moles/Vol] 24.0 mmol/L 21.0-32.0 [facility] Cobalamin (Vitamin B12) [Mass/Vol] 409 pg/mL 211-911 [facility] Globulin (S) [Mass/Vol] 3.1 g/dL 2.2-4.2 [facility] Urea nitrogen/Creatinine [Mass ratio] 15.8 mg/mg 10-20 [facility] - Hematology and Cell countsOrdered By: Joel Gaston on 04-25-2023 MCH (RBC) [Entitic mass] 29.4 pg 27.0-32.0 [facility] MCHC (RBC) [Mass/Vol] 33.3 g/dL 32-36 [facility] Nucleated RBC/100 WBC (Bld) [Ratio] 0 % 0-5 [facility] Platelet mean volume (Bld) [Entitic vol] 9.1 fL 6.2-12.0 [facility] Platelets (Bld) [#/Vol] 253 10*3/uL 150-450 [facility] No Panel InformationOrdered By: Joel Gaston on 04-25-2023 Estimated GFR (MDRD) Amer 109 mL/min >60 [facility] Comment on above: GFR Calc Estimated GFR (MDRD) Non-Af Amer 90 mL/min >60 [facility] Comment on above: Non- GFR Calc Folate 17.70 ng/mL 3.1-55.4 [facility] Urine Microalbumin/Creatinin e Ratio 15.5 mg/g CRE <30 [facility] Vitamin D 25-Hydroxy 38.0 ng/mL [facility] Comment on above: Vitamin D 25(OH) Sta tus Range Deficiency <20 ng/mL (50nmol/L) Insufficiency 20 - 30 ng/mL (50 - 75 nmol/L) Sufficiency 30 - 100 ng/mL (75 - 250 nmol/L) Toxicity >100 ng/mL (>250 nmol/L) VLDL Cholesterol 20 mg/dL 5-40 [facility] RBC Auto (Bld) [#/Vol]Ordere d By: Joel Gaston on 04-25-2023 RBC (Bld) [#/Vol] 4.76 10*6/uL 4.2-5.4 [facility] Serum or plasma calcium shantel urement (mass/volume)Ordered By: Joel Gaston on 04-25-2023 Calcium [Mass/Vol] 10.1 mg/dL 8.5-10.1 [facility] Serum or plasma creatinine m easurement (mass/volume)Ordered By: Joel Gaston on 04-25-2023 Creatinine [Mass/Vol] 0.70 mg/dL 0.55-1.02 [facility] Comment on above: The validity of the calculated GFR & GFRAA in patients over 70 years has not been determined. Clinical correlation is essential. Serum or plasma urea nitroge n measurement (mass/volume)Ordered By: Joel Gaston on 04-25-2023 Urea nitrogen [Mass/Vol] 11 mg/dL 7-18 [facility] Thin prep Papanicolaou smear with manual screeningOrdered By: Joel Gaston on 04-25-2023 Thin prep Papanicolaou smear with manual screening 3.9 g/dL 3.2-5.0 [facility] Thin prep Papanicolaou smear with manual screening 11 U/L 15-37 [facility] Thin prep Papanicolaou smear with manual screening 5 5-15 [facility] Thin prep Papanicolaou smear with manual screening 17.5 mg/L NO RANGE EST. [facility] Urine creatinine measurement (mass/volume)Ordered By: Joel Gaston on 04-25-2023 Creatinine (U) [Mass/Vol] 113.00 mg/dL NO RANGE EST. [facility] Whole blood hemoglobin A1c/t otal hemoglobin ratio (mass fraction)Ordered By: Joel Gaston on 04-25-2023 HbA1c (Bld) [Mass fraction] 6.4 % 3.8-5.6 [facility] Comment on above: Normal < 5.7 % Predi abetic 5.7 - 6.4 % Diabetic >or= 6.5 % Please note range changes. Glucose Glucometer (BldC) [M ass/Vol]Ordered By: Candice Ravi on 01-14-2023 Glucose [Mass/Vol] 64 mg/dL 74-106 [facility] Comment on above: MANAGEMENT OF PATIEN T CARE PER NURSING PROTOCOL Absolute lymphocyte countOrd ered By: Candice Ravi on 11-21-2022 Lymphocytes Auto (Unsp spec) [#/Vol] 2.43 10*3/uL 0.83-4.51 [facility] Basophil percentageOrdered B y: Candice Ravi on 11-21-2022 Basophils/100 WBC (Bld) 0.4 % 0-1 [facility] Bilirubin [Mass/Vol] 0.50 mg/dL 0.20-1.00 [facility] Comment on above: For patients on eltr ombopag therapy, use of Dimension Drummond TBIL is not recommended. Chloride [Moles/Vol] 108 mmol/L 98-107 [facility] Eosinophils/100 WBC (Bld) 4.6 % 0-5 [facility] Glucose [Mass/Vol] 107 mg/dL 74-106 [facility] Comment on above: Fasting Glucose resu lt from 100 to 125 mg/dL suggests IMPAIRED HOMEOSTASIS per A.D.A. criteria. Neutrophils (Bld) [#/Vol] 4.0 10*3/uL 2.0-7.7 [facility] Neutrophils/100 WBC (Bld) 54.3 % 47-70 [facility] Potassium [Moles/Vol] 4.1 mmol/L 3.5-5.1 [facility] Protein [Mass/Vol] 7.3 g/dL 6.4-8.2 [facility] Sodium [Moles/Vol] 140 mmol/L 136-145 [facility] WBC (Bld) [#/Vol] 7.4 10*3/uL 4.4-11.0 [facility] Blood erythrocytes count (nu mber/volume)Ordered By: Candice Ravi on 11-21-2022 RBC (Bld) [#/Vol] 4.73 10*6/uL 4.2-5.4 [facility] Blood hemoglobin measurement (mass/volume)Ordered By: Candice Ravi on 11-21-2022 Hemoglobin (Bld) [Mass/Vol] 14.0 g/dL 12.0-15.0 [facility] Blood lymphocytes/100 leukoc ytesOrdered By: Candice Ravi on 11-21-2022 Lymphocytes/100 WBC (Bld) 32.8 % 19-41 [facility] Blood monocytes/100 leukocyt esOrdered By: Candice Ravi on 11-21-2022 Monocytes/100 WBC (Bld) 7.6 % 0-10 [facility] Blood platelet mean volumeOr dered By: Candice Ravi on 11-21-2022 Platelet mean volume (Bld) [Entitic vol] 8.8 fL 6.2-12.0 [facility] Culture, urineOrdered By: Mack Peres on 11-21-2022 Bacteria identified Cx Nom (U) Culture exhibits no growth. [facility] Bacteria identified Cx Nom (U) Culture exhibits no growth. [facility] Determination of erythrocyte mean corpuscular volume (MCV)Ordered By: Candice Ravi on 11-21-2022 MCV (RBC) [Entitic vol] 90.9 fL 81-99 [facility] Hematocrit Auto (Bld) [Volum e fraction]Ordered By: Candice Ravi on 11-21-2022 Hematocrit (Bld) [Volume fraction] 43.0 % 37-47 [facility] - Chemistry and C hemistry - challengeOrdered By: Candice Ravi on 11-21-2022 ALP [Catalytic activity/Vol] 84 U/L 45-117 [facility] ALT [Catalytic activity/Vol] 25 U/L 13-56 [facility] CO2 [Moles/Vol] 29.0 mmol/L 21.0-32.0 [facility] Globulin (S) [Mass/Vol] 3.6 g/dL 2.2-4.2 [facility] Urea nitrogen/Creatinine [Mass ratio] 24.2 mg/mg 10-20 [facility] - Chemistry and C hemistry - challengeon 11-21-2022 Bilirubin Ql (U) Negative [facility] Glucose Ql (U) Negative [facility] Ketones Ql (U) Trace (5) [facility] pH (U) 5 [pH] [facility] Specific gravity (U) [Rel density] 1.010 [facility] Urobilinogen (U) [Mass/Vol] Negative [facility] - Hematology and Cell countsOrdered By: Candice Ravi on 11-21-2022 Erythrocyte distribution width (RBC) [Entitic vol] 42.0 fL 35.1-43.9 [facility] Erythrocyte distribution width (RBC) [Ratio] 12.7 % 11.6-14.6 [facility] Immature granulocytes/100 WBC (Bld) 0.300 % 0.0-0.9 [facility] Comment on above: IG% - Immature Granu locytes (promyelocytes, myelocytes and metamyelocytes) > 1% indicates that a LEFT SHIFT is Present. MCH (RBC) [Entitic mass] 29.6 pg 27.0-32.0 [facility] Nucleated RBC/100 WBC (Bld) [Ratio] 0 % 0-5 [facility] - Hematology and Cell countson 11-21-2022 Hemoglobin Ql (U) Negative [facility] - Specimen inform ationon 11-21-2022 Clarity (U) Clear [facility] Color (U) YELLOW [facility] - Urinalysison Nitrite Ql (U) Negative [facility] Protein Ql (U) Negative [facility] MCHC Auto (RBC) [Mass/Vol]Or dered By: Candice Ravi on 11-21-2022 MCHC (RBC) [Mass/Vol] 32.6 g/dL 32-36 [facility] No Panel InformationOrdered By: Candice Ravi on 11-21-2022 Estimated GFR (MDRD) Amer 124 mL/min >60 [facility] Comment on above: GFR Calc Estimated GFR (MDRD) Non-Af Amer 103 mL/min >60 [facility] Comment on above: Non- GFR Calc No Panel Informationon 11-21 Urine Leukocytes Negatve [facility] Urine Non-Hemolyzed Blood Negative [facility] Platelets bldOrdered By: Ricardo Ravi on 11-21-2022 Platelets (Bld) [#/Vol] 247 10*3/uL 150-450 [facility] Serum or plasma albumin shantel urement (mass/volume)Ordered By: Candice Ravi on 11-21-2022 Albumin [Mass/Vol] 3.7 g/dL 3.2-5.0 [facility] Serum or plasma albumin/glob ulin mass ratioOrdered By: Candice Ravi on 11-21-2022 Albumin/Globulin [Mass ratio] 1.0 {ratio} 0.9-2.4 [facility] Serum or plasma calcium shantel urement (mass/volume)Ordered By: Candice Ravi on 11-21-2022 Calcium [Mass/Vol] 10.4 mg/dL 8.5-10.1 [facility] Serum or plasma creatinine m easurement (mass/volume)Ordered By: Candice Ravi on 11-21-2022 Creatinine [Mass/Vol] 0.62 mg/dL 0.55-1.02 [facility] Comment on above: The validity of the calculated GFR & GFRAA in patients over 70 years has not been determined. Clinical correlation is essential. Serum or plasma urea nitroge n measurement (mass/volume)Ordered By: Candice Ravi on 11-21-2022 Urea nitrogen [Mass/Vol] 15 mg/dL 7-18 [facility] Thin prep Papanicolaou smear with manual screeningOrdered By: Candice Ravi on 11-21-2022 Thin prep Papanicolaou smear with manual screening 10 U/L 15-37 [facility] Thin prep Papanicolaou smear with manual screening 3 5-15 [facility] Whole blood hemoglobin A1c/t otal hemoglobin ratio (mass fraction)Ordered By: Candice Ravi on 11-21-2022 HbA1c (Bld) [Mass fraction] 5.7 % 3.8-5.6 [facility] Comment on above: Normal < 5.7 % Predi abetic 5.7 - 6.4 % Diabetic >or= 6.5 % Please note range changes. Laboratory - Chemistry and C hemistry - challengeon 06-11-2022 Bilirubin Ql (U) Negative [facility] Glucose Ql (U) Negative [facility] Ketones Ql (U) Negative [facility] pH (U) 5.0 [pH] [facility] Specific gravity (U) [Rel density] 1.005 [facility] Urobilinogen (U) [Mass/Vol] Negative [facility] Laboratory - Hematology and Cell countson 06-11-2022 Hemoglobin Ql (U) Negative [facility] Laboratory - Specimen inform ationon 06-11-2022 Clarity (U) Clear [facility] Color (U) YELLOW [facility] Laboratory - Urinalysison Nitrite Ql (U) Negative [facility] Protein Ql (U) Negative [facility] No Panel Informationon 06-11 Urine Leukocytes Negatve [facility] Urine Non-Hemolyzed Blood [facility] Basophil percentageon 2021 Basophil percentage 0 SEEN /hpf 0-5 [facility] Work Phone: Bilirubin Test strip Ql (U)o n 10-03-2021 Bilirubin Ql (U) Negative Negative [facility] Work Phone: Ketones Test strip Ql (U)on 10-03-2021 Ketones Ql (U) Negative Negative [facility] Work Phone: Mucus LM Ql (Urine sed)on Mucus Ql (Urine sed) 0 SEEN /hpf [facility] Work Phone: Nitrite Test strip Ql (U)on 10-03-2021 Nitrite Ql (U) Negative Negative [facility] Work Phone: Protein Test strip Ql (U)on 10-03-2021 Protein Ql (U) Negative Negative [facility] Work Phone: Squamous epithelial cells de tection in urine sediment by light microscopyon 10-03-2021 Epithelial cells.squamous LM Ql (Urine sed) 0 SEEN /hpf 5-10 [facility] Work Phone: Urine blood detectionon 09-11 RBC Ql (U) Negative Negative [facility] Work Phone: RBC Ql (U) 0 SEEN /hpf 0-5 [facility] Work Phone: Urine clarityon 10-03-2021 Clarity (U) Clear Clear [facility] Work Phone: Urine color determinationon 10-03-2021 Color (U) Yellow Yellow [facility] Work Phone: Urine glucose detectionon Glucose Ql (U) Normal mg/dl Normal [facility] Work Phone: Urine leukocyte esterase det ection by dipstickon 10-03-2021 Leukocyte esterase Test strip Ql (U) 100 /ul Negative [facility] Work Phone: Urine pHon 10-03-2021 pH (U) 6.0 [pH] 5.0 - 8.0 [facility] Work Phone: Urine sediment bacteria coun t by microscopy (number/high power field)on 10-03-2021 Bacteria LM.HPF (Urine sed) [#/Area] 0 /[HPF] None Seen [facility] Work Phone: Urine specific gravity measu rementon 10-03-2021 Specific gravity (U) [Rel density] 1.010 1.002-1.030 [facility] Work Phone: Urobilinogen Auto test strip Ql (U)on 10-03-2021 Urobilinogen Ql (U) Normal mg/dl Normal [facility] Work Phone: Absolute lymphocyte counton 10-01-2021 Lymphocytes Auto (Unsp spec) [#/Vol] 1.86 10*3/uL 0.83-4.51 [facility] Work Phone: Basophil percentageon 2021 Basophils/100 WBC (Bld) 0.2 % 0-1 [facility] Work Phone: Bilirubin [Mass/Vol] 0.50 mg/dL 0.20-1.00 [facility] Work Phone: Comment on above: For patients on eltr ombopag therapy, use of Dimension [place] TBIL is not recommended. Chloride [Moles/Vol] 108 mmol/L 98-107 [facility] Work Phone: Cholesterol [Mass/Vol] 205 mg/dL <200 [facility] Work Phone: Comment on above: <200 mg/dL Desirable 200-240 mg/dL Borderline >240 mg/dL High Risk Eosinophils/100 WBC (Bld) 4.8 % 0-5 [facility] Work Phone: Glucose [Mass/Vol] 113 mg/dL 74-106 [facility] Work Phone: Comment on above: Fasting Glucose resu lt from 100 to 125 mg/dL suggests IMPAIRED HOMEOSTASIS per A.D.A. criteria. Neutrophils (Bld) [#/Vol] 2.8 10*3/uL 2.0-7.7 [facility] Work Phone: Neutrophils/100 WBC (Bld) 51.4 % 47-70 [facility] Work Phone: Potassium [Moles/Vol] 4.2 mmol/L 3.5-5.1 [facility] Work Phone: Protein [Mass/Vol] 7.0 g/dL 6.4-8.2 [facility] Work Phone: Sodium [Moles/Vol] 140 mmol/L 136-145 [facility] Work Phone: Triglyceride [Mass/Vol] 124 mg/dL <199 [facility] Work Phone: Comment on above: The drugs N-Acetylcy steine and Metamizole may falsely depress this assay.Serum Triglycerides Reference Interval Normal <150 mg/dL Borderline high 150 - 199 mg/dL High 200 - 499 mg/dL Very High > or = 500 mg/dL WBC (Bld) [#/Vol] 5.4 10*3/uL 4.4-11.0 [facility] Work Phone: Blood erythrocytes count (nu mber/volume)on 10-01-2021 RBC (Bld) [#/Vol] 4.62 10*6/uL 4.2-5.4 [facility] Work Phone: Blood hemoglobin measurement (mass/volume)on 10-01-2021 Hemoglobin (Bld) [Mass/Vol] 14.0 g/dL 12.0-15.0 [facility] Work Phone: Blood lymphocytes/100 leukoc yteson 10-01-2021 Lymphocytes/100 WBC (Bld) 34.2 % 19-41 [facility] Work Phone: Blood monocytes/100 leukocyt eson 10-01-2021 Monocytes/100 WBC (Bld) 9.2 % 0-10 [facility] Work Phone: Blood platelet mean volumeon 10-01-2021 Platelet mean volume (Bld) [Entitic vol] 9.2 fL 6.2-12.0 [facility] Work Phone: Determination of erythrocyte mean corpuscular volume (MCV)on 10-01-2021 MCV (RBC) [Entitic vol] 91.3 fL 81-99 [facility] Work Phone: Hematocrit Auto (Bld) [Volum e fraction]on 10-01-2021 Hematocrit (Bld) [Volume fraction] 42.2 % 37-47 [facility] Work Phone: Laboratory - Chemistry and C hemistry - challengeon 10-01-2021 ALP [Catalytic activity/Vol] 91 U/L 45-117 [facility] Work Phone: ALT [Catalytic activity/Vol] 24 U/L 13-56 [facility] Work Phone: CO2 [Moles/Vol] 25.0 mmol/L 21.0-32.0 [facility] Work Phone: Globulin (S) [Mass/Vol] 3.2 g/dL 2.2-4.2 [facility] Work Phone: Urea nitrogen/Creatinine [Mass ratio] 21.3 mg/mg 10-20 [facility] Work Phone: Laboratory - Hematology and Cell countson 10-01-2021 Erythrocyte distribution width (RBC) [Entitic vol] 44.1 fL 35.1-43.9 [facility] Work Phone: Erythrocyte distribution width (RBC) [Ratio] 13.2 % 11.6-14.6 [facility] Work Phone: Immature granulocytes/100 WBC (Bld) 0.200 % 0.0-0.9 [facility] Work Phone: Comment on above: IG% - Immature Granu locytes (promyelocytes, myelocytes and metamyelocytes) > 1% indicates that a LEFT SHIFT is Present. MCH (RBC) [Entitic mass] 30.3 pg 27.0-32.0 [facility] Work Phone: Nucleated RBC/100 WBC (Bld) [Ratio] 0 % 0-5 [facility] Work Phone: MCHC Auto (RBC) [Mass/Vol]on 10-01-2021 MCHC (RBC) [Mass/Vol] 33.2 g/dL 32-36 [facility] Work Phone: No Panel Informationon 10-01 Estimated GFR (MDRD) Amer 127 mL/min >60 [facility] Work Phone: Comment on above: GFR Calc Estimated GFR (MDRD) Non-Af Amer 105 mL/min >60 [facility] Work Phone: Comment on above: Non- GFR Calc Thyroid Stimulating Hormone (TSH) 1.24 uIU/mL 0.358-3.74 [facility] Work Phone: Vitamin D 25-Hydroxy 19.4 ng/mL [facility] Work Phone: Comment on above: Vitamin D 25(OH) Sta tus Range Deficiency <20 ng/mL (50nmol/L) Insufficiency 20 - 30 ng/mL (50 - 75 nmol/L) Sufficiency 30 - 100 ng/mL (75 - 250 nmol/L) Toxicity >100 ng/mL (>250 nmol/L) Platelets bldon 10-01-2021 Platelets (Bld) [#/Vol] 229 10*3/uL 150-450 [facility] Work Phone: Serum or plasma albumin shantel urement (mass/volume)on 10-01-2021 Albumin [Mass/Vol] 3.8 g/dL 3.2-5.0 [facility] Work Phone: Serum or plasma albumin/glob ulin mass ratioon 10-01-2021 Albumin/Globulin [Mass ratio] 1.2 {ratio} 0.9-2.4 [facility] Work Phone: Serum or plasma calcium shantel urement (mass/volume)on 10-01-2021 Calcium [Mass/Vol] 9.4 mg/dL 8.5-10.1 [facility] Work Phone: Serum or plasma cholesterol in HDL measurement (mass/volume)on 10-01-2021 Cholesterol in HDL [Mass/Vol] 56 mg/dL >40 [facility] Work Phone: Comment on above: The drugs N-Acetylcy steine and Metamizole may falsely depress this assay. Reference Range HDL <40 mg/dL Low HDL Cholesterol HDL >or= 60 mg/dL High HDL Cholesterol Serum or plasma cholesterol in VLDL measurement (mass/volume)on 10-01-2021 Cholesterol in VLDL [Mass/Vol] 25 mg/dL 5-40 [facility] Work Phone: Serum or plasma creatinine m easurement (mass/volume)on 10-01-2021 Creatinine [Mass/Vol] 0.61 mg/dL 0.55-1.02 [facility] Work Phone: Comment on above: The validity of the calculated GFR & GFRAA in patients over 70 years has not been determined. Clinical correlation is essential. Serum or plasma low density lipoprotein (LDL) cholesterol measurement (mass/volume)on 10-01-2021 Cholesterol in LDL [Mass/Vol] 124 mg/dL 0-130 [facility] Work Phone: Serum or plasma urea nitroge n measurement (mass/volume)on 10-01-2021 Urea nitrogen [Mass/Vol] 13 mg/dL 7-18 [facility] Work Phone: Thin prep Papanicolaou smear with manual screeningon 10-01-2021 Thin prep Papanicolaou smear with manual screening 13 U/L 15-37 [facility] Work Phone: Thin prep Papanicolaou smear with manual screening 7 5-15 [facility] Work Phone: Whole blood hemoglobin A1c/t otal hemoglobin ratio (mass fraction)on 10-01-2021 HbA1c (Bld) [Mass fraction] 6.0 % 3.8-5.6 [facility] Work Phone: Comment on above: Normal < 5.7 % Predi abetic 5.7 - 6.4 % Diabetic >or= 6.5 % Please note range changes. Absolute lymphocyte counton 01-18-2021 Lymphocytes Auto (Unsp spec) [#/Vol] 1.51 10*3/uL 0.83-4.51 [facility] Work Phone: Basophil percentageon 2020 Chloride [Moles/Vol] 105 mmol/L 98-107 [facility] Work Phone: Cholesterol [Mass/Vol] 225 mg/dL <200 [facility] Work Phone: Comment on above: <200 mg/dL Desirable 200-240 mg/dL Borderline >240 mg/dL High Risk Eosinophils/100 WBC (Bld) 3.0 % 0-5 [facility] Work Phone: Glucose [Mass/Vol] 269 mg/dL 74-106 [facility] Work Phone: Comment on above: Glucose result great er than or equal to 200 mg/dLsuggests DIABETES MELLITUS per A.D.A. criteria.Please note revised GLUCOSE reference range effective 2017. Neutrophils (Bld) [#/Vol] 5.9 10*3/uL 2.0-7.7 [facility] Work Phone: Potassium [Moles/Vol] 4.1 mmol/L 3.5-5.1 [facility] Work Phone: Sodium [Moles/Vol] 139 mmol/L 136-145 [facility] Work Phone: Triglyceride [Mass/Vol] 225 mg/dL [facility] Work Phone: Comment on above: The drugs N-Acetylcy steine and Metamizole may falsely depress this assay.Serum Triglycerides Reference Interval Normal <150 mg/dL Borderline high 150 - 199 mg/dL High 200 - 499 mg/dL Very High > or = 500 mg/dL WBC (Bld) [#/Vol] 8.4 10*3/uL 4.4-11.0 [facility] Work Phone: Blood erythrocytes count (nu mber/volume)on 01-18-2021 RBC (Bld) [#/Vol] 5.17 10*6/uL 4.2-5.4 [facility] Work Phone: Blood hemoglobin measurement (mass/volume)on 01-18-2021 Hemoglobin (Bld) [Mass/Vol] 15.1 g/dL 12.0-15.0 [facility] Work Phone: Blood lymphocytes/100 leukoc yteson 01-18-2021 Lymphocytes/100 WBC (Bld) 18.0 % 19-41 [facility] Work Phone: Blood monocytes/100 leukocyt eson 01-18-2021 Monocytes/100 WBC (Bld) 8.3 % 0-10 [facility] Work Phone: Blood platelet mean volumeon 01-18-2021 Platelet mean volume (Bld) [Entitic vol] 9.1 fL 6.2-12.0 [facility] Work Phone: Determination of erythrocyte mean corpuscular volume (MCV)on 01-18-2021 MCV (RBC) [Entitic vol] 90.5 fL 81-99 [facility] Work Phone: Hematocrit Auto (Bld) [Volum e fraction]on 01-18-2021 Hematocrit (Bld) [Volume fraction] 46.8 % 37-47 [facility] Work Phone: Laboratory - Chemistry and C hemistry - challengeon 01-18-2021 CO2 [Moles/Vol] 27.0 mmol/L 21.0-32.0 [facility] Work Phone: Urea nitrogen/Creatinine [Mass ratio] 20.8 mg/mg 10-20 [facility] Work Phone: Laboratory - Hematology and Cell countson 01-18-2021 Basophils/100 WBC (Unsp spec) 0.2 % 0-1 [facility] Work Phone: Erythrocyte distribution width (RBC) [Entitic vol] 41.9 fL 35.1-43.9 [facility] Work Phone: Erythrocyte distribution width (RBC) [Ratio] 12.6 % 11.6-14.6 [facility] Work Phone: Immature granulocytes/100 WBC (Bld) 0.400 % 0.0-0.9 [facility] Work Phone: Comment on above: IG% - Immature Granu locytes (promyelocytes, myelocytes and metamyelocytes) > 1% indicates that a LEFT SHIFT is Present. MCH (RBC) [Entitic mass] 29.2 pg 27.0-32.0 [facility] Work Phone: Neutrophils/100 WBC (Bld) 70.1 % 47-70 [facility] Work Phone: Nucleated RBC/100 WBC (Bld) [Ratio] 0 % 0-5 [facility] Work Phone: MCHC Auto (RBC) [Mass/Vol]on 01-18-2021 MCHC (RBC) [Mass/Vol] 32.3 g/dL 32-36 [facility]: No Panel Informationon 01-18 Urine Microalbumin/Creatinin e Ratio 26.2 mg/g CRE <30 [facility] Work Phone: Estimated GFR (MDRD) Amer 124 mL/min >60 [facility] Work Phone: Comment on above: GFR Calc Estimated GFR (MDRD) Non-Af Amer 102 mL/min >60 [facility] Work Phone: Comment on above: Non- GFR Calc Platelets bldon 01-18-2021 Platelets (Bld) [#/Vol] 253 10*3/uL 150-450 [facility] Work Phone: Serum or plasma calcium shantel urement (mass/volume)on 01-18-2021 Calcium [Mass/Vol] 10.1 mg/dL 8.5-10.1 [facility] Work Phone: Serum or plasma cholesterol in HDL measurement (mass/volume)on 01-18-2021 Cholesterol in HDL [Mass/Vol] 56 mg/dL [facility] Work Phone: Comment on above: The drugs N-Acetylcy steine and Metamizole may falsely depress this assay. Reference Range HDL <40 mg/dL Low HDL Cholesterol HDL >or= 60 mg/dL High HDL Cholesterol Serum or plasma cholesterol in VLDL measurement (mass/volume)on 01-18-2021 Cholesterol in VLDL [Mass/Vol] 45 mg/dL 5-40 [facility] Work Phone: Serum or plasma creatinine m easurement (mass/volume)on 01-18-2021 Creatinine [Mass/Vol] 0.63 mg/dL 0.55-1.02 [facility] Work Phone: Comment on above: The validity of the calculated GFR & GFRAA in patients over 70 years has not been determined. Clinical correlation is essential. Serum or plasma low density lipoprotein (LDL) cholesterol measurement (mass/volume)on 01-18-2021 Cholesterol in LDL [Mass/Vol] 124 mg/dL 0-130 [facility] Work Phone: Serum or plasma urea nitroge n measurement (mass/volume)on 01-18-2021 Urea nitrogen [Mass/Vol] 13 mg/dL 7-18 [facility] Work Phone: Thin prep Papanicolaou smear with manual screeningon 01-18-2021 Thin prep Papanicolaou smear with manual screening 39.9 mg/L NO RANGE EST. [facility] Work Phone: Thin prep Papanicolaou smear with manual screening 7 5-15 [facility] Work Phone: Urine creatinine measurement (mass/volume)on 01-18-2021 Creatinine (U) [Mass/Vol] 152.00 mg/dL NO RANGE EST. [facility] Work Phone: Whole blood hemoglobin A1c/t otal hemoglobin ratio (mass fraction)on 01-18-2021 HbA1c (Bld) [Mass fraction] 9.4 % 3.8-5.6 [facility] Work Phone: Comment on above: Normal < 5.7 % Predi abetic 5.7 - 6.4 % Diabetic >or= 6.5 % Please note range changes. Culture, urine Bacteria identified Cx Nom (U) Culture exhibits no growth. [facility] Work Phone: Vital Signs Date Time Vital Sign Value Performing Clinician Joelle sales 07-07-2024 13:19-0400 Body height 170.18 cm Joel Gaston MD Work Phone: [facility] 07-07-2024 13:19-0400 Body mass index (BMI) [Ratio] 25.1 kg/m2 Joel Gaston MD Work Phone: [facility] 07-07-2024 13:19-040 Body weight 72.74 kg Joel Gaston MD Work Phone: [facility] 07-07-2024 13:19-0400 Diastolic blood pressure 69 mm[Hg] Joel Gaston MD Work Phone: [facility] 07-07-2024 13:19-0400 Systolic blood pressure 114 mm[Hg] Joel Gaston MD Work Phone: [facility] 06-07-2024 09:27-0400 Body mass index (BMI) [Ratio] 24.7 kg/m2 Joel Gaston MD Work Phone: [facility] 06-07-2024 09:27-0400 Body weight 71.66 kg Joel Gaston MD Work Phone: [facility] 04-12-2024 09:58-0500 Body temperature 97.5 [degF] Joel Gaston MD Work Phone: [facility] 04-12-2024 09:58-0500 Diastolic blood pressure 77 mm[Hg] Joel Gaston MD Work Phone: [facility] 04-12-2024 09:58-0500 Heart rate 61 /min Joel Gaston MD Work Phone: [facility] 04-12-2024 09:58-0500 Respiratory rate 16 /min Joel Gaston MD Work Phone: [facility] 04-12-2024 09:58-0500 SaO2% (BldA) [Mass fraction] 97 % Joel Gaston MD Work Phone: [facility] 04-12-2024 09:58-0500 Systolic blood pressure 106 mm[Hg] Joel Gaston MD Work Phone: [facility] 04-12-2024 08:23-0500 Body height 170.18 cm Joel Gaston MD Work Phone: [facility] 04-12-2024 08:23-0500 Body mass index (BMI) [Ratio] 24.9 kg/m2 Joel Gaston MD Work Phone: [facility] 04-12-2024 08:23-0500 Body weight 72.2 kg Joel Gaston MD Work Phone: [facility] 03-19-2024 09:36-0500 Body mass index (BMI) [Ratio] 24.9 kg/m2 Joel Gaston MD Work Phone: [facility] 03-19-2024 09:36-0500 Body weight 72.12 kg Joel Gaston MD Work Phone: [facility] 02-27-2024 14:24-0500 Body mass index (BMI) [Ratio] 24.9 kg/m2 Joel Gaston MD Work Phone: [facility] 02-27-2024 14:24-0500 Body weight 72.12 kg Joel Gaston MD Work Phone: [facility] 02-18-2024 11:17-0500 Body temperature 98.2 [degF] Joel Gaston MD Work Phone: [facility] 02-18-2024 11:17-0500 Diastolic blood pressure 66 mm[Hg] Joel Gaston MD Work Phone: [facility] 02-18-2024 11:17-0500 Heart rate 81 /min Joel Gaston MD Work Phone: [facility] 02-18-2024 11:17-0500 Respiratory rate 16 /min Joel Gaston MD Work Phone: [facility] 02-18-2024 11:17-0500 SaO2% (BldA) [Mass fraction] 96 % Joel Gaston MD Work Phone: [facility] 02-18-2024 11:17-0500 Systolic blood pressure 122 mm[Hg] Joel Gaston MD Work Phone: [facility] 01-31-2023 11:57-0500 Body temperature 97.8 [degF] Dr. Belle Miguel Work Phone: [facility] 01-31-2023 11:57-0500 Diastolic blood pressure 62 mm[Hg] Dr. Belle Miguel Work Phone: [facility] 01-31-2023 11:57-0500 Heart rate 79 /min Dr. Belle Miguel Work Phone: [facility] 01-31-2023 11:57-0500 Respiratory rate 17 /min Dr. Belle Miguel Work Phone: [facility] 01-31-2023 11:57-0500 SaO2% (BldA) [Mass fraction] 97 % Dr. Belle Miguel Work Phone: [facility] 01-31-2023 11:57-0500 Systolic blood pressure 132 mm[Hg] Dr. Belle Miguel Work Phone: [facility] 01-27-2023 11:04-0500 Body height 167.[address] Belle Miguel Work Phone: [facility] 01-27-2023 11:03-0500 Body mass index (BMI) [Ratio] 24.7 kg/m2 Dr. Belle Miguel Work Phone: [facility] 01-27-2023 11:03-0500 Body weight 69.[address] Belle Miguel Work Phone: [facility] 01-27-2023 11:03-0500 Diastolic blood pressure 80 mm[Hg] Dr. Belle Miguel Work Phone: [facility] 01-27-2023 11:03-0500 Systolic blood pressure 128 mm[Hg] Dr. Belle Miguel Work Phone: [facility] 01-14-2023 17:30-0500 Body temperature 97.8 [degF] Dr. Belle Miguel Work Phone: [facility] 01-14-2023 17:30-0500 Diastolic blood pressure 74 mm[Hg] Dr. Belle Miguel Work Phone: [facility] 01-14-2023 17:30-0500 Heart rate 62 /min Dr. Belle Miguel Work Phone: [facility] 01-14-2023 17:30-0500 Respiratory rate 14 /min Dr. Belle Miguel Work Phone: [facility] 01-14-2023 17:30-0500 SaO2% (BldA) [Mass fraction] 95 % Dr. Belle Miguel Work Phone: [facility] 01-14-2023 17:30-0500 Systolic blood pressure 124 mm[Hg] Dr. Belle Miguel Work Phone: [facility] 01-14-2023 13:21-0500 Body height 167.[address] Belle Miguel Work Phone: [facility] 01-14-2023 13:21-0500 Body mass index (BMI) [Ratio] 25.2 kg/m2 Dr. Belle Miguel Work Phone: [facility] 01-14-2023 13:21-0500 Body weight 70.[address] Belle Miguel Work Phone: [facility] 11-21-2022 11:17-0400 Body height 167.[address] Belle Migeul Work Phone: [facility] 11-21-2022 11:17-0400 Body temperature 97.5 [degF] Dr. Belle Miguel Work Phone: [facility] 11-21-2022 11:14-0400 Body mass index (BMI) [Ratio] 25 kg/m2 Dr. Belle Miguel Work Phone: [facility] 11-21-2022 11:14-0400 Body weight 70.[address] Belle Miguel Work Phone: [facility] 11-21-2022 11:14-0400 Diastolic blood pressure 70 mm[Hg] Dr. Belle Miguel Work Phone: [facility] 11-21-2022 11:14-0400 Systolic blood pressure 110 mm[Hg] Dr. Belle Miguel Work Phone: [facility] 08-28-2022 13:06-0400 Body height 167.[address] Belle Miguel Work Phone: [facility] 08-28-2022 13:02-0400 Body mass index (BMI) [Ratio] 25.4 kg/m2 Dr. Belle Miguel Work Phone: [facility] 08-28-2022 13:02-0400 Body weight 71.[address] Belle Miguel Work Phone: [facility] 08-28-2022 13:02-0400 Diastolic blood pressure 76 mm[Hg] Dr. Belle Miguel Work Phone: [facility] 08-28-2022 13:02-0400 Systolic blood pressure 120 mm[Hg] Dr. Belle Miguel Work Phone: [facility] 06-11-2022 10:13-0400 Body height 167.[address] Belle Miguel Work Phone: [facility] 06-11-2022 10:06-0400 Body mass index (BMI) [Ratio] 26 kg/m2 Dr. Belle Miguel Work Phone: [facility] 06-11-2022 10:06-0400 Body weight 73.[address] Belle Miguel Work Phone: [facility] 06-11-2022 10:06-0400 Diastolic blood pressure 68 mm[Hg] Dr. Belle Miguel Work Phone: [facility] 06-11-2022 10:06-0400 Systolic blood pressure 124 mm[Hg] Dr. Belle Miguel Work Phone: [facility] 2022 10:22-0500 Body temperature 97.1 [degF] Dr. Armando Gómez Work Phone: [facility] 2022 10:22-0500 Body weight 72.[address] Armando Gómez Work Phone: [facility] 2022 10:22-0500 Diastolic blood pressure 77 mm[Hg] Dr. Armando Gómez Work Phone: [facility] 2022 10:22-0500 Heart rate 95 /min Dr. Amrando Gómez Work Phone: [facility] 2022 10:22-0500 Respiratory rate 16 /min Dr. Armando Gómez Work Phone: [facility] 2022 10:22-0500 SaO2% (BldA) [Mass fraction] 96 % Dr. Armando Gómez Work Phone: [facility] 2022 10:22-0500 Systolic blood pressure 107 mm[Hg] Dr. Armando Gómez Work Phone: [facility] 10-03-2021 10:00-0400 Body height 167.[address] Belle Miguel Work Phone: [facility] Work Phone: 10-03-2021 10:00-0400 Body mass index (BMI) [Ratio] 25.5 kg/m2 Dr. Belle Miguel Work Phone: [facility] Work Phone: 10-03-2021 10:00-0400 Body temperature 97.5 [degF] Dr. Belle Miguel Work Phone: [facility] Work Phone: 10-03-2021 10:00-0400 Body weight 71.[address] Belle Miguel Work Phone: [facility] Work Phone: 10-03-2021 10:00-0400 Diastolic blood pressure 68 mm[Hg] Dr. Belle Miguel Work Phone: [facility] Work Phone: 10-03-2021 10:00-0400 Heart rate 73 /min Dr. Belle Miguel Work Phone: [facility] Work Phone: 10-03-2021 10:00-0400 Respiratory rate 18 /min Dr. Belle Miguel Work Phone: [facility] Work Phone: 10-03-2021 10:00-0400 Systolic blood pressure 120 mm[Hg] Dr. Belle Miguel Work Phone: [facility] Work Phone: 09-26-2021 11:28-0400 Body mass index (BMI) [Ratio] 25.7 kg/m2 Dr. Belle Miguel Work Phone: [facility] Work Phone: 09-26-2021 11:28-0400 Body weight 72.[address] Belle Miguel Work Phone: [facility] Work Phone: 09-26-2021 11:28-0400 Diastolic blood pressure 70 mm[Hg] Dr. Belle Miguel Work Phone: [facility] Work Phone: 09-26-2021 11:28-0400 Systolic blood pressure 110 mm[Hg] Dr. Belle Miguel Work Phone: [facility] Work Phone: 08-30-2021 11:51-0400 Body temperature 98.4 [degF] Dr. Belle Miguel Work Phone: [facility] Work Phone: 08-30-2021 11:51-0400 Diastolic blood pressure 72 mm[Hg] Dr. Belle Miguel Work Phone: [facility] Work Phone: 08-30-2021 11:51-0400 Heart rate 86 /min Dr. Belle Miguel Work Phone: [facility] Work Phone: 08-30-2021 11:51-0400 Respiratory rate 14 /min Dr. Belle Miguel Work Phone: [facility] Work Phone: 08-30-2021 11:51-0400 SaO2% (BldA) [Mass fraction] 98 % Dr. Belle Miguel Work Phone: [facility] Work Phone: 08-30-2021 11:51-0400 Systolic blood pressure 124 mm[Hg] Dr. Belle Miguel Work Phone: [facility] Work Phone: 04-30-2021 12:16-0400 Body height 167.[address] Armando Gómez Work Phone: [facility] Work Phone: 04-30-2021 12:16-0400 Body mass index (BMI) [Ratio] 26.4 kg/m2 Dr. Armando Gómez Work Phone: [facility] Work Phone: 04-30-2021 12:16-0400 Body temperature 97.4 [degF] Dr. Armando Gómez Work Phone: [facility] Work Phone: 04-30-2021 12:16-0400 Body weight 74.[address] Armando Gómez Work Phone: [facility] Work Phone: 04-30-2021 12:16-0400 Diastolic blood pressure 84 mm[Hg] Dr. Armando Gómez Work Phone: [facility] Work Phone: 04-30-2021 12:16-0400 Heart rate 80 /min Dr. Armando Gómez Work Phone: [facility] Work Phone: 04-30-2021 12:16-0400 Respiratory rate 16 /min Dr. Armando Gómez Work Phone: [facility] Work Phone: 04-30-2021 12:16-0400 SaO2% (BldA) [Mass fraction] 97 % Dr. Armando Gómez Work Phone: [facility] Work Phone: 04-30-2021 12:16-0400 Systolic blood pressure 124 mm[Hg] Dr. Armando Gómez Work Phone: [facility] Work Phone: 03-28-2021 08:11-0500 Body mass index (BMI) [Ratio] 26.9 kg/m2 Dr. Armando Gómez Work Phone: [facility] Work Phone: 03-28-2021 08:11-0500 Body temperature 97.5 [degF] Dr. Armando Gómez Work Phone: [facility] Work Phone: 03-28-2021 08:11-0500 Body weight 75.[address] Armando Gómez Work Phone: [facility] Work Phone: 03-28-2021 08:11-0500 Diastolic blood pressure 78 mm[Hg] Dr. Armando Gómez Work Phone: [facility] Work Phone: 03-28-2021 08:11-0500 Heart rate 96 /min Dr. Armando Gómez Work Phone: [facility] Work Phone: 03-28-2021 08:11-0500 Respiratory rate 16 /min Dr. Armando Gómez Work Phone: [facility] Work Phone: 03-28-2021 08:11-0500 SaO2% (BldA) [Mass fraction] 97 % Dr. Armando Gómez Work Phone: [facility] Work Phone: 03-28-2021 08:11-0500 Systolic blood pressure 140 mm[Hg] Dr. Armando Gómez Work Phone: [facility] Work Phone: Encounters Encounter Date Encounter Type Care Provider Facility Start: 08-23-2024 ambulatory Joel Gaston Facility:[facility] Start: 07-29-2024 End: 07-29-2024 ambulatory Joel Gaston MD Work Phone: -[facility] Start: 07-29-2024 End: 07-29-2024 Patient encounter procedure Lydia COOPER -[facility] Work Phone: Start: 07-29-2024 End: 07-29-2024 ambulatory Joel Gaston Facility:[facility] Start: 07-19-2024 ambulatory Lydia Pandya Facility :[facility] Start: 07-07-2024 End: 07-07-2024 Patient encounter procedure Lydia COOPER -[facility] Work Phone: Start: 07-07-2024 End: 07-07-2024 Patient encounter status Lydia COOPER [facility] Start: 07-07-2024 End: 07-07-2024 ambulatory Joel Gaston MD Work Phone: [facility] Work Phone: Start: 06-07-2024 End: 06-07-2024 Patient encounter procedure Cris JOHNSON -[facility] Work Phone: Start: 06-07-2024 End: 06-07-2024 ambulatory Joel Gaston Facility:[facility] Start: 05-22-2024 End: 05-22-2024 ambulatory Joel Gaston MD Work Phone: [facility] Work Phone: Start: 05-22-2024 End: 05-22-2024 Patient encounter procedure Cris JOHNSON -[facility] Work Phone: Start: 05-22-2024 End: 05-22-2024 ambulatory Joel Gaston Facility:[facility] Start: 04-12-2024 Non-patient / Non-visit Dr. Josep Rodriguez MD -[facility] Start: 04-12-2024 End: 04-12-2024 Admission to same day surgery center Dr. Ashley Rodriguez MD -Endoscopy Work Phone: Start: 04-12-2024 End: 04-12-2024 ambulatory Ashley Rodriguez Facility:[facility] Start: 03-19-2024 End: 03-19-2024 Patient encounter procedure Cris JOHNSON -[facility] Work Phone: Start: 03-19-2024 End: 03-19-2024 ambulatory Chalon Alek Facility:[facility] Start: 02-27-2024 Non-patient / Non-visit Joel Gaston MD Work Phone: -[facility] Work Phone: Start: 02-27-2024 ambulatory Chalon Alek Facility:[facility] Start: 02-27-2024 End: 02-27-[address] Joel Gaston MD -Radiology, [place] Work Phone: Start: 02-27-2024 End: 02-27-2024 ambulatory Chalon Alek Facility:[facility] Start: 02-18-2024 End: 02-18-2024 Patient encounter procedure Riley JOHNSON -[facility] Work Phone: Start: 02-18-2024 End: 02-18-2024 ambulatory Chalon Alek Facility:[facility] Start: 02-06-2024 End: 02-06-[address] Brit Blount DO -[facility] Work Phone: Start: 02-06-2024 End: 02-06-2024 ambulatory Chalon Alek Facility:[facility] Start: 2024 End: 2024 ambulatory Chalon Alek Facility:[facility] Start: 2024 End: 2024 ambulatory Chalon Alek Facility:[facility] Start: 12-17-2023 End: 12-17-2023 ambulatory Chalon Alek Facility:[facility] Start: 12-17-2023 End: 12-17-2023 ambulatory Chalon Alek Facility:[facility] Start: 10-08-2023 End: 10-08-2023 ambulatory Chalon Alek Facility:[facility] Start: 10-06-2023 End: 10-06-2023 ambulatory Chalon Alek Facility:[facility] Start: 09-17-2023 ambulatory Himanshu Cason Facility :[facility] Start: 09-03-2023 End: 09-03-2023 ambulatory Chalon Alek Facility:[facility] Start: 09-02-2023 End: 09-03-2023 ambulatory Chalon Alek Facility:[facility] Start: 04-25-2023 End: 04-25-[address] Belle Miguel Work Phone: [facility] Work Phone: Start: 04-25-2023 End: 04-25-[address] Belle Miguel Work Phone: [facility] Work Phone: Start: 01-31-2023 End: 01-31-[address] Belle Miguel Work Phone: [facility] Work Phone: Start: 01-27-2023 End: 01-27-[address] Belle Miguel Work Phone: [facility] Work Phone: Start: 01-14-2023 End: 01-14-2023 Admission to same day surgery center Dr. Belle Miguel Work Phone: [facility] Start: 01-14-2023 End: 01-14-[address] Belle Miguel Work Phone: [facility] Work Phone: Start: 01-14-2023 Non-patient / Non-visit Dr. Didi Miguel Work Phone: [facility] Start: 01-08-2023 End: 01-08-2023 Non-patient / Non-visit Dr. Blele Miguel Work Phone: [facility] Work Phone: Start: 11-21-2022 End: 11-21-[address] Belle Miguel Work Phone: [facility] Work Phone: Start: 11-21-2022 End: 11-21-[address] [facility] Start: 11-21-2022 End: 11-21-[address] Belle Miguel Work Phone: [facility] Work Phone: Start: 10-30-2022 End: 10-30-[address] Belle Miguel Work Phone: [facility] Work Phone: Start: 10-30-2022 End: 10-30-[address] [facility] Work [facility]: Start: 08-28-2022 End: 08-28-[address] [facility] Work Phone: Start: 08-28-2022 End: 08-28-[address] Belle Miguel Work Phone: [facility] Work Phone: Start: 08-14-2022 End: 08-14-[address] Belle Miguel Work Phone: [facility] Work Phone: Start: 08-14-2022 End: 08-14-[address] Belle Miguel Work Phone: [facility] Work Phone: Start: 07-03-2022 End: 07-03-[address] Belle Miguel Work Phone: [facility] Work Phone: Start: 07-03-2022 End: 07-03-[address] Belle Miguel Work Phone: [facility], [facility] Start: 06-11-2022 End: 06-11-[address] Belle Miguel Work Phone: [facility] Start: 02-20-2022 End: 02-20-[address] Belle Miguel Work Phone: [facility] Work Phone: Start: 02-20-2022 End: 02-20-[address] Belle Miguel Work Phone: [facility] Start: 2022 End: [address] Armando Gómez Work Phone: [facility] [place] Start: 11-14-2021 End: 11-14-[address] Armando Gómez Work Phone: [facility] Work Phone: Start: 11-14-2021 End: 11-14-[address] Armando Gómez Work Phone: [facility]-Physical Therapy Start: 10-05-2021 End: 10-05-[address] Belle Miguel Work Phone: [facility] Work Phone: Start: 10-05-2021 End: 10-05-[address] Belle Miguel Work Phone: [facility]-Radiology, [facility] Start: 10-03-2021 Non-patient / Non-visit Dr. Didi Miguel Work Phone: [facility] Start: 10-03-2021 End: 10-03-[address] Belle Miguel Work Phone: [facility] Work Phone: Start: 10-03-2021 End: 10-03-[address] Belle Miguel Work Phone: [facility] Start: 10-01-2021 End: 10-01-[address] Belle Miguel Work Phone: [facility] Work Phone: Start: 10-01-2021 End: 10-01-[address] Belle Miguel Work Phone: [facility]-Laboratory, [facility] Start: 09-26-2021 End: 09-26-[address] Belle Miguel Work Phone: [facility] Start: 08-30-2021 End: 08-30-[address] Belle Miguel Work Phone: [facility] Start: 05-04-2021 Non-patient / Non-visit Dr. Elizabeth Gómez Work Phone: [facility] Start: 05-04-2021 End: 05-04-[address] Armando Gómez Work Phone: [facility]-Breast Imaging - Biopsy/[place] Start: 04-30-2021 End: 04-30-[address] Armando Gómez Work Phone: [facility] Start: 04-20-2021 End: 04-20-[address] Armando Gómez Work Phone: [facility]-Outpatient Breast Imaging Start: 04-19-2021 Non-patient / Non-visit Dr. Elizabeth Gómez Work Phone: [facility] Start: 03-28-2021 End: 03-28-[address] Armando Gómez Work Phone: [facility] Start: 01-18-[address] Armando Gómez Work Phone: [facility] [place] [facility] Procedures Date Procedure Procedure Detail Performing Clinician Start: 07-29-2024 Bilateral mammography Columba Gaston MD Work Phone: Start: 07-29-2024 Pelvic echography Juan Gaston MD Work Phone: Start: 07-29-2024 Ultrasonography of breast Joel Gaston MD Work Phone: Start: 05-22-2024 MRI of thoracic spine Columba Gaston MD Work Phone: Start: 02-27-2024 Xray [...] Gómez Work Phone: Urine culture Dr. Belle Garcia hner Work Phone: Plan of Treatment Date Care Activity Detail Author Start: 04-12-2024 Colonoscopy w/biopsy single/multiple COLONOSCOPY AND BIOPSY [facility] Start: 04-12-2024 Patient discharge [facility] Start: 03-19-2024 Patient referral [facility] Work Phone: Start: 01-14-2023 Ambulation without limitation [facility] Start: 01-14-2023 Medical regimen orders management [facility] Start: 01-14-2023 Medication education [facility] Start: 01-14-2023 Patient discharge [facility] Start: 01-14-2023 Taking patient vital signs [facility] Start: 01-14-2023 Vital signs measurements [facility] Start: 01-14-2023 [facility] Start: 01-14-2023 Anes hysteroscopy&/hysterosal pingography w/bx ANESTH HYSTEROSCOPE/GRAPH [facility] Start: 01-14-2023 Hysteroscopy bx endometrium&/polypc w/wo d&c HYSTEROSCOPY BIOPSY [facility] Start: 10-03-2021 Patient referral [facility] Work Phone: Start: 10-03-2021 [facility] Work Phone: Start: 03-28-2021 Patient referral [facility] Work Phone: MG Breast - bilatera l Diagnostic [facility] Patient Education Stereotactic B reast Biopsy Discharge Instructions [facility] Work Phone: Patient referral [facility] Work Phone: Urine culture Urine Culture [facility] Work Phone: US Breast limited [facility] US Breast limited [facility] US Pelvis [facility] XR Thoracic spine 4 Views [facility] Work Phone: [facility] Immunizations Immunization Date Immunization Notes Care Provider Fa cility 06-06-2020 diphtheria, tetanus toxoids and acellular pertussis vaccine, unspecified formulation Dr. Armando Gómez Work Phone: [facility] Work Phone: 06-06-2020 tetanus toxoid, redu yolie diphtheria toxoid, and acellular pertussis vaccine, adsorbed Dr. Armando Gómez Work Phone: [facility] 05-16-2020 Covid (Pfizer) Dr. Armando velasquez Work Phone: [facility] 04-25-2020 Covid (Pfizer) Dr. Armando velasquez Work Phone: [facility] Payers Date Payer Category Payer Private Health Insurance [id number] 2023 Unknown [id number] 2023 Self-pay [id number] 2023 Medicare [id number] 2023 Unknown [id number] 2016 Unknown [id number] Unknown [id number] Unknown [address] [id number] Unknown [id number] Unknown [id number] 2.840.1.661820.3.579.2.462 Unknown [id number] 2.840.1.663133.3.579.2.462 Unknown [id number] 2.840.1.901926.3.579.2.462 Unknown [id number] 2.840.1.916138.3.579.2.462 Unknown [id number] 2.840.1.054767.3.579.2.462 Unknown [id number] 2.840.1.708644.3.579.2.462 Unknown [id number] 2.840.1.881151.3.579.2.462 Unknown [id number] 2.840.1.625221.3.579.2.462 Unknown [id number] 2.840.1.727073.3.579.2.462 Unknown [id number] 2.840.1.482108.3.579.2.462 Unknown [id number] 2.840.1.219553.3.579.2.462 Unknown [id number] 2.840.1.220615.3.579.2.462 Unknown [id number] 2.840.1.858342.3.579.2.462 Unknown [id number] 2.840.1.011284.3.579.2.462 Unknown [id number] 2.840.1.631117.3.579.2.462 Unknown [id number] 2.16.840.1.255243.3.579.2.462 Unknown [id number] 2.16.840.1.977710.3.579.2.462 Unknown [id number] 2.16.840.1.855734.3.579.2.462 Unknown [id number] 2.16840.1.303561.3.579.2.462 Unknown [id number] 2.16840.1.350998.3.579.2.462 Unknown [id number] 2.16840.1.696227.3.579.2.462 Unknown [id number] 2.0.1.876006.3.579.2.462 Social History Date Type Detail Facility Start: 04-30-2021 End: 01-31-2023 Tobacco smoking status NHIS Unknown if ever smoked [facility] Start: 1960 Sex Assigned At Female [facility] Start: 04-12-2024 End: 06-04-2024 Tobacco smoking status NHIS Never smoked tobacco (finding) [facility] Start: 05-26-2024 Sex Female (finding) [facility] NEGATED: Highlighted row Not [facility] Medical Equipment Procedure Code Equipment Code [...] Assessment Result Facility 04-12-2024 Cognitive function Voice/Name [facility] Work Phone: 04-12-2024 Cognitive function Patient Orishaina boyce Person;Place;Time [facility] Work Phone: 01-14-2023 Cognitive function Voice/Name [facility] Work Phone: Clinical Notes 01-14-2023 to 07-29-2024 Note Date & Type Note Facility 07-29-2024 Radiology Diagnostic study note [facility] Imaging Services [address] [place], [place] [id number] Pelvic w/ Transvaginal MR#: [id number] Acct: [id number] Name: FRANKO SARMIENTO Rep #: [id number] : 1960 F 64 From: Hola Ram MD PCP: Dr. Joel Gaston MD Status: REG CL I Study:Pelvic w/ Transvaginal Date of Exam: 07/29/24 Exam# [id number] Ordering Dr: Lydia Pandya PROCEDURE: PELVIC W/ TRANSVAGINAL REASON FOR EXAM: PELVIC PAIN Patient is postmenopausal. TECHNIQUE: PELVIC W/ TRANSVAGINAL COMPARISON: Prior study dated February 06, 2024. FINDINGS: Measurements: Uterus: 6.2 cm x 4.4 cm x 3.1 cm with a volume of 43.07 mL Endometrial Thickness: 5 mm. This is thickened for the post menopausal state. Heterogeneous appearance with focal calcifications. Right Ovary: Not visualized Left Ovary: Not visualized TRANSABDOMINAL: Uterus: Heterogeneous myometrium suggestive of fibroid change although no focal fibroid is seen. Endometrium: Endometrium measures 5 mm. This is thickened for patient's postmenopausal state. Clinical correlation recommended. Right ovary: Not visualized. Left ovary: Not visualized. Other: No large pelvic mass identified. Transvaginal sonography was performed to better visualize the endometrium. TRANSVAGINAL: Uterus: Retroverted. Endometrium: Thickened endometrium as described. Right ovary: Not visualized. Left ovary: Not visualized. Other adnexal findings: None. Cul-de-sac: No free intraperitoneal fluid identified. Tenderness: No tenderness US/Pelvic w/ Transvaginal IMPRESSION: Endometrial thickening. Further clinical correlation recommended. Fibroid changes of the uterus. Reading Location: [place] [address] CC: FREIGHT HUSTLER-Columba Pandya; Dr. Joel Gaston MD ~ Mobile Pet G[employer]er: Signed [facility] 07-29-2024 Radiology Diagnostic study note [facility] Imaging Services [address] [place], [place] [address] Breast Limited Unilateral MR#: [id number] Acct: [id number] Name: FRANKO SARMIENTO Rep #: [id number] : 1960 F 64 From: Hola Ram MD PCP: Dr. Joel Gaston MD Status: REG CL I Study:Breast Limited Unilateral Date of Exam: 07/29/24 Exam# [id number] Ordering Dr: Lydia Pandya PROCEDURE: BREAST LIMITED UNILATERAL 07/29/2024 REASON FOR EXAM: BREAST PAIN Breast pain at the level of the prior biopsy site. TECHNIQUE: BREAST LIMITED UNILATERAL COMPARISON: Prior mammogram done earlier in the day.. FINDINGS: Left breast ultrasound was targeted to the lateral aspect of the left breast.. The breast tissue appears sonographically normal. No cyst, solid mass, or suspicious shadowing. US/Breast Limited Unilateral IMPRESSION: Impression: No sonographic abnormality is seen. Birads: BI-RADS 1: NEGATIVE. RECOMMEND ANNUAL MAMMOGRAPHIC SCREENING. Reading Location: [place] [address] CC: ALLISON Pandya; Dr. Joel Gaston MD ~ [employer] Pet [employer]er: Signed [facility] 04-12-2024 Evaluation note Diagnosis Onset Date Resolution Encounter for screening for malignant neoplasm of colon acute April 12, 2024 7:50am Thoracic back pain acute June 07, 2024 9:26am Mastodynia of left breast acute July 07, 2024 1:15pm Pelvic pain acute July 07 1:15pm Encounter for routine gynecological examination noneactive July 07, 2024 1:15pm [facility] Work Phone: 1(153) 315-577103-03-2025 [facility] Medical Records Department [address] [place] [address] History Physical Exam 04/12/24 0833 MR#: [id number] Acct: [id number] Name: FRANKO SARMIENTO Rep #: [id number] : 1960 64 From: Ashley Rodriguez MD PCP: Dr. Joel Gaston MD Status:REG [facility] Location: EN HPI - General General Date of Service: 04/12/24 HPI Narrative FRANKO SARMIENTO, is a 64 F who presents for screening colonoscopy. Patient denies any family history of colon cancer. Patient last colonoscopy was 5 years ago and Jose Elias had polyps at that time. Patient has bowel movements daily denies any blood. Patient denies any chronic abdominal pain/nausea/vomiting/reflux. [facility] Medical History Hx of colonic polyps Simple [...] 500 mg PO DAILY #90 tabs 02/13/23 Unknown Rx calcium carbonate 500 mg PO [...] BP Discharge Is Pt Admitted From a [facility], or a Detention: No After D/C, Where Do you Plan [...] malignant neoplasm of col (more content not included)...[facility]02-07-2025 Evaluation note* Diagnosis Onset Date Resolution Status Admit Date Thoracic back pain acute Februa ry 2024 9:31am Thoracic radiculopathy noneactive Fe bruary 2024 9:31am Encounter for screening for malignant neoplasm of colon acute Luis h 2024 7:50am [facility] Work Phone: 1(855) 439-408402-07-2025 Evaluation note* Diagnosis Onset Date Resolution Status Admit Date Thoracic back pain acute Februa ry 2024 9:31am Thoracic radiculopathy noneactive Fe bruary 2024 9:31am Encounter for screening for malignant neoplasm of colon acute Luis h 2024 7:50am Thoracic back pain acute June 07, 2024 9:26am Encounter for routine gynecological examination noneactive July 072024 1:15pm [facility] Work Phone: 1(665) 461-652212-05-2023 Procedure [facility] 01-14-2023 History and physical note Author Candice Ravi [facility] January 14, 2023 10:47am Note Date/Time January 14, 2023 1 0:47am [facility] Medical Records Department [address] [place] [address] History & Physical Exam 01/14/23 1047 MR#: [id number] Acct: [id number] Name: FRANKO SARMIENTO Rep #:[id number] : 1960 63 From: Candice nogueira MD PCP: Dr. Belle Miguel MD Status:PRE [facility] Location: [facility] History and Physical Date of Admission: 01/14/23 Vital Signs 08/28/2312:06 11/21/2310:14 11/21/2310:17 Height 5 ft 6 in 5 ft 6 in 5 ft 6 in Weight: 155 lb 6 oz BMI 25.0 BP 110/70 Temp 97.5 F L Intake Visit Reasons: Fluid in endometrium [place] [employer] Required: No Allergies Penicillins Allergy (Verified 11/21/22 [...] home: Yes additional social history: - Jose [facility] Fluid in endometrium Details: FRANKO SARMIENTO is [...] Anesthesia Del Locatn Provider FOB Unknown Madi Tripp Constitutional: Denies fatigue, night sweats, weight gain [...] comfortable and no acute distress Orientation: alert HENWI Head: normal to inspection and normocephalic Ears: [...] Retana on 11/21/22 11:26 Off Ur Spec [place] 1.010 Last Edit by Cadence Retana on [...] Blood Hemolyzed Negative Last Edit by Cadence Retana on 11/21/22 11:26 Office Urine Protein Negative [...] Miguel MD; Dr. Candice Ravi MD~ Signed [facility] Work Phone: Discharge summary Author Candice Ravi [facility] January 14, 2023 5:11pm Note Date/Time January 14, 2023 5 :12pm [facility] [address] [place] [address] Instructions for Home/Discharge Instructions 01/14/231710 MR#: [id number] Acct: [id number] Name: FRANKO SARMIENTO Rep #:[id number] : 1960 63 From: Candice nogueira MD PCP: Dr. Belle Miguel MD Status:REG [facility] Discharge Instructions Diet Discharge Diet: No restrictions [...] Up With: Candice Ravi MD When: Call [phone] to schedule appointment. Test Results: Test results [...] Order can be placed): Home, Self Care 01/14/231710<Electronically signed by Candice Ravi MD>Candice Ravi MD CC: Dr. Belle Miguel MD ~ Signed [facility] Work Phone: Evaluation note* Diagnosis Onset Date Resolution Status Diabetes acute Vitamin D deficiency acute Abnormal mammogram acute [facility] Work Phone: Evaluation note* Diagnosis Onset Date Resolution Status Bee sting acute Encounter for routine gynecological examination noneactive Diabetes acute Vitamin D deficiency acute Chronic thoracic back pain n oneactive Dysuria noneactive Acute low back pain noneacti ve [facility] Work Phone: Evaluation note* Diagnosis Onset Date Resolution Status Encounter for routine gynecological examination noneactive Diabetes acute Vitamin D deficiency acute Chronic thoracic back pain n oneactive Dysuria noneactive Acute low back pain noneacti ve Diabetes acute Thoracic back pain acute Vitamin D deficiency acute [facility] Work Phone: Evaluation note* Diagnosis Onset Date Resolution Status Diabetes acute Thoracic back pain acute Vitamin D deficiency acute [facility] Work Phone: Evaluation note* Diagnosis Onset Date Resolution Status Pelvic pain acute [facility] Work Phone: Evaluation note* Diagnosis Onset Date Resolution Status Abnormal collection of fluid in uterine cavity acute Pelvic pain acute [facility] Work Phone: Evaluation note* Diagnosis Onset Date Resolution Status Abnormal collection of fluid in uterine cavity acute Pelvic pain acute Abnormal collection of fluid in uterine cavity acute Pelvic pain acute [facility] Work Phone: Evaluation note* Diagnosis Onset Date Resolution Status Abnormal collection of fluid in uterine cavity acute Pelvic pain acute Simple endometrial hyperplasia without atypia acute Acute right otitis media acu te Acute upper respiratory infection acute [facility] Work Phone: Hospital Discharge instructions Additional Instructions Implant Used?: [facility] Work Phone: Reason for referral (narrative)No reason for referral information available[facility] Work Phone: Chief Complaint and Reason for Visit Chief Complaint est care Amb Documentation SCREENING LEFT BREAST BIOPSY abnormal mamm abnormal mamm Reason for Visit Diabetes Vitamin D deficiency Abnormal mammogram Chief Complaint BEE STING ON EYE AND FINGER 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 Amb Documentation Reason for Visit Bee sting Encounter for routine gynecological examination Diabetes Vitamin D deficiency Chronic thoracic back pain Dysuria Acute low back pain Chief Complaint 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 Amb Documentation THORACIC BACK [...] pain Vitamin D deficiency Chief Complaint Annual [employer] PELVIC AND PERINEAL PAIN Reason for Visit Pelvic pain Chief Complaint Annual [employer] PELVIC AND PERINEAL PAIN PEVIC PAIN Reason [...] Complaint Admit Date ENDOMETRIAL HYPERPLASIA February 05, 024 12:02pm COUGH, FATIGUE February 18, 2024 [...] SPINE June 07, 2024 9:2 6am 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, 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 1:15p m Reason for Visit Admit Date Thoracic back pain March 19, 2024 9 :31am Thoracic radiculopathy March 19 9:31am Encounter for screening for malignant ne oplasm of colon April 12, 2024 7:50am Thoracic back pain June 07, 2024 9:2 6am Encounter for routine gynecological exam ination July 07, 2024 1:15pm Chief Complaint Admit Date THORACIC RADICULOPATHY May 22, 2024 8:41am THORACIC SPINE June 07, 2024 9:2 6am 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, 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 1:15p m BREAST PAIN July 29, 2024 7:40 am Reason for Visit Admit Date Encounter for screening for malignant ne oplasm of colon April 12, 2024 7:50am Thoracic back pain June 07, 2024 9:2 6am Mastodynia of left breast July 07, 2024 1:15pm Pelvic pain July 07, 2024 1:15p m Encounter for routine gynecological exam ination July 07, 2024 1:15pm Family History No Family History Records Found Relationship Condition Age at Onset Recorded Date/T tor[place] mother Malignant neoplasm of breast Unknown Arthritis Unknown father Malignant neoplasm Unknown Advance Directives No Advanced Directives Records Found Advance Directive Response Recorded Date/ Time Living Will No January 01, 2 023 2:07pm Power of Front Office Secretary No January 01, 2023 2:07pm Advance Directive Response Recorded Date/ Time Living Will No January 01, 2 023 3:07pm Power of Front Office Secretary No January 01, 2023 3:07pm Advance Directive Response Recorded Date/ Time Living Will Yes April 07 025 3:43pm Do you have a Healthcare Power of Front Office Secretary? Yes April 07, 2024 3:43pm Name of Medical Power of Front Office Secretary April 07, 2024 3:43pm Summary Purpose Additional [...] Provider, Referri ng Provider Active Arlet Peres FREIGHT HUSTLER, FREIGHT HUSTLER-C Attending Provider Active Team Status: Inactive Member Role Status Dates Dr. Belle Miguel MD Primary Care Provider Active Arlet Peres FREIGHT HUSTLER, FREIGHT HUSTLER-C Attending Provider, Referring Provider Active Team Status: [...] Care Provider, Referri ng Provider Active Flavio JOHNSON PA Attending Provider Active Team Status: Inactive Member Role Status Dates Joel Gaston MD Primary Care Provide r, Attending Provider, Referring Provider Active Team Status: Active Member Role Status Dates Joel Gaston MD Primary Care Provider Active Team Status: Inactive Member Role Status Dates Joel Gaston MD Primary Care Provider Active St art: February 06, 2024 End: February 06, 2024 Dr. Brit Blount DO Attending Provider Activ e Start: February 06, 2024 End: February 06, 2024 Dr. Brit Blount DO Referring Provider Activ e Start: February 06, [...] 2024 Joelle Madden Attending Provider Active Start: Иван taylor 2024 Team Status: Inactive Member Role Status [...] July 07, 2024 End: July 07, 2024 Team Status: Active Member Role/Relationship Status Kiersten Gaston MD Primary Care Provider Active Team Status: Inactive Member Role/Relationship Status Kiersten Gaston MD Primary Care Provider Active St art: April 12, 2024 End: April 12, 2024 Joel Gaston MD Referring Provider Active Start : April 12, 2024 End: April 12, 2024 Dr. Ashley Rodriguez MD Attending Provider Active Start: April 12, 2024 End: April 12, 2024 Team Status: Active Member Role/Relationship Status Kiersten Gaston MD Primary Care Provider Active St art: April 12, 2024 Joel Gaston MD Referring Provider Active Start : April 12, 2024 Dr. Ashley Rodriguez MD Attending Provider Active Start: April 12, 2024 Dr. Ashley Rodriguez MD Other Provider Active S tart: April 12, 2024 Team Status: Inactive Member Role/Relationship Status Kiersten Gaston MD Primary Care Provider Active St art: May 22, 2024 End: May 22, 2024 ELIZABETH Hilario Attending Provider Active Star t: May 22, 2024 End: May 22, 2024 ELIZABETH Hilario Referring Provider Active Star t: May 22, 2024 End: May 22, 2024 Team Status: Inactive Member Role/Relationship Status Kiersten Gaston MD Primary Care Provider Active St art: June 07, 2024 End: June 07, 2024 Joel Gaston MD Referring Provider Active Start : June 07, 2024 End: June 07, 2024 ELIZABETH Hilario Attending Provider Active Star t: June 07, 2024 End: June 07, 2024 Team Status: Inactive Member Role/Relationship Status Kiersten Gaston MD Primary Care Provider Active St art: July 07, 2024 End: July 07, 2024 Joel Gaston MD Referring Provider Active Start : July 07, 2024 End: July 07, 2024 ALLISON Loaiza Attending Provider Active Start: July 07, 2024 End: July 07, 2024 Team Status: Inactive Member Role/Relationship Status Kiersten Gaston MD Primary Care Provider Active St art: July 29, 2024 End: July 29, 2024 ALLISON Loaiza Attending Provider Active Start: July 29, 2024 End: July 29, 2024 ALLISON Loaiza Referring Provider Active Start: July 29, 2024 End: July 29, 2024 INFORMATION SOURCE (unrecogn ized section and content) DATE CREATED AUTHOR 08/24/2024 [facility] FOR RECORDS PERTAINING TO PATIENTS WHO ARE [...] BE BASED ON THE PRIMARY CLINICAL RECORDS. [facility] [email or web address] [facility]. provides no warranty or guarantee of the accuracy or completeness of information in this document.
[2024-09-25 08:59] LABS: Anion Gap 9 (5-15); BUN 11 mg/dL (4-19); BUN/Creat Ratio 18.4 RATIO (10-20); Calcium,Total 10.2 mg/dL (7.6-11.0); Carbon Dioxide 25.9 mmol/L (21.0-32.0); Chloride 105 mmol/L (98-108); Glucose 141 mg/dL (70-99); Potassium 4.6 mmol/L (3.3-5.1)
[2024-09-25 10:23] LABS: Creatinine, Urine (random) 98.20 mg/dL (28.00-217.00); Microalbumin,Random Urine < 12.0 mg/L (<20 mg/L)
== END | disposition home or self-care (01) ==
LOC: LAB 07:16
PROVIDERS: PCP Family Medicine; Referring Provider Family Medicine; Visit Provider Family Medicine
DX: E11.9 Type 2 diabetes mellitus without complications (principal)
CPT/HCPCS: 36415; 80048; 82043; 82570